=== PATIENT | female | born 1945 | race Caucasian/White ===

== ENCOUNTER → 2016-07-20 | Outpatient (CLI) | payer MEDICARE ==
[2015-05-04 11:15] VITALS: BP 168/93
[~2016-07-20] MED LIST: ACLI400A2 IH; ALBU8.5H6 IH; AMLO5TAB2 PO; ASPI-482 PO; CALC600T4 PO; CARV6.25 PO; DIAZ5TAB PO; ESCI10TA PO; FENO134C10 PO; FERR-26 PO; FURO-69 PO; HYDR-2762 PO; LOSA50TA2 PO; SIMV20TA PO; Vitamin D
[2016-07-20 13:57] LABS: BASO % 1 % (0-3); EOS % 6 % (0-3); HEMATOCRIT 31.4 % (36.0-47.0); HEMOGLOBIN 9.8 g/dL (12.0-15.5); LYMPH # 0.7 x10^3/uL (1.0-4.8); LYMPH % 17 % (24-48); MEAN CORPUSCULAR HEMOGLOBIN 33 pg (25-35); MEAN CORPUSCULAR HGB CONC 31 g/dL (31-37); MEAN CORPUSCULAR VOLUME 104 fL (79-100); MONO % 10 % (0-9); NEUT % 65 % (31-73); PLATELET COUNT 158 x10^3/uL (140-400); RED BLOOD COUNT 3.01 x10^6/uL (3.50-5.40); RED CELL DISTRIBUTION WIDTH 13.3 % (11.5-14.5); WHITE BLOOD COUNT 3.9 x10^3/uL (4.0-11.0)
[2016-07-20 14:14] LABS: ALBUMIN 1.9 g/dL (3.4-5.0); ALBUMIN/GLOBULIN RATIO 0.5 (1.0-1.7); CALCIUM 9.5 mg/dL (8.5-10.1); CREATININE 2.3 mg/dL (0.6-1.0); GFR 20.8; MAGNESIUM 1.6 mg/dL (1.8-2.4); PHOSPHORUS 3.5 mg/dL (2.6-4.7); POTASSIUM 4.8 mmol/L (3.5-5.1); TOTAL BILIRUBIN 0.4 mg/dL (0.2-1.0); TOTAL PROTEIN 5.7 g/dL (6.4-8.2); URIC ACID 8.8 mg/dL (2.6-6.0)
[2016-07-21 01:11] LABS: UR PROTEIN RD 179.2 mg/dL (Not Estab.)
[2016-07-21 02:15] LABS: VITAMIN D25(OH)TOTAL 36.9 ng/mL (30.0-100.0)
== END | disposition home or self-care (01) ==
LOC: LAB 13:32
PROVIDERS: ATTEND Internal Medicine Nephrology
DX: I12.9 Hypertensive chronic kidney disease with stage 1 through stage 4 chronic kidney disease, or unspecified chronic kidney disease (principal); N18.4 Chronic kidney disease, stage 4 (severe); N20.2 Calculus of kidney with calculus of ureter; R60.0 Localized edema; D63.1 Anemia in chronic kidney disease; Z68.25 Body mass index [BMI] 25.0-25.9, adult
CPT/HCPCS: 36415; 80053; 82306; 82570; 83735; 84100; 84156; 84443; 84550; 85027

== ENCOUNTER → 2016-08-10 | Outpatient (CLI) | payer MEDICARE ==
[2015-05-04 11:15] VITALS: BP 168/93
--- NOTE | 2016-08-10 11:27 | RAD ---
Indication:Anemia. Chronic renal disease. Grayscale images of the abdomen were obtained. Comparison none Liver:A focal mass lesion is not seen in the visualized liver Gallbladder:No definite gallbladder pathology seen. The common bile duct diameter of approximately 6 mm is normal. Spleen:No significant finding. Occasional calcifications noted associated with the spleen. There is a 1.5 cm nodule immediately adjacent to the spleen likely reflecting a splenule Pancreas:Poorly visualized and largely obscured. That portion of the head and proximal body of the pancreas which was seen appeared unremarkable Kidneys:Both kidneys are somewhat small. Cortical thinning is noted associated with both. There are cysts seen associated with both kidneys the largest on the right measuring almost 4 cm and the largest on the left approaching 3 cm Abdominal aorta and IVC:The abdominal aorta was not well visualized and partially obscured. That portion of the abdominal aorta which was seen appeared unremarkable. The inferior vena cava, similarly, was not well visualized. Ancillary findings:None Impression:No acute finding. Chronic renal disease with bilateral cysts. Midline structures partially obscured
== END | disposition home or self-care (01) ==
LOC: US 10:28
PROVIDERS: ATTEND Nurse Practitioner Adult Health
DX: N18.9 Chronic kidney disease, unspecified (principal); N28.1 Cyst of kidney, acquired; D73.89 Other diseases of spleen; Z86.2 Personal history of diseases of the blood and blood-forming organs and certain disorders involving the immune mechanism
CPT/HCPCS: 76700

== ENCOUNTER → 2016-08-11 | Outpatient (CLI) | payer MEDICARE ==
[2015-05-04 11:15] VITALS: BP 168/93
== END | disposition home or self-care (01) ==
LOC: PMGWOUND 14:18
PROVIDERS: ATTEND Emergency Medicine Undersea and Hyperbaric Medicine
DX: I87.312 Chronic venous hypertension (idiopathic) with ulcer of left lower extremity (principal); L97.221 Non-pressure chronic ulcer of left calf limited to breakdown of skin; J44.9 Chronic obstructive pulmonary disease, unspecified; I12.9 Hypertensive chronic kidney disease with stage 1 through stage 4 chronic kidney disease, or unspecified chronic kidney disease; N18.4 Chronic kidney disease, stage 4 (severe); Z68.25 Body mass index [BMI] 25.0-25.9, adult; R60.9 Edema, unspecified; Z87.891 Personal history of nicotine dependence
CPT/HCPCS: 29581

== ENCOUNTER → 2016-08-15 | Outpatient (CLI) | payer MEDICARE ==
[2015-05-04 11:15] VITALS: BP 168/93
== END | disposition home or self-care (01) ==
LOC: PMGWOUND 14:11
PROVIDERS: ATTEND Emergency Medicine Undersea and Hyperbaric Medicine
DX: I87.312 Chronic venous hypertension (idiopathic) with ulcer of left lower extremity (principal); L97.221 Non-pressure chronic ulcer of left calf limited to breakdown of skin; J44.9 Chronic obstructive pulmonary disease, unspecified; Z87.891 Personal history of nicotine dependence
CPT/HCPCS: 29581

== ENCOUNTER → 2016-08-19 | Outpatient (CLI) | payer MEDICARE ==
[2015-05-04 11:15] VITALS: BP 168/93
== END | disposition home or self-care (01) ==
LOC: PMGWOUND 11:16
PROVIDERS: ATTEND Preventive Medicine Undersea and Hyperbaric Medicine
DX: I87.312 Chronic venous hypertension (idiopathic) with ulcer of left lower extremity (principal); L97.221 Non-pressure chronic ulcer of left calf limited to breakdown of skin; J44.9 Chronic obstructive pulmonary disease, unspecified; R60.9 Edema, unspecified; I12.9 Hypertensive chronic kidney disease with stage 1 through stage 4 chronic kidney disease, or unspecified chronic kidney disease; N18.4 Chronic kidney disease, stage 4 (severe); Z68.25 Body mass index [BMI] 25.0-25.9, adult; Z87.891 Personal history of nicotine dependence
CPT/HCPCS: 29581

== ENCOUNTER → 2016-08-24 | Outpatient (CLI) | payer MEDICARE ==
[2015-05-04 11:15] VITALS: BP 168/93
== END | disposition home or self-care (01) ==
LOC: PMGWOUND 12:48
PROVIDERS: ATTEND Surgery
DX: I87.312 Chronic venous hypertension (idiopathic) with ulcer of left lower extremity (principal); L97.221 Non-pressure chronic ulcer of left calf limited to breakdown of skin; J44.9 Chronic obstructive pulmonary disease, unspecified; I12.9 Hypertensive chronic kidney disease with stage 1 through stage 4 chronic kidney disease, or unspecified chronic kidney disease; N18.4 Chronic kidney disease, stage 4 (severe); Z87.891 Personal history of nicotine dependence
CPT/HCPCS: 29581

== ENCOUNTER → 2016-08-24 | Outpatient (CLI) | payer MEDICARE ==
[2015-05-04 11:15] VITALS: BP 168/93
--- NOTE | 2016-08-25 01:17 | PAIN ---
DATE OF SERVICE: 08/24/2016 PROGRESS NOTE FOR PAIN CLINIC DIAGNOSES: 1. Low back pain with lumbar degenerative disk disease. 2. Thoracic degenerative disk disease. HISTORY OF PRESENT ILLNESS: The patient is a 71-year-old female who returns for followup status post medication management with hydrocodone. The patient has been on very stable regimen with this, reports she is doing fairly well, about a 75-80% improvement as per previous report. With the medications, the patient reports no significant side effects, occasionally has constipation, but she stated it is once in a "blue ochoa." The patient reports her pain ranging from 0-4 on a scale of 10 and is currently 0. She has had a slight sinus infection and cold and she is not feeling very well today, because of that has a slight cough and sneeze, but otherwise is doing very well. The patient has had appropriate K-TRACS reporting as well as appropriate urinalysis to date without aberrancies. The patient reports otherwise doing well, is very pleased with her progress, reports her pain is well controlled, sleeping well at night, sporadically awakens but not because of pain. PHYSICAL EXAMINATION: VITAL SIGNS: Today, the patient's blood pressure is 157/78, pulse 69, respirations are 20, temperature is 97.9 degrees Fahrenheit. Height is 4 feet 10 inches. GENERAL: The patient is awake, alert, oriented, appropriate, very pleasant demeanor. HEENT: Head shows normocephalic, atraumatic. Extraocular movements are intact and symmetrical. The patient is wearing a nasal cannula. NECK: Shows anterior throat supple without palpable lymphadenopathy noted. Swallow reflex is symmetrical. Neck shows full rotational motion including extension and flexion. CHEST: Shows breath sounds coarse, but clear to auscultation bilaterally, normal on inspection. HEART: Shows S1 and S2 clear. No murmurs auscultated. ABDOMEN: Soft, nontender, nondistended. No palpable organomegaly is noted. No rebound or guarding. BACK: The patient's back shows grossly midline spine with increased thoracic kyphosis and some flattening of lumbar lordotic curvature and some mild tenderness to palpation in the lower portion of the thoracic paraspinous muscles in the upper and middle distribution of the lumbar paraspinous muscles, but normal muscle girth without atrophy, hypertrophy or radiation of pain. EXTREMITIES: Lower extremities show tenderness over the lower legs on the anterior and posterior aspect, but only diffusely and is consistent with previous exam, has approximately 1-2+ edema in the bilateral ankles to approximately half the distance to the knees on the bilateral lower extremities. The patient shows good flexion and extension at approximately 4 on a scale of 5 with dorsiflexion and extension bilaterally. Options were discussed with the patient. The patient's old chart was reviewed as her current medication regimen updated. Current review of systems updated today as well. We will refill the patient's hydrocodone 7.5 mg a 2-month supply with instructions, side effects to be aware of were discussed. Again, the patient has had appropriate K-TRACS reporting to date, appropriate urinalysis to date without aberrancies. The patient will follow up in approximately 2 months or sooner if necessary. YENNY LANCASTER MD DR: ALEXANDER/kvng JOB#: [id number] / [id number]
== END | disposition home or self-care (01) ==
LOC: PNCL 14:25
PROVIDERS: ATTEND Anesthesiology
DX: M51.36 Other intervertebral disc degeneration, lumbar region (principal); M51.34 Other intervertebral disc degeneration, thoracic region
CPT/HCPCS: G0463

== ENCOUNTER → 2016-08-31 | Outpatient (CLI) | payer MEDICARE ==
[2015-05-04 11:15] VITALS: BP 168/93
== END | disposition home or self-care (01) ==
LOC: PMGWOUND 12:48
PROVIDERS: ATTEND Surgery
DX: I87.312 Chronic venous hypertension (idiopathic) with ulcer of left lower extremity (principal); L97.221 Non-pressure chronic ulcer of left calf limited to breakdown of skin; J44.9 Chronic obstructive pulmonary disease, unspecified; I12.9 Hypertensive chronic kidney disease with stage 1 through stage 4 chronic kidney disease, or unspecified chronic kidney disease; N18.4 Chronic kidney disease, stage 4 (severe); Z87.891 Personal history of nicotine dependence
CPT/HCPCS: 99213

== ENCOUNTER → 2016-09-06 | Outpatient (CLI) | payer MEDICARE ==
[2015-05-04 11:15] VITALS: BP 168/93
== END | disposition home or self-care (01) ==
LOC: PMGWOUND 10:03
PROVIDERS: ATTEND Emergency Medicine Undersea and Hyperbaric Medicine
DX: I87.312 Chronic venous hypertension (idiopathic) with ulcer of left lower extremity (principal); L97.221 Non-pressure chronic ulcer of left calf limited to breakdown of skin; J44.9 Chronic obstructive pulmonary disease, unspecified; Z87.891 Personal history of nicotine dependence; I12.9 Hypertensive chronic kidney disease with stage 1 through stage 4 chronic kidney disease, or unspecified chronic kidney disease; N18.4 Chronic kidney disease, stage 4 (severe); R60.9 Edema, unspecified; Z68.25 Body mass index [BMI] 25.0-25.9, adult
CPT/HCPCS: 29581

== ENCOUNTER → 2016-09-09 | Outpatient (CLI) | payer MEDICARE ==
[2015-05-04 11:15] VITALS: BP 168/93
== END | disposition home or self-care (01) ==
LOC: PMGWOUND 11:54
PROVIDERS: ATTEND Preventive Medicine Undersea and Hyperbaric Medicine
DX: I87.312 Chronic venous hypertension (idiopathic) with ulcer of left lower extremity (principal); L97.221 Non-pressure chronic ulcer of left calf limited to breakdown of skin; J44.9 Chronic obstructive pulmonary disease, unspecified; I12.9 Hypertensive chronic kidney disease with stage 1 through stage 4 chronic kidney disease, or unspecified chronic kidney disease; N18.4 Chronic kidney disease, stage 4 (severe); Z87.891 Personal history of nicotine dependence
CPT/HCPCS: 29581

== ENCOUNTER → 2016-09-15 | Outpatient (CLI) | payer MEDICARE ==
[2015-05-04 11:15] VITALS: BP 168/93
== END | disposition home or self-care (01) ==
LOC: PMGWOUND 10:42
PROVIDERS: ATTEND Emergency Medicine Undersea and Hyperbaric Medicine
DX: I87.312 Chronic venous hypertension (idiopathic) with ulcer of left lower extremity (principal); L97.221 Non-pressure chronic ulcer of left calf limited to breakdown of skin; J44.9 Chronic obstructive pulmonary disease, unspecified; Z87.891 Personal history of nicotine dependence
CPT/HCPCS: 29581

== ENCOUNTER → 2016-09-22 | Outpatient (CLI) | payer MEDICARE ==
[2015-05-04 11:15] VITALS: BP 168/93
== END | disposition home or self-care (01) ==
LOC: PMGWOUND 11:06
PROVIDERS: ATTEND Emergency Medicine Undersea and Hyperbaric Medicine
DX: I87.312 Chronic venous hypertension (idiopathic) with ulcer of left lower extremity (principal); L97.221 Non-pressure chronic ulcer of left calf limited to breakdown of skin; J44.9 Chronic obstructive pulmonary disease, unspecified; I12.9 Hypertensive chronic kidney disease with stage 1 through stage 4 chronic kidney disease, or unspecified chronic kidney disease; E11.22 Type 2 diabetes mellitus with diabetic chronic kidney disease; N18.4 Chronic kidney disease, stage 4 (severe); Z87.891 Personal history of nicotine dependence
CPT/HCPCS: 99213

== ENCOUNTER → 2016-10-19 | Outpatient (CLI) | payer MEDICARE ==
[2015-05-04 11:15] VITALS: BP 168/93
[~2016-10-19] MED LIST changes: -ESCI10TA PO; +ESCITALOPRAM OX10 MG PO
[2016-10-19 12:52] LABS: BASO % 0 % (0-3); EOS % 4 % (0-3); HEMATOCRIT 29.4 % (36.0-47.0); HEMOGLOBIN 9.2 g/dL (12.0-15.5); LYMPH # 0.6 x10^3/uL (1.0-4.8); LYMPH % 12 % (24-48); MEAN CORPUSCULAR HEMOGLOBIN 34 pg (25-35); MEAN CORPUSCULAR HGB CONC 31 g/dL (31-37); MEAN CORPUSCULAR VOLUME 108 fL (79-100); MONO % 9 % (0-9); NEUT % 75 % (31-73); PLATELET COUNT 145 x10^3/uL (140-400); RED BLOOD COUNT 2.72 x10^6/uL (3.50-5.40); RED CELL DISTRIBUTION WIDTH 16.2 % (11.5-14.5); WHITE BLOOD COUNT 5.6 x10^3/uL (4.0-11.0)
[2016-10-19 12:58] LABS: ALBUMIN 1.8 g/dL (3.4-5.0); ALBUMIN/GLOBULIN RATIO 0.5 (1.0-1.7); CALCIUM 8.7 mg/dL (8.5-10.1); CREATININE 2.6 mg/dL (0.6-1.0); GFR 18.1; MAGNESIUM 2.3 mg/dL (1.8-2.4); PHOSPHORUS 4.5 mg/dL (2.6-4.7); TOTAL BILIRUBIN 0.5 mg/dL (0.2-1.0); TOTAL PROTEIN 5.6 g/dL (6.4-8.2); URIC ACID 4.8 mg/dL (2.6-6.0)
[2016-10-19 13:03] LABS: POTASSIUM 5.2 mmol/L (3.5-5.1)
[2016-10-20 04:16] LABS: PTH INTACT 24 pg/mL (15-65)
[2016-10-20 06:17] LABS: UR PROTEIN RD 776.8 mg/dL (Not Estab.)
== END | disposition home or self-care (01) ==
LOC: LAB 12:11
PROVIDERS: ATTEND Internal Medicine Nephrology
DX: I12.9 Hypertensive chronic kidney disease with stage 1 through stage 4 chronic kidney disease, or unspecified chronic kidney disease (principal); N18.4 Chronic kidney disease, stage 4 (severe); E79.0 Hyperuricemia without signs of inflammatory arthritis and tophaceous disease; R60.9 Edema, unspecified
CPT/HCPCS: 36415; 80053; 82570; 83735; 83970; 84100; 84156; 84443; 84550; 85027

== ENCOUNTER → 2016-10-19 | Outpatient (CLI) | payer MEDICARE ==
[2015-05-04 11:15] VITALS: BP 168/93
== END | disposition home or self-care (01) ==
LOC: PNCL 11:14
PROVIDERS: ATTEND Anesthesiology
DX: M51.36 Other intervertebral disc degeneration, lumbar region (principal); G89.18 Other acute postprocedural pain
CPT/HCPCS: G0463

== ENCOUNTER → 2016-11-01 | Outpatient (CLI) | payer MEDICARE ==
[2015-05-04 11:15] VITALS: BP 168/93
== END | disposition home or self-care (01) ==
LOC: PMGWOUND 13:48
PROVIDERS: ATTEND Emergency Medicine Undersea and Hyperbaric Medicine
DX: I87.312 Chronic venous hypertension (idiopathic) with ulcer of left lower extremity (principal); E11.622 Type 2 diabetes mellitus with other skin ulcer; L97.221 Non-pressure chronic ulcer of left calf limited to breakdown of skin; J44.9 Chronic obstructive pulmonary disease, unspecified; E11.22 Type 2 diabetes mellitus with diabetic chronic kidney disease; I12.9 Hypertensive chronic kidney disease with stage 1 through stage 4 chronic kidney disease, or unspecified chronic kidney disease; N18.4 Chronic kidney disease, stage 4 (severe); Z68.25 Body mass index [BMI] 25.0-25.9, adult; Z87.891 Personal history of nicotine dependence
CPT/HCPCS: 29581

== ENCOUNTER → 2016-11-08 | Outpatient (CLI) | payer MEDICARE ==
[2015-05-04 11:15] VITALS: BP 168/93
== END | disposition home or self-care (01) ==
LOC: PMGWOUND 09:15
PROVIDERS: ATTEND Emergency Medicine Undersea and Hyperbaric Medicine
DX: I87.312 Chronic venous hypertension (idiopathic) with ulcer of left lower extremity (principal); L97.221 Non-pressure chronic ulcer of left calf limited to breakdown of skin; J44.9 Chronic obstructive pulmonary disease, unspecified; I12.9 Hypertensive chronic kidney disease with stage 1 through stage 4 chronic kidney disease, or unspecified chronic kidney disease; N18.4 Chronic kidney disease, stage 4 (severe); Z87.891 Personal history of nicotine dependence
CPT/HCPCS: 99214

== ENCOUNTER → 2016-11-15 | Outpatient (CLI) | payer MEDICARE ==
[2015-05-04 11:15] VITALS: BP 168/93
== END | disposition home or self-care (01) ==
LOC: PMGWOUND 13:20
PROVIDERS: ATTEND Emergency Medicine Undersea and Hyperbaric Medicine
DX: I87.312 Chronic venous hypertension (idiopathic) with ulcer of left lower extremity (principal); E11.622 Type 2 diabetes mellitus with other skin ulcer; L97.221 Non-pressure chronic ulcer of left calf limited to breakdown of skin; L03.115 Cellulitis of right lower limb; J44.9 Chronic obstructive pulmonary disease, unspecified; E11.22 Type 2 diabetes mellitus with diabetic chronic kidney disease; I12.9 Hypertensive chronic kidney disease with stage 1 through stage 4 chronic kidney disease, or unspecified chronic kidney disease; N18.4 Chronic kidney disease, stage 4 (severe); R60.9 Edema, unspecified; Z87.891 Personal history of nicotine dependence
CPT/HCPCS: 99214

== ENCOUNTER → 2016-11-22 | Outpatient (CLI) | payer MEDICARE ==
[2015-05-04 11:15] VITALS: BP 168/93
== END | disposition home or self-care (01) ==
LOC: PMGWOUND 13:41
PROVIDERS: ATTEND Emergency Medicine Undersea and Hyperbaric Medicine
DX: I87.312 Chronic venous hypertension (idiopathic) with ulcer of left lower extremity (principal); L97.221 Non-pressure chronic ulcer of left calf limited to breakdown of skin; J44.9 Chronic obstructive pulmonary disease, unspecified; E11.22 Type 2 diabetes mellitus with diabetic chronic kidney disease; N18.4 Chronic kidney disease, stage 4 (severe); Z87.891 Personal history of nicotine dependence
CPT/HCPCS: 99214

== ENCOUNTER → 2016-11-29 | Outpatient (CLI) | payer MEDICARE ==
[2015-05-04 11:15] VITALS: BP 168/93
== END | disposition home or self-care (01) ==
LOC: PMGWOUND 13:13
PROVIDERS: ATTEND Emergency Medicine Undersea and Hyperbaric Medicine
DX: I87.312 Chronic venous hypertension (idiopathic) with ulcer of left lower extremity (principal); E11.622 Type 2 diabetes mellitus with other skin ulcer; L97.221 Non-pressure chronic ulcer of left calf limited to breakdown of skin; J44.9 Chronic obstructive pulmonary disease, unspecified; E11.22 Type 2 diabetes mellitus with diabetic chronic kidney disease; I12.9 Hypertensive chronic kidney disease with stage 1 through stage 4 chronic kidney disease, or unspecified chronic kidney disease; N18.4 Chronic kidney disease, stage 4 (severe); Z99.2 Dependence on renal dialysis; Z87.891 Personal history of nicotine dependence; Z68.25 Body mass index [BMI] 25.0-25.9, adult
CPT/HCPCS: 99214

== ENCOUNTER → 2016-12-02 | Outpatient (CLI) | payer MEDICARE ==
[2015-05-04 11:15] VITALS: BP 168/93
[2016-12-02 13:47] LABS: BASO % 0 % (0-3); EOS % 3 % (0-3); HEMATOCRIT 27.7 % (36.0-47.0); HEMOGLOBIN 8.8 g/dL (12.0-15.5); LYMPH # 0.6 x10^3/uL (1.0-4.8); LYMPH % 8 % (24-48); MEAN CORPUSCULAR HEMOGLOBIN 35 pg (25-35); MEAN CORPUSCULAR HGB CONC 32 g/dL (31-37); MEAN CORPUSCULAR VOLUME 111 fL (79-100); MONO % 11 % (0-9); NEUT % 78 % (31-73); PLATELET COUNT 153 x10^3/uL (140-400); RED BLOOD COUNT 2.51 x10^6/uL (3.50-5.40); RED CELL DISTRIBUTION WIDTH 16.2 % (11.5-14.5); WHITE BLOOD COUNT 7.5 x10^3/uL (4.0-11.0)
[2016-12-02 14:02] LABS: ALBUMIN 1.6 g/dL (3.4-5.0); CALCIUM 8.5 mg/dL (8.5-10.1); CREATININE 2.5 mg/dL (0.6-1.0); GFR 18.9; PHOSPHORUS 3.9 mg/dL (2.6-4.7); POTASSIUM 5.2 mmol/L (3.5-5.1)
[2016-12-02 14:40] LABS: PLT ESTIMATE ADEQUATE (ADEQUATE)
== END | disposition home or self-care (01) ==
LOC: LAB 12:47
PROVIDERS: ATTEND Internal Medicine Nephrology
DX: I12.9 Hypertensive chronic kidney disease with stage 1 through stage 4 chronic kidney disease, or unspecified chronic kidney disease (principal); N18.5 Chronic kidney disease, stage 5; D63.1 Anemia in chronic kidney disease; R60.9 Edema, unspecified
CPT/HCPCS: 36415; 80069; 85025

== ENCOUNTER → 2016-12-06 | Outpatient (CLI) | payer MEDICARE ==
[2015-05-04 11:15] VITALS: BP 168/93
[~2016-12-06] MED LIST changes: +CHOL10003 PO
== END | disposition home or self-care (01) ==
LOC: PMGWOUND 13:23
PROVIDERS: ATTEND Emergency Medicine Undersea and Hyperbaric Medicine
DX: I87.312 Chronic venous hypertension (idiopathic) with ulcer of left lower extremity (principal); E11.622 Type 2 diabetes mellitus with other skin ulcer; L97.221 Non-pressure chronic ulcer of left calf limited to breakdown of skin; J44.9 Chronic obstructive pulmonary disease, unspecified; E11.22 Type 2 diabetes mellitus with diabetic chronic kidney disease; I12.0 Hypertensive chronic kidney disease with stage 5 chronic kidney disease or end stage renal disease; N18.5 Chronic kidney disease, stage 5; Z99.2 Dependence on renal dialysis; Z87.891 Personal history of nicotine dependence
CPT/HCPCS: 99214

== ENCOUNTER 2016-12-09 07:10 | Inpatient (IN) | payer MEDICARE ==
[~2016-12-09] VITALS: Ht 124.5 cm; Wt 47.7 kg
[~2016-12-09 07:10] MED LIST changes: -CHOL10003 PO
[2016-12-09] MEDS ORDERED: 0.9 % SODIUM CHLORIDE 10 ML DISP.SYRIN. IV PRN (07:30)
[2016-12-09] MEDS ORDERED: IPRATRPIUM/ALBUTEROL 0.5/2.5MG 3 ML NEBU. NEB ONE ×3 (07:45→08:15)
--- NOTE | 2016-12-09 07:45 | PHYS DOC ---
Past Medical History Past Medical History: Anemia, CAD, CHF, Depression, High Cholesterol, Heart Disease, Hypertension Past Surgical History: Coronary Bypass Surgery, Knee Replacement, Other Additional Past Surgical Histo: cagb, Alcohol Use: None Drug Use: None Adult General Chief Complaint Chief Complaint: SHORTNESS OF BREATH ANNA CASTILLO Is a pleasant 71 female with history of COPD, CAD, hypertension, hyperlipidemia , emphysema who presents with progressive shortness of breath and referral from her primary care doctor to the emergency department for fear of congestive heart failure. She has history of renal insufficiency and is presently being monitored for her kidney function for possible dialysis shunt placement. Over the last several days she has had increased shortness of breath with exertion. Although she is supposed be taking DuoNebs at home she has not used any treatments. Family has noticed an noted increased shortness of breath with exertion without chest pain, she's had a slight nonproductive cough without fevers chills or URI symptoms. Patient denies any change in medications or any food or salt indiscretion. Patient denies any weight gain or night sweats, fevers, chills or other symptoms. Patient is normally home with her been able to function at home but has noticed decreased exercise tolerance as well. She does see a fisheries officer, press department manager and wildlife refuge specialist here at [facility].. At this point in time she is only complaining of shortness of breath. She does have a history of lower extremity edema in secondary to vein retrieval for her bypass surgery. At bypass surgery was completed 7 years ago. Differential diagnosis: Acute myocardial ischemia, heart failure, cardiac tamponade, bronchospasm, pulmonary embolism, pneumothorax, pulmonary infection i.e. bronchitis or pneumonia, upper airway obstruction, anaphylaxis, aspiration , psychogenic, pulmonary contusion, toxidrome, pneumomediastinum, noncardiogenic pulmonary edema or ARDS, COPD, tuberculosis, cystic fibrosis, asthma, high altitude pulmonary edema, valvular dysfunction, cardiac dysrhythmia , stroke, neuromuscular diseases like myasthenia gravis gravis, ALS, Guillain- Hernandez syndrome, metabolic acidosis to include diabetic ketoacidosis, sepsis, and obstructive disorders like massive obesity was considered upon arrival. Review of Systems Review of Systems Constitutional: Denies fever or chills [] Eyes: Denies change in visual acuity, redness, or eye pain [] HENT: Denies nasal congestion or sore throat [] Respiratory: He does have a nonproductive cough and increasing shortness of breath. Cardiovascular: No additional information not addressed in HPI [] GI: Denies abdominal pain, nausea, vomiting, bloody stools or diarrhea [] : Denies dysuria or hematuria [] Musculoskeletal: Denies back pain or joint pain [] Integument: Denies rash or skin lesions [] Neurologic: She describes global weakness. She has had several falls over the last several weeks due to his generalized weakness. Endocrine: Denies polyuria or polydipsia [] Current Medications Current Medications Current Medications Medications (Trade) Dose Ordered Sig/Jacquie Start Time Stop Time Status Last Admin Dose Admin Acetaminophen (Tylenol) 650 mg PRN Q4HRS PRN 12/09/16 08:45 12/10/16 08:44 Albuterol/ Ipratropium (Duoneb) 3 ml RTQID 12/09/16 12:00 12/10/16 11:59 Aspirin (Children'S Aspirin) 324 mg 1X ONCE 12/09/16 08:00 12/09/16 08:01 DC 12/09/16 08:09 324 MG Ciprofloxacin Lactate 200 ml @ 200 mls/hr 1X ONCE 12/09/16 09:30 12/09/16 10:29 Furosemide (Lasix) 40 mg 1X ONCE 12/09/16 09:00 12/09/16 09:01 DC Methylprednisolone Sodium Succinate (SOLU-Medrol 125MG VIAL) 125 mg 1X ONCE 12/09/16 08:15 12/09/16 08:16 DC 12/09/16 08:08 125 MG Nitroglycerin (Nitrostat) 0.4 mg PRN Q5MIN PRN 12/09/16 08:45 12/10/16 08:44 Ondansetron HCl (Zofran) 4 mg PRN Q8HRS PRN 12/09/16 08:45 12/10/16 08:44 Sodium Chloride (Normal Saline Flush) 10 ml QSHIFT PRN 12/09/16 07:30 Allergies Allergies Allergies Coded Allergies Type Severity Reaction Last Updated Verified quinine Allergy Severe Anaphylaxis 04/26/13 Yes Physical Exam Physical Exam Vital signs recorded on the chart patient did be hypertensive otherwise normal looking vital signs. Constitutional: Impression is thin and cachectic with an increased respiratory rate although not using accessory muscles or retractions. Patient is pale looking very comfortable. She is nontoxic in appearance. HENT: Normocephalic, atraumatic, bilateral external ears normal, oropharynx moist, no oral exudates, nose normal. [] Eyes: PERRLA, EOMI, conjunctiva are very pale and injected. Neck: Normal range of motion, no tenderness, supple, no stridor. [] Cardiovascular:Heart rate regular rhythm, no murmur [] Lungs & Thorax: Decreased breath sounds bilaterally with wheezes throughout. She has no focal area of crackles or rales. Abdomen: Bowel sounds normal, soft, no tenderness, no masses, no pulsatile masses. [] Skin: It is warm and dry and there are multiple areas of ecchymoses secondary to falls revolving last several weeks. No focal bony tenderness to palpation the skin tears no rash. Patient does have some weeping of her lower legs bilaterally and that she shows +3 pitting edema up to the midthigh. Back: No tenderness, no CVA tenderness. [] Extremities: No tenderness, no cyanosis, no clubbing, ROM intact, significant edema of the lower extremities bilaterally. Neurologic: Alert and oriented X 3, normal motor function, normal sensory function, no focal deficits noted. [] Psychologic: Affect normal, judgement normal, mood normal. [] Current Patient Data Vital Signs Vital Signs Date Time Temp Pulse Resp B/P (MAP) Pulse Ox O2 Delivery O2 Flow Rate FiO2 12/09/16 07:55 97 Nasal Cannula 2.0 12/09/16 07:20 97.9 77 16 142/87 (105) 97.9 Lab Values Laboratory Tests Test 12/09/16 07:30 12/09/16 07:55 White Blood Count 7.0 x10^3/uL (4.0-11.0) Red Blood Count 2.95 x10^6/uL (3.50-5.40) L Hemoglobin 10.1 g/dL (12.0-15.5) L Hematocrit 32.4 % (36.0-47.0) L Mean Corpuscular Volume 110 fL (79-100) H Mean Corpuscular Hemoglobin 34 pg (25-35) Mean Corpuscular Hemoglobin Concent 31 g/dL (31-37) Red Cell Distribution Width 16.1 % (11.5-14.5) H Platelet Count 226 x10^3/uL (140-400) Neutrophils (%) (Auto) 78 % (31-73) H Lymphocytes (%) (Auto) 10 % (24-48) L Monocytes (%) (Auto) 10 % (0-9) H Eosinophils (%) (Auto) 3 % (0-3) Basophils (%) (Auto) 1 % (0-3) Neutrophils # (Auto) 5.4 x10^3uL (1.8-7.7) Lymphocytes # (Auto) 0.7 x10^3/uL (1.0-4.8) L Monocytes # (Auto) 0.7 x10^3/uL (0.0-1.1) Eosinophils # (Auto) 0.2 x10^3/uL (0.0-0.7) Basophils # (Auto) 0.0 x10^3/uL (0.0-0.2) Sodium Level 142 mmol/L (136-145) Potassium Level 5.2 mmol/L (3.5-5.1) H Chloride Level 105 mmol/L (98-107) Carbon Dioxide Level 33 mmol/L (21-32) H Anion Gap 4 (6-14) L Blood Urea Nitrogen 48 mg/dL (7-20) H Creatinine 2.2 mg/dL (0.6-1.0) H Estimated GFR (Cockcroft-Gault) 21.9 Glucose Level 116 mg/dL (70-99) H Calcium Level 8.8 mg/dL (8.5-10.1) Magnesium Level 2.2 mg/dL (1.8-2.4) Total Bilirubin 0.3 mg/dL (0.2-1.0) Direct Bilirubin 0.2 mg/dL (0.0-0.2) Aspartate Amino Transferase (AST) 38 U/L (15-37) H Alanine Aminotransferase (ALT) 21 U/L (14-59) Alkaline Phosphatase 84 U/L (46-116) Creatine Kinase 36 U/L (26-192) Creatine Kinase MB (Mass) 1.5 ng/mL (0.0-3.6) Creatine Kinase MB Relative Index % (0-4) Troponin I Quantitative 0.024 ng/mL (0.000-0.055) HO-Bmd-P-Type Natriuretic Peptide 38611 pg/mL (0-124) H Total Protein 5.4 g/dL (6.4-8.2) L Albumin 1.6 g/dL (3.4-5.0) L Lipase 129 U/L (73-393) Thyroid Stimulating Hormone (TSH) 1.524 uIU/mL (0.358-3.74) Urine Collection Type Unknown Urine Color Yellow Urine Clarity Cloudy Urine pH 7.0 Urine Specific [place] 1.010 Urine Protein >=300 mg/dL (NEG-TRACE) Urine Glucose (UA) Negative mg/dL (NEG) Urine Ketones (Stick) Negative mg/dL (NEG) Urine Blood Small (NEG) Urine Nitrite Negative (NEG) Urine Bilirubin Negative (NEG) Urine Urobilinogen Dipstick 0.2 mg/dL (0.2 mg/dL) Urine Leukocyte Esterase Moderate (NEG) Urine RBC 1-2 /HPF (0-2) Urine WBC >40 /HPF (0-4) Urine Squamous Epithelial Cells Few /LPF Urine Bacteria Many /HPF (0-FEW) Laboratory Tests 12/09/16 07:30 Laboratory Tests 12/09/16 07:30 EKG EKG EKG read by Dr. Solano timed 7:22 AM dosage heart rate is 77. Overall 152 QRS of 68 patient's QTc is 100 which is within normal limits. Patient's rhythm is regular is narrow demonstrating a few PVCs there is some T-wave flattening in the lateral leads which may represent ischemia. EKG read by Dr. Solano [] Radiology/Procedures Radiology/Procedures [] [address] [place] [address] IMAGING REPORT Signed PATIENT: SILVANA RASHEED ACCOUNT: [id number] : 1945 LOCATION: ER AGE: 71 SEX: F EXAM STATUS: REG ER ORD. PHYSICIAN: ANGELA SOLANO MD REASON: sob PROCEDURE: PORTABLE CHEST 1V Chest radiograph 12/09/2016 9:29 AM Indication: Shortness of breath and cough for 2 weeks Comparison: Chest radiograph 01/22/2013 Technique: Single portable upright frontal view of the chest is provided. Findings: Median sternotomy changes are present. Spinal augmentation changes are noted in the upper to mid thoracic spine. Cardiomediastinal silhouette is enlarged, stable. There is mild pulmonary vascular congestion. There is right basilar patchy airspace disease which may represent atelectasis and/or infiltrates in the appropriate clinical setting. Calcified granulomas identified in the right midlung, stable. No pleural effusions or pneumothorax. Impression: 1. Stable enlarged cardiomediastinal silhouette with increased mild pulmonary vascular congestion which may be seen in the setting of congestive heart failure. 2. Increased airspace disease at the right lung base may reflect atelectasis and/or infiltrates. Follow-up radiograph in 3-4 weeks is recommended to ensure resolution. DICTATED and SIGNED BY: CLEMENTINA SIERRA MD DATE: 12/09/16 1067 CC: ANGELA SOLANO MD; MINDI DURAN ~ Course & Med Decision Making Course & Med Decision Making Pertinent Labs and Imaging studies reviewed. (See chart for details) [Organ Assembler note: Dr. Arvizu Organ Assembler called at of the service IM Consult called back at 8:42 am Discussed the case I presented and they agreed with admission. Time of acceptance 8:45 Differential diagnosis: Acute myocardial ischemia, heart failure, cardiac tamponade, bronchospasm, pulmonary embolism, pneumothorax, pulmonary infection i.e. bronchitis or pneumonia, upper airway obstruction, anaphylaxis, aspiration , psychogenic, pulmonary contusion, toxidrome, pneumomediastinum, noncardiogenic pulmonary edema or ARDS, COPD, tuberculosis, cystic fibrosis, asthma, high altitude pulmonary edema, valvular dysfunction, cardiac dysrhythmia , stroke, neuromuscular diseases like myasthenia gravis gravis, ALS, Guillain- Hernandez syndrome, metabolic acidosis to include diabetic ketoacidosis, sepsis, and obstructive disorders like massive obesity considered upon arrival and given her history of COPD and high prior heart disease congestive heart failure and is very likely as well as pulmonary edema. Patient over the course of her exam was given neb treatments and she felt markedly better as well as Solu- Medrol. It was noted that her B when was greater than 20,000 as well as an elevated creatinine of 2.2. But based on her physical exam without crackles or rales at the bases do not think she is at fluid overload on initial evaluation. Her chest x-ray did demonstrate increased cardia megaly with cephalization consistent with congestive heart failure. Although her B UN is 48 and creatinine is 2.2 she probably could use the removal of extra fluids at this time. I foresee given her other chronic lung disease of emphysema and COPD with there is also the possibility of atelectasis versus lower lung scar she had no elevation of her white count and a left shift. She was chronically anemic which is not new for this patient. Patient also noted to have a possible urinary tract infection with white blood cells. And leuk esterase in her urine with only a few epithelial cells. Given her debility patient had blood cultures drawn as well as lactic acid level I do not believe she is septic. Evaluate her for signs of respiratory and circulatory insufficiency. Patient tells me that their symptoms given during CC are improved. We reviewed labs and radiology reports with patient and any family at bedside. Patient feels markedly better already time is now 8:30 AM. Given her comorbidities and multiple medical problems I will admit her to the hospital. Total medicine consultation above please Impression at this time is COPD, CHF, UTI, generalized weakness, chronic anemia , chronic renal insufficiency, I spent approximately 45-50 minutes working and engaged directly in the patient care providing critical care evaluation this includes but not limited to time spent engaged in work directly related to the individual patients care. I spent time at the bedside, reviewing test results, discussing the case with staff, documenting the medical record and time spent with EMS discussing specific treatment issues when the patient presented and during his evaluation. Primary press department manager consult as well Dragon Disclaimer Dragon Disclaimer This electronic medical record was generated, in whole or in part, using a voice recognition dictation system. Departure Departure Impression: Primary Impression: COPD (chronic obstructive pulmonary disease) Additional Impressions: CHF (congestive heart failure) UTI (urinary tract infection) Weakness Anemia Renal insufficiency Disposition: ADMITTED INPATIENT Admitting Physician: Other Condition: GUARDED Referrals: MINDI DURAN (PCP) Problem Qualifiers ANGELA SOLANO MD Dec 09, 2016 07:45
[2016-12-09 07:48] LABS: BASO % 1 % (0-3); EOS % 3 % (0-3); HEMATOCRIT 32.4 % (36.0-47.0); HEMOGLOBIN 10.1 g/dL (12.0-15.5); LYMPH # 0.7 x10^3/uL (1.0-4.8); LYMPH % 10 % (24-48); MEAN CORPUSCULAR HEMOGLOBIN 34 pg (25-35); MEAN CORPUSCULAR HGB CONC 31 g/dL (31-37); MEAN CORPUSCULAR VOLUME 110 fL (79-100); MONO % 10 % (0-9); NEUT % 78 % (31-73); PLATELET COUNT 226 x10^3/uL (140-400); RED BLOOD COUNT 2.95 x10^6/uL (3.50-5.40); RED CELL DISTRIBUTION WIDTH 16.1 % (11.5-14.5)
--- NOTE | 2016-12-09 07:50 | RAD ---
Chest radiograph 12/09/2016 9:29 AM Indication: Shortness of breath and cough for 2 weeks Comparison: Chest radiograph 01/22/2013 Technique: Single portable upright frontal view of the chest is provided. Findings: Median sternotomy changes are present. Spinal augmentation changes are noted in the upper to mid thoracic spine. Cardiomediastinal silhouette is enlarged, stable. There is mild pulmonary vascular congestion. There is right basilar patchy airspace disease which may represent atelectasis and/or infiltrates in the appropriate clinical setting. Calcified granulomas identified in the right midlung, stable. No pleural effusions or pneumothorax. Impression: 1. Stable enlarged cardiomediastinal silhouette with increased mild pulmonary vascular congestion which may be seen in the setting of congestive heart failure. 2. Increased airspace disease at the right lung base may reflect atelectasis and/or infiltrates. Follow-up radiograph in 3-4 weeks is recommended to ensure resolution.
[2016-12-09] MEDS ORDERED: ASPIRIN CHEWABLE 81 MG TABLET. PO ONE (08:00)
--- NOTE | 2016-12-09 08:00 | EKG ---
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
[2016-12-09 08:03] LABS: BILIRUBIN,URINE NEGATIVE (NEG); GLUCOSE,URINE NEGATIVE (NEG); NITRITE,URINE NEGATIVE (NEG); PROTEIN,URINE >=300 mg/dL (NEG-TRACE); UROBILINOGEN,URINE 0.2 mg/dL (0.2 mg/dL)
[2016-12-09 08:06] LABS: CALCIUM 8.8 mg/dL (8.5-10.1); CREATININE 2.2 mg/dL (0.6-1.0); GFR 21.9; POTASSIUM 5.2 mmol/L (3.5-5.1)
[2016-12-09 08:14] LABS: ALBUMIN 1.6 g/dL (3.4-5.0); DIRECT BILIRUBIN 0.2 mg/dL (0.0-0.2); MAGNESIUM 2.2 mg/dL (1.8-2.4); TOTAL BILIRUBIN 0.3 mg/dL (0.2-1.0); TOTAL PROTEIN 5.4 g/dL (6.4-8.2)
[2016-12-09] MEDS ORDERED: methylPREDNISolone SOD SUCC PF 125 MG/2 ML VIAL. IV ONE (08:15)
[2016-12-09 08:20] LABS: CKMB MASS 1.5 ng/mL (0.0-3.6); CREATINE KINASE 36 U/L (26-192)
[2016-12-09 08:23] LABS: BACTERIA,URINE MANY /HPF (0-FEW); SQUAMOUS EPITHELIAL CELL,UR FEW /LPF; WBC,URINE >40 /HPF (0-4)
[2016-12-09] MEDS ORDERED: ACETAMINOPHEN 325 MG TABLET. PO PRN (08:45)
[2016-12-09] MEDS ORDERED: NITROGLYCERIN SUBLINGUAL 0.4 MG BOTTLE OF 25. SL PRN (08:45)
[2016-12-09] MEDS ORDERED: ONDANSETRON PF 4 MG/2 ML VIAL. IV PRN (08:45)
[2016-12-09] MEDS ORDERED: FUROSEMIDE 40 MG/4 ML VIAL. IVP ONE (09:00)
[2016-12-09] MEDS: CIPROFLOXACIN 400MG PREMIX 200 ML IV SCH ×2 (09:12→20:56)
[2016-12-09] MEDS ORDERED: CIPROFLOXACIN 400MG PREMIX 200 ML IV ONE (09:30)
--- NOTE | 2016-12-09 09:36 | ACF ---
Admit Criteria Forms Admit Criteria Forms Admit Criteria Forms COPD Clinical Indications for Admission to Inpatient Care (Cutler/check or initial the applicable condition/criteria) Admission is indicated for ANY ONE of the following (1)(2)(3): [ ]I. Acute exacerbation by high-risk comorbidity(e.g., pneumonia, dysrhythmia, heart failure, pleural effusion, pneumothorax) or severe underlying COPD (eg, baseline FEV1 less than 50% predicted) [ X]II. Inpatient admission required[A] rather than observation care (see Chronic Obstructive Pulmonary Disease: Observation Care) because of ANY ONE of the following: [X ]a) New or pre-existing signs or symptoms of COPD (eg, dyspnea or Tachypnea at rest or with minimal activity) that persist despite outpatient and observation care treatment [ ]b) New-onset hypoxemia (room air SaO2 less than 90%, PO2 less than 60 mm Hg (8.0 kPa)) that persists despite outpatient and observation care treatment [ ]c) Worsening of pre-existing hypoxemia (eg, new or increased requirement for supplemental oxygen to maintain oxygenation at baseline level) that persists despite outpatient and observation care treatment, with oxygen treatment needs performable only in acute inpatient setting [ ]d) Hypercarbia (PCO2 greater than 40 mm Hg (5.3 kPa))-induced respiratory acidosis (pH less than 7.35) that persists despite outpatient and observation care treatment [ ]e) Supplemental oxygen or respiratory treatments for over 24 hours that are performable only in acute inpatient setting [ ]f) Chest tube placement with active evacuation (e.g., suction, drainage) (6) [ ]g) Other condition, treatment or monitoring requiring inpatient admission [ ]III. Planned invasive surgical or diagnostic procedures requiring acute- care hospitalization [ ]IV. Acute respiratory failure (e.g., uncompensated hypercarbia, severe hypoxemia) [ ]V. Severe comorbid condition (e.g., severe steroid myopathy, acute vertebral fracture) that has acutely worsened pulmonary function [ ]. Altered mental status that is severe or persistent Extended stay beyond goal length of stay may be needed for (29)(30)(31)(32)(33) : [ ]a ) Respiratory Failure. [ ]b) Severe or persisting hypoxemia or hypercarbia [ ]c) Severe or persistent dyspnea [ ]d) Clinically significant Comorbidities (e.g. chronic heart failure, atrial fibrillation with rapid response, pneumonia)(36) [ ]e) Malnutrition (33) The original [facility] [employer] content created by [facility] has been revised. The portions of the content which have been revised are identified through the use of italic text, and [facility] has neither reviewed nor approved the modified material. All other unmodified content is copyright [facility] [employer]. Please see references footnoted in the original [facility] [employer] edition 2014 SHERIDAN ANTONIO Dec 09, 2016 09:36
[2016-12-09 10:53] VITALS: BP 205/81
[2016-12-09] MEDS: IPRATRPIUM/ALBUTEROL 0.5/2.5MG 3 ML NEBU. NEB SCH ×3 (10:59→19:26)
--- NOTE | 2016-12-09 11:59 | CONS ---
DATE OF CONSULTATION: PULMONARY CONSULTATION ATTENDING PHYSICIAN: Louise Arvizu M.D. REASON FOR CONSULTATION: Dyspnea, hypoxia, abnormal chest x-ray. HISTORY OF PRESENT ILLNESS: The patient is a 71-year-old pleasant female with history of diastolic congestive heart failure, history of chronic obstructive airway disease and on home oxygen. She presented to the hospital with increasing shortness of breath for the past one week. She also had a cough with some alicia sputum. No fever, no chills. She has chronic lower extremity edema and remains on home oxygen at 2 liters. There was no weight gain or weight loss. No nausea, vomiting or diarrhea. The patient's chest x-ray in the ER was consistent with bilateral interstitial infiltrates. I also have reviewed her CT films from 2016 and she had evidence of some parenchymal scarring, emphysema and fibrosis. PAST MEDICAL HISTORY: Significant for anemia, diastolic CHF, history of CAD, depression, dyslipidemia, heart disease, hypertension and COPD. PAST SURGICAL HISTORY: Coronary artery bypass surgery, knee replacement and CABG. ALLERGIES: QUININE. MEDICATIONS: Reviewed as listed in the MRAD including DuoNeb and Cipro. REVIEW OF SYSTEMS: Twelve-point system was obtained. Pertinent positives discussed in history of present illness, otherwise noncontributory. All systems that were negative were reviewed as well. SOCIAL HISTORY: Smoked for 35-40 years before, quitting 10 years ago. FAMILY HISTORY: Noncontributory to lungs. PHYSICAL EXAMINATION: VITAL SIGNS: Blood pressure was 182/77, pulse ox 99% on 2 liters, afebrile. HEENT: Sclerae nonicteric. NECK: Supple. LUNGS: Crackles at the bases and few rhonchi anteriorly. CARDIOVASCULAR: Regular rate and rhythm. ABDOMEN: Soft, nontender. EXTREMITIES: Bilateral 2+ pitting edema. LABORATORY DATA: Reviewed. White cell count 7.0, hemoglobin 10.1, platelets are 226. BUN is 48, creatinine of 2.2. ProBNP is 24,000. IMPRESSION: 1. Dyspnea secondary to suspected acute on chronic diastolic heart failure in the patient who probably has underlying parenchymal scarring/fibrosis and cannot exclude the progression of fibrosis. 2. Underlying chronic obstructive pulmonary disease. 3. Chronic respiratory failure, on home oxygen at 2 liters. 4. Chronic lower extremity edema. 5. History of diastolic dysfunction based on prior echo. 6. Renal insufficiency. RECOMMENDATIONS: 1. Continue with present oxygen. 2. Cautious diuresis. 3. Continue empiric antibiotic as she does have symptoms suggestive of acute bronchitis. 4. DuoNeb. 5. Obtain another echocardiogram. 6. If chest x-rays do not improve, then consider doing noncontrast CT chest to assess for fibrosis versus residual congestive heart failure. 7. DVT prophylaxis. 8. Discussed with the patient's and we will follow along with you. BEVERLY KNIGHT MD DR: ESPERANZA/kvng JOB#: [id number] / [id number]
[2016-12-09] MEDS ORDERED: CHOL10003 PO (13:00)
[2016-12-09 15:00] VITALS: BP 169/62
[2016-12-09 16:14] VITALS: BP 169/62
--- NOTE | 2016-12-09 19:17 | HP ---
ADMIT DATE: 12/09/2016 CHIEF COMPLAINT: Shortness of breath. HISTORY OF PRESENT ILLNESS: The patient is a 71-year-old woman with past medical history of COPD, CHF, who went to her primary care physician today for routine followup and was found with severe shortness of breath and therefore referred to the ER. She relates that herself she did not perceive any significant worsening in her respiratory symptoms, but had been coughing a little bit more. Family, however, had noticed shortness of breath. The patient denies any sputum production, any fevers, chills, any recent weight gain, night sweats or other symptoms. In Emergency Room, she was found hypoxic. Chest x-ray showed stably enlarged cardiomegaly as well as mild pulmonary vascular congestion and right basilar patchy airspace disease, which may represent atelectasis and/or infiltrates. PAST MEDICAL HISTORY: COPD, O2 dependent, CHF, CAD, hypertension, hypercholesterolemia. She is status post coronary bypass surgery, knee replacement, has mild renal insufficiency and anemia. FAMILY HISTORY: Positive for CAD in parents. SOCIAL HISTORY: Lives with her , children close by. She is able to ambulate short distances with walker in home, has a wheelchair for outside. Denies any ongoing toxic habits. ALLERGIES: QUININE. MEDICATIONS: Home medications reconciled with MAR. REVIEW OF SYSTEMS: Shortness of breath for her is improved. Denies any new symptoms in rest of organ system review. She does have chronic lower extremity pain and actually had been seen in [facility] with leg wrapping on her left lower extremity. PHYSICAL EXAMINATION: VITAL SIGNS: From today show a blood pressure of 169/62, heart rate of 86, respiratory rate at 18. She is afebrile, pulse ox 95 at 2 liters. GENERAL: This is an overweight, but frail appearing 71-year-old woman, alert and oriented, in no acute distress. HEENT: Shows no scleral icterus. Oral mucosa is pink and moist. NECK: Supple. Nasal cannula O2 in place. LUNGS: Fairly clear bilaterally anteriorly. HEART: Has regular rate and rhythm. ABDOMEN: Has positive bowel sounds, soft, nontender. EXTREMITIES: Show 2+ woody edema. There are small places with open resolving blisters on her left lower extremity as well. LABORATORY DATA: CBC with a WBC of 7.0, hemoglobin 10.1, MCV at 110, platelets at 226. Chemistries with a BUN and creatinine of 48 and 2.2, potassium at 5.2, mag at 2.2. LFTs with mildly elevated AST at 38, albumin at 1.6. UA positive for greater than 40 WBC and many bacteria. IMAGING STUDIES: Chest x-ray with cardiomegaly and increased airspace disease in the right lung base and the vascular congestion. ASSESSMENT AND PLAN: The patient is a 71-year-old woman with history of congestive heart failure as well as chronic obstructive pulmonary disease. By symptoms as well as a chest x-ray, suspicion is for acute congestive heart failure exacerbation. The infiltrate in her lungs actually had been noted before. We will obtain a pulmonary consult to help elucidate. Cover with antibiotics for now. Continue with her home O2 and nebulizers as well. Cardiology will be consulted as well to help manage her fluid status. She does have significant renal failure as well, which is mostly chronic. Have to monitor her closely with IV Lasix administration. The patient also has a current urinary tract infection. Empiric antibiotics will be started as well. Lastly, the patient has [id number] anemia, which is markedly macrocytic. We will obtain B12 and folate to rule out vitamin deficiency. This may be early form of MDS should vitamin B within normal limits. CARLITO CANNON MD DR: SUZY/nts JOB#: [id number] / [id number] [facility] SEAN PERKINS MD MTDD
[2016-12-09 19:59] VITALS: BP 171/67
[2016-12-09 23:59] VITALS: BP 165/77
[2016-12-10] MEDS ORDERED: ALBUTEROL SULFATE 8GM INHALER. IH SCH (01:00)
[2016-12-10] MEDS ORDERED: ALBUTEROL SULFATE 2.5 MG/3 ML NEBU. NEB PRN (01:15)
[2016-12-10 03:59] VITALS: BP 182/71
[2016-12-10 07:00] VITALS: BP 175/69
[2016-12-10] MEDS: IPRATRPIUM/ALBUTEROL 0.5/2.5MG 3 ML NEBU. NEB SCH ×3 (07:26→19:40)
[2016-12-10] MEDS: FUROSEMIDE 20 MG TABLET PO SCH (09:33)
[2016-12-10] MEDS: FENOFIBRATE,MICRONIZED 134 MG CAPSULE PO SCH (09:33)
[2016-12-10] MEDS: CHOLECALCIFEROL (VITAMIN D3) 1,000 UNIT TABLET PO SCH (09:33)
[2016-12-10] MEDS: CALCIUM CARBONATE 500 MG TABLET PO SCH ×2 (09:33→17:40)
[2016-12-10] MEDS: FERROUS SULFATE 325 MG TABLET. PO SCH ×2 (09:33→20:34)
[2016-12-10] MEDS: CARVEDILOL 6.25 MG TABLET. PO SCH ×2 (09:33→17:40)
[2016-12-10] MEDS: LOSARTAN POTASSIUM 50 MG TABLET. PO SCH (09:34)
[2016-12-10] MEDS: CIPROFLOXACIN 400MG PREMIX 200 ML IV SCH ×2 (09:34→20:35)
[2016-12-10] MEDS: ASPIRIN ENTERIC COATED 81 MG TABLET.DR. PO SCH (09:34)
[2016-12-10] MEDS: ESCITALOPRAM 5 MG TABLET. PO SCH (09:45)
--- NOTE | 2016-12-10 10:17 | PDOC ---
PULMONARY PROGRESS NOTES Subjective sob improved, has occ cough, leg pain, no runny nose. Vitals Vital Signs Date Time Temp Pulse Resp B/P (MAP) Pulse Ox O2 Delivery O2 Flow Rate FiO2 12/10/16 09:34 87 182/71 12/10/16 07:28 98 Nasal Cannula 2.0 12/10/16 03:59 98.3 18 98.3 ROS: No Nausea, No Chest Pain General: Alert, Oriented X4 Lungs: Crackles Cardiovascular: S1, S2 Abdomen: Soft, Non-tender Neuro Exam: Alert, Oriented Extremities: Other (edema) Skin: Warm Labs Laboratory Tests Test 12/09/16 07:30 12/09/16 07:55 12/09/16 13:45 12/09/16 21:10 White Blood Count 7.0 x10^3/uL (4.0-11.0) Red Blood Count 2.95 x10^6/uL (3.50-5.40) Hemoglobin 10.1 g/dL (12.0-15.5) Hematocrit 32.4 % (36.0-47.0) Mean Corpuscular Volume 110 fL (79-100) Mean Corpuscular Hemoglobin 34 pg (25-35) Mean Corpuscular Hemoglobin Concent 31 g/dL (31-37) Red Cell Distribution Width 16.1 % (11.5-14.5) Platelet Count 226 x10^3/uL (140-400) Neutrophils (%) (Auto) 78 % (31-73) Lymphocytes (%) (Auto) 10 % (24-48) Monocytes (%) (Auto) 10 % (0-9) Eosinophils (%) (Auto) 3 % (0-3) Basophils (%) (Auto) 1 % (0-3) Neutrophils # (Auto) 5.4 x10^3uL (1.8-7.7) Lymphocytes # (Auto) 0.7 x10^3/uL (1.0-4.8) Monocytes # (Auto) 0.7 x10^3/uL (0.0-1.1) Eosinophils # (Auto) 0.2 x10^3/uL (0.0-0.7) Basophils # (Auto) 0.0 x10^3/uL (0.0-0.2) Sodium Level 142 mmol/L (136-145) Potassium Level 5.2 mmol/L (3.5-5.1) Chloride Level 105 mmol/L (98-107) Carbon Dioxide Level 33 mmol/L (21-32) Anion Gap 4 (6-14) Blood Urea Nitrogen 48 mg/dL (7-20) Creatinine 2.2 mg/dL (0.6-1.0) Estimated GFR (Cockcroft-Gault) 21.9 Glucose Level 116 mg/dL (70-99) Lactic Acid Level 0.7 mmol/L (0.4-2.0) Calcium Level 8.8 mg/dL (8.5-10.1) Magnesium Level 2.2 mg/dL (1.8-2.4) Total Bilirubin 0.3 mg/dL (0.2-1.0) Direct Bilirubin 0.2 mg/dL (0.0-0.2) Aspartate Amino Transf (AST/SGOT) 38 U/L (15-37) Alanine Aminotransferase (ALT/SGPT) 21 U/L (14-59) Alkaline Phosphatase 84 U/L (46-116) Creatine Kinase 36 U/L (26-192) Creatine Kinase MB (Mass) 1.5 ng/mL (0.0-3.6) Creatine Kinase MB Relative Index % (0-4) Troponin I Quantitative 0.024 ng/mL (0.000-0.055) 0.027 ng/mL (0.000-0.055) 0.033 ng/mL (0.000-0.055) NA-Hbx-L-Type Natriuretic Peptide 84920 pg/mL (0-124) Total Protein 5.4 g/dL (6.4-8.2) Albumin 1.6 g/dL (3.4-5.0) Lipase 129 U/L (73-393) Thyroid Stimulating Hormone (TSH) 1.524 uIU/mL (0.358-3.74) Urine Collection Type Unknown Urine Color Yellow Urine Clarity Cloudy Urine pH 7.0 Urine Specific [place] 1.010 Urine Protein >=300 mg/dL (NEG-TRACE) Urine Glucose (UA) Negative mg/dL (NEG) Urine Ketones (Stick) Negative mg/dL (NEG) Urine Blood Small (NEG) Urine Nitrite Negative (NEG) Urine Bilirubin Negative (NEG) Urine Urobilinogen Dipstick 0.2 mg/dL (0.2 mg/dL) Urine Leukocyte Esterase Moderate (NEG) Urine RBC 1-2 /HPF (0-2) Urine WBC >40 /HPF (0-4) Urine Squamous Epithelial Cells Few /LPF Urine Bacteria Many /HPF (0-FEW) Laboratory Tests Test 12/09/16 13:45 12/09/16 21:10 Troponin I Quantitative 0.027 ng/mL (0.000-0.055) 0.033 ng/mL (0.000-0.055) Medications Active Scripts Medications Dose Route/Sig Max Daily Dose Days Date Category Vitamin D3 (Cholecalciferol (Vitamin D3)) 1,000 Unit Tablet 2 Tab PO DAILY 12/09/16 Reported Escitalopram Oxalate 10 Mg Tablet 10 Mg PO DAILY 07/03/13 Reported Zocor (Simvastatin) 20 Mg Tablet 20 Mg PO HS 04/26/13 Reported Cozaar (Losartan Potassium) 50 Mg Tablet 50 Mg PO DAILY 04/26/13 Reported Lasix (Furosemide) 20 Mg Tablet 20 Mg PO DAILY 04/26/13 Reported Hydrocodone-Apap 7.5-325 (Hydrocodone Bit/Acetaminophen) 1 Each Tablet 1 Each PO PRN Q8HRS 04/26/13 Reported Ferrous Sulfate 325 Mg Tablet 325 Mg PO BID 04/26/13 Reported Lofibra (Fenofibrate,Micronized) 134 Mg Capsule 134 Mg PO DAILY 04/26/13 Reported [Vitamin D ] 04/26/13 Reported Coreg (Carvedilol) 6.25 Mg Tablet 6.25 Mg PO BID 04/26/13 Reported Calcium (Calcium Carbonate) 600 Mg Tablet 600 Mg PO BID 04/26/13 Reported Aspir 81 (Aspirin) 81 Mg Tablet.dr 81 Mg PO DAILY 04/26/13 Reported Albuterol Sulfate Hfa Inhaler (Albuterol Sulfate) 8.5 Gm Hfa.aer.ad 8.5 Gm IH PRN Q4HRS 04/26/13 Reported Impression . IMPRESSION: 1. Dyspnea secondary to suspected acute on chronic diastolic heart failure in the patient who probably has underlying parenchymal scarring/fibrosis and cannot exclude the progression of fibrosis. 2. Underlying chronic obstructive pulmonary disease. 3. Chronic respiratory failure, on home oxygen at 2 liters. 4. Chronic lower extremity edema. 5. History of diastolic dysfunction based on prior echo. 6. Renal insufficiency. 7. debility Plan . RECOMMENDATIONS: 1. 02 titration 2. keep I<O, lasix, monitor k, cr 3. Continue empiric antibiotic 4. DuoNeb. 5. ? repeat echocardiogram. 6. cxr in am, If chest x-rays do not improve, then consider doing noncontrast CT chest to assess for fibrosis versus residual congestive heart failure. 7. DVT prophylaxis. 8. Discussed with the patient's and we will follow along with you. DMITRY FREEDMAN MD Dec 10, 2016 10:17
--- NOTE | 2016-12-10 10:27 | PDOC ---
PROGRESS NOTES Chief Complaint Chief Complaint Acute hypoxic respir failure ASSESSMENT AND PLAN: 1. CHF exacerbation: s/p IV lasix with improved respir status. cont home PO dose 2. COPD: O2 dependent. no acute issues. cont nebs, O2 3. CKD4: creat essentially at baseline. monitor with lasix IV 4. UTI: prelim with GNR >100K CFU. cont empiric cipro 5. Anemia: macrocytic, stable. awaiting B12/folate levels. did have BM bx in 05/10 with mild dyspoiesis, not meeting criteria for MDS 6. HTN/HLD: no acute issues. cont home meds History of Present Illness History of Present Illness feels much better, wants to go home Vitals Vitals Vital Signs Date Time Temp Pulse Resp B/P (MAP) Pulse Ox O2 Delivery O2 Flow Rate FiO2 12/10/16 09:34 87 182/71 12/10/16 07:28 98 Nasal Cannula 2.0 12/10/16 03:59 98.3 18 98.3 Physical Exam General: Alert, Oriented X3, Cooperative, No acute distress Heart: Regular rate Lungs: Clear Abdomen: Normal bowel sounds, No tenderness Extremities: No clubbing, No edema Skin: No rashes Labs LABS Laboratory Tests Test 12/09/16 13:45 12/09/16 21:10 Troponin I Quantitative 0.027 ng/mL (0.000-0.055) 0.033 ng/mL (0.000-0.055) CARLITO CANNON MD Dec 10, 2016 10:27
[2016-12-10 11:00] VITALS: BP 165/72
[2016-12-10 12:34] LABS: BASO % 0 % (0-3); EOS % 0 % (0-3); HEMATOCRIT 27.3 % (36.0-47.0); HEMOGLOBIN 8.7 g/dL (12.0-15.5); LYMPH # 0.5 x10^3/uL (1.0-4.8); LYMPH % 6 % (24-48); MEAN CORPUSCULAR HEMOGLOBIN 34 pg (25-35); MEAN CORPUSCULAR HGB CONC 32 g/dL (31-37); MEAN CORPUSCULAR VOLUME 107 fL (79-100); MONO % 10 % (0-9); NEUT % 84 % (31-73); PLATELET COUNT 209 x10^3/uL (140-400); RED BLOOD COUNT 2.54 x10^6/uL (3.50-5.40); RED CELL DISTRIBUTION WIDTH 15.9 % (11.5-14.5); WHITE BLOOD COUNT 8.6 x10^3/uL (4.0-11.0)
[2016-12-10 12:43] LABS: CALCIUM 8.1 mg/dL (8.5-10.1); CREATININE 2.6 mg/dL (0.6-1.0); GFR 18.1; POTASSIUM 4.5 mmol/L (3.5-5.1)
[2016-12-10 12:50] LABS: ALBUMIN 1.3 g/dL (3.4-5.0); ALBUMIN/GLOBULIN RATIO 0.4 (1.0-1.7); MAGNESIUM 2.1 mg/dL (1.8-2.4); TOTAL BILIRUBIN 0.2 mg/dL (0.2-1.0)
[2016-12-10 14:50] VITALS: BP 160/65
--- NOTE | 2016-12-10 17:04 | RAD ---
Indication: Follow-up infiltrate. Technique: Two-view chest radiograph was obtained. Comparison is from one day earlier. Findings: Vascular congestion and interstitial prominence persist but are improved from prior study. Heart is again upper limits of normal in size. There is atheromatous disease in the thoracic aorta. There is a calcified granuloma on the right. Evidence of vertebroplasties are noted. Median sternotomy wires are present. Leads overlie the patient. Impression: Slight improvement in vascular congestion and interstitial edema.
[2016-12-10 19:59] VITALS: BP 172/69
[2016-12-10] MEDS: SIMVASTATIN 20 MG TABLET PO SCH (20:34)
[2016-12-10 23:29] VITALS: BP 175/62
[2016-12-11 03:56] VITALS: BP 185/73
[2016-12-11 07:00] VITALS: BP 158/62
[2016-12-11] MEDS: IPRATRPIUM/ALBUTEROL 0.5/2.5MG 3 ML NEBU. NEB SCH ×4 (07:22→18:31)
[2016-12-11] MEDS: LOSARTAN POTASSIUM 50 MG TABLET. PO SCH (08:18)
[2016-12-11] MEDS: ESCITALOPRAM 5 MG TABLET. PO SCH (08:18)
[2016-12-11] MEDS: ASPIRIN ENTERIC COATED 81 MG TABLET.DR. PO SCH (08:18)
[2016-12-11] MEDS: CHOLECALCIFEROL (VITAMIN D3) 1,000 UNIT TABLET PO SCH (08:19)
[2016-12-11] MEDS: FENOFIBRATE,MICRONIZED 134 MG CAPSULE PO SCH (08:19)
[2016-12-11] MEDS: CARVEDILOL 6.25 MG TABLET. PO SCH ×2 (08:19→17:14)
[2016-12-11] MEDS: FUROSEMIDE 20 MG TABLET PO SCH (08:19)
[2016-12-11] MEDS: FERROUS SULFATE 325 MG TABLET. PO SCH ×2 (08:19→20:58)
[2016-12-11] MEDS: CALCIUM CARBONATE 500 MG TABLET PO SCH ×2 (08:19→17:13)
[2016-12-11] MEDS: CIPROFLOXACIN 400MG PREMIX 200 ML IV SCH ×2 (08:30→20:58)
--- NOTE | 2016-12-11 09:19 | PDOC2 ---
CONSULT Date of Consult Date of Consult DATE: 12/11/16 TIME: 09:18 Reason for Consult Reason for Consult: CKD III/ IV Referring Physician Referring Physician: Dr Arvizu Identification/Chief Complaint Chief Complaint SOB/ hypoximia Problems: Source Source: Chart review, Patient History of Present Illness Reason for Visit: as dictated Social History Quit ALCOHOL: none Drugs: None Lives: with Family Domestic Violence: Neg Current Problem List Problem List Problems Medical Problems: (1) Anemia Status: Acute (2) CHF (congestive heart failure) Status: Acute (3) COPD (chronic obstructive pulmonary disease) Status: Acute (4) Renal insufficiency Status: Acute (5) UTI (urinary tract infection) Status: Acute (6) Weakness Status: Acute Current Medications Current Medications Current Medications Aspirin (Children'S Aspirin) 324 mg 1X ONCE PO Last administered on 12/09/16 08:09; Start 12/09/16 at 08:00; Stop 12/09/16 at 08:01; Status DC Sodium Chloride (Normal Saline Flush) 10 ml QSHIFT PRN IV AFTER MEDS AND BLOOD DRAWS; Start 12/09/16 at 07:30 Methylprednisolone Sodium Succinate (SOLU-Medrol 125MG VIAL) 125 mg 1X ONCE IV Last administered on 12/09/16 08:08; Start 12/09/16 at 08:15; Stop 12/09/16 at 08:16; Status DC Albuterol/ Ipratropium (Duoneb) 3 ml 1X ONCE NEB Last administered on 08:19; Start 12/09/16 at 08:15; Stop 12/09/16 at 08:16; Status DC Albuterol/ Ipratropium (Duoneb) 3 ml 1X ONCE NEB Last administered on 08:19; Start 12/09/16 at 08:15; Stop 12/09/16 at 08:16; Status DC Albuterol/ Ipratropium (Duoneb) 3 ml 1X ONCE NEB Last administered on 08:01; Start 12/09/16 at 07:45; Stop 12/09/16 at 07:46; Status DC Ciprofloxacin Lactate 200 ml @ 200 mls/hr Q12HR IV Last administered on 08:30; Start 12/09/16 at 09:15 Furosemide (Lasix) 40 mg 1X ONCE IVP Last administered on 12/09/16 09:06; Start 12/09/16 at 09:00; Stop 12/09/16 at 09:01; Status DC Ciprofloxacin Lactate 200 ml @ 200 mls/hr 1X ONCE IV Last administered on 09:30; Start 12/09/16 at 09:30; Stop 12/09/16 at 10:29; Status DC Ondansetron HCl (Zofran) 4 mg PRN Q8HRS PRN IV NAUSEA/VOMITING; Start 12/09/16 at 08:45; Stop 12/10/16 at 08:44; Status DC Acetaminophen (Tylenol) 650 mg PRN Q4HRS PRN PO FEVER; Start 12/09/16 at 08:45 ; Stop 12/10/16 at 08:44; Status DC Nitroglycerin (Nitrostat) 0.4 mg PRN Q5MIN PRN SL CHEST PAIN; Start 12/09/16 at 08:45; Stop 12/10/16 at 08:44; Status DC Albuterol/ Ipratropium (Duoneb) 3 ml RTQID NEB Last administered on 12/10/16 11:31; Start 12/09/16 at 12:00; Stop 12/10/16 at 11:59; Status DC Albuterol Sulfate (Ventolin Hfa) 2 puff PRN Q4HRS IH ; Start 12/10/16 at 01:00 ; Status UNV Aspirin (Ecotrin) 81 mg DAILY PO Last administered on 12/11/16 08:18; Start at 09:00 Carvedilol (Coreg) 6.25 mg BIDWMEALS PO Last administered on 12/11/16 08:19; Start 12/10/16 at 08:00 Vitamin D (Vitamin D3) 2,000 unit DAILY PO Last administered on 12/11/16 08:19 ; Start 12/10/16 at 09:00 Fenofibrate (Lofibra) 134 mg DAILY PO Last administered on 12/11/16 08:19; Start 12/10/16 at 09:00 Ferrous Sulfate (Feosol) 325 mg BID PO Last administered on 12/11/16 08:19; Start 12/10/16 at 09:00 Furosemide (Lasix) 20 mg DAILY PO Last administered on 12/11/16 08:19; Start 12/10/16 at 09:00 Acetaminophen/ Hydrocodone Bitart (Lortab 7.5/325) 1 tab PRN Q8HRS PRN PO SEVERE PAIN; Start 12/10/16 at 01:00 Losartan Potassium (Cozaar) 50 mg DAILY PO Last administered on 12/11/16 08:18 ; Start 12/10/16 at 09:00 Simvastatin (Zocor) 20 mg HS PO Last administered on 12/10/16 20:34; Start at 21:00 Calcium Carbonate/ Glycine (Oscal) 500 mg BIDWMEALS PO Last administered on 08:19; Start 12/10/16 at 08:00 Escitalopram Oxalate (Lexapro) 10 mg DAILY PO Last administered on 12/11/16 08 :18; Start 12/10/16 at 09:00 Albuterol Sulfate (Ventolin Neb Soln) 2.5 mg PRN Q4HRS PRN NEB SHORTNESS OF BREATH; Start 12/10/16 at 01:15 Albuterol/ Ipratropium (Duoneb) 3 ml RTQID NEB Last administered on 12/11/16 07:22; Start 12/10/16 at 16:30 Active Scripts Active Reported Vitamin D3 (Cholecalciferol (Vitamin D3)) 1,000 Unit Tablet 2 Tab PO DAILY Escitalopram Oxalate 10 Mg Tablet 10 Mg PO DAILY Zocor (Simvastatin) 20 Mg Tablet 20 Mg PO HS Cozaar (Losartan Potassium) 50 Mg Tablet 50 Mg PO DAILY Lasix (Furosemide) 20 Mg Tablet 20 Mg PO DAILY Hydrocodone-Apap 7.5-325 (Hydrocodone Bit/Acetaminophen) 1 Each Tablet 1 Each PO PRN Q8HRS Ferrous Sulfate 325 Mg Tablet 325 Mg PO BID Lofibra (Fenofibrate,Micronized) 134 Mg Capsule 134 Mg PO DAILY [Vitamin D ] Coreg (Carvedilol) 6.25 Mg Tablet 6.25 Mg PO BID Calcium (Calcium Carbonate) 600 Mg Tablet 600 Mg PO BID Aspir 81 (Aspirin) 81 Mg Tablet.dr 81 Mg PO DAILY Albuterol Sulfate Hfa Inhaler (Albuterol Sulfate) 8.5 Gm Hfa.aer.ad 8.5 Gm IH PRN Q4HRS Allergies Allergies: Coded Allergies: quinine (Verified Allergy, Severe, Anaphylaxis, 04/26/13) ROS Review of System GEN: no Fevers no Chills EYES: no new Visual Complaints ENT: no EN Drainage no Hearing deficiets CVS: no Orthopnea no CP RESP: + SOB occ CARRERA GI: no Nausea no Vomiting : no Dysuria no Urgency HEME: no easy bruising n Palp Ly Nodes NEURO on Focal Weakness on Sz PSYCH: on Suicidal Ideation on Depression SKIN: no Rashes ENDO: no Polyuria or Polydipsia no Hot/Cold Intolerance MU SK: no Arthraigia no Myalgia Physical Exam Physical Exam General Appearance: Awake Alert Oriented x 3 In no Distress Eyes: VIsion Unchanged Conjunctiva Normal EN: No EN Drainage Mucous Memb. moist - poor dentition Neck: no JVD min JVP Supple no Thyromegaly CVS: S1 S2 + Murmur No Gallop No Rub tr Edema Resp: rare Rales no Rhonchi no Acc. Muscle use GI: BAS +ve NO Bruit Non Tender Non Distended : no CVA tenderness; no Suprapubic Tenderness SKIN: no Rashes Breast Exam deferred Mu.Sk: Adequate ROM no Muscle Atrophy Heme: Unable to palpate Obvious LAD no Splenomegaly NEURO: Good Strength and Tone Cranial Nerves II - XII grossly intact Psych: no Depressed no Active hallucination Vital Signs Vital Signs Date Time Temp Pulse Resp B/P (MAP) Pulse Ox O2 Delivery O2 Flow Rate FiO2 12/11/16 08:19 78 185/73 12/11/16 07:27 100 Nasal Cannula 2.0 12/11/16 07:00 97.4 22 97.4 Assessment & Plan CKD IV: ? ready to start HD. check 24-hr Urine. She has anorexia for quite a while. Current FLuid and E-lyte status does not necessitate emergent need for Dialysis. Will re-evaluate for Dialysis in am Sev Hypo Alb - check 24-hr Urine for TP - suspect nephrotic fl overload - lasix gtt Anemia: Epogen as needed. check Iron. Transfuse with next HD as needed. HTN: (cannot r/o Renovascular etio) Current BP meds reviewed. See orders for changes. Bone & Mineral: follow phos (although she is not eating much) - add binders if needed Discussed Plan of Care and prognosis etc. at length with family () Labs Labs Laboratory Tests Test 12/09/16 13:45 12/09/16 21:10 12/10/16 12:25 Troponin I Quantitative 0.027 ng/mL (0.000-0.055) 0.033 ng/mL (0.000-0.055) White Blood Count 8.6 x10^3/uL (4.0-11.0) Red Blood Count 2.54 x10^6/uL (3.50-5.40) Hemoglobin 8.7 g/dL (12.0-15.5) Hematocrit 27.3 % (36.0-47.0) Mean Corpuscular Volume 107 fL (79-100) Mean Corpuscular Hemoglobin 34 pg (25-35) Mean Corpuscular Hemoglobin Concent 32 g/dL (31-37) Red Cell Distribution Width 15.9 % (11.5-14.5) Platelet Count 209 x10^3/uL (140-400) Neutrophils (%) (Auto) 84 % (31-73) Lymphocytes (%) (Auto) 6 % (24-48) Monocytes (%) (Auto) 10 % (0-9) Eosinophils (%) (Auto) 0 % (0-3) Basophils (%) (Auto) 0 % (0-3) Neutrophils # (Auto) 7.2 x10^3uL (1.8-7.7) Lymphocytes # (Auto) 0.5 x10^3/uL (1.0-4.8) Monocytes # (Auto) 0.8 x10^3/uL (0.0-1.1) Eosinophils # (Auto) 0.0 x10^3/uL (0.0-0.7) Basophils # (Auto) 0.0 x10^3/uL (0.0-0.2) Sodium Level 136 mmol/L (136-145) Potassium Level 4.5 mmol/L (3.5-5.1) Chloride Level 99 mmol/L (98-107) Carbon Dioxide Level 32 mmol/L (21-32) Anion Gap 5 (6-14) Blood Urea Nitrogen 57 mg/dL (7-20) Creatinine 2.6 mg/dL (0.6-1.0) Estimated GFR (Cockcroft-Gault) 18.1 BUN/Creatinine Ratio 22 (6-20) Glucose Level 114 mg/dL (70-99) Calcium Level 8.1 mg/dL (8.5-10.1) Magnesium Level 2.1 mg/dL (1.8-2.4) Total Bilirubin 0.2 mg/dL (0.2-1.0) Aspartate Amino Transf (AST/SGOT) 36 U/L (15-37) Alanine Aminotransferase (ALT/SGPT) 17 U/L (14-59) Alkaline Phosphatase 68 U/L (46-116) Total Protein 5.0 g/dL (6.4-8.2) Albumin 1.3 g/dL (3.4-5.0) Albumin/Globulin Ratio 0.4 (1.0-1.7) Laboratory Tests Test 12/10/16 12:25 White Blood Count 8.6 x10^3/uL (4.0-11.0) Red Blood Count 2.54 x10^6/uL (3.50-5.40) Hemoglobin 8.7 g/dL (12.0-15.5) Hematocrit 27.3 % (36.0-47.0) Mean Corpuscular Volume 107 fL (79-100) Mean Corpuscular Hemoglobin 34 pg (25-35) Mean Corpuscular Hemoglobin Concent 32 g/dL (31-37) Red Cell Distribution Width 15.9 % (11.5-14.5) Platelet Count 209 x10^3/uL (140-400) Neutrophils (%) (Auto) 84 % (31-73) Lymphocytes (%) (Auto) 6 % (24-48) Monocytes (%) (Auto) 10 % (0-9) Eosinophils (%) (Auto) 0 % (0-3) Basophils (%) (Auto) 0 % (0-3) Neutrophils # (Auto) 7.2 x10^3uL (1.8-7.7) Lymphocytes # (Auto) 0.5 x10^3/uL (1.0-4.8) Monocytes # (Auto) 0.8 x10^3/uL (0.0-1.1) Eosinophils # (Auto) 0.0 x10^3/uL (0.0-0.7) Basophils # (Auto) 0.0 x10^3/uL (0.0-0.2) Sodium Level 136 mmol/L (136-145) Potassium Level 4.5 mmol/L (3.5-5.1) Chloride Level 99 mmol/L (98-107) Carbon Dioxide Level 32 mmol/L (21-32) Anion Gap 5 (6-14) Blood Urea Nitrogen 57 mg/dL (7-20) Creatinine 2.6 mg/dL (0.6-1.0) Estimated GFR (Cockcroft-Gault) 18.1 BUN/Creatinine Ratio 22 (6-20) Glucose Level 114 mg/dL (70-99) Calcium Level 8.1 mg/dL (8.5-10.1) Magnesium Level 2.1 mg/dL (1.8-2.4) Total Bilirubin 0.2 mg/dL (0.2-1.0) Aspartate Amino Transf (AST/SGOT) 36 U/L (15-37) Alanine Aminotransferase (ALT/SGPT) 17 U/L (14-59) Alkaline Phosphatase 68 U/L (46-116) Total Protein 5.0 g/dL (6.4-8.2) Albumin 1.3 g/dL (3.4-5.0) Albumin/Globulin Ratio 0.4 (1.0-1.7) Images Images US from 07/2016: Kidneys:Both kidneys are somewhat small. Cortical thinning is noted associated with both. There are cysts seen associated with both kidneys the largest on the right measuring almost 4 cm and the largest on the left approaching 3 cm CXR from 12/10/2016: Findings: Vascular congestion and interstitial prominence persist but are improved from prior study. Heart is again upper limits of normal in size. There is atheromatous disease in the thoracic aorta. There is a calcified granuloma on the right. Evidence of vertebroplasties are noted. Median sternotomy wires are present. Leads overlie the patient. Impression: Slight improvement in vascular congestion and interstitial edema. BASILIA HAMEED MD Dec 11, 2016 09:19
[2016-12-11] MEDS ORDERED: MAGNESIUM SULFATE 2GM 50 ML IV PRN (09:30)
--- NOTE | 2016-12-11 09:45 | PDOC ---
PULMONARY PROGRESS NOTES Subjective sob improved, has cough. leg pain is better, no runny nose. Vitals Vital Signs Date Time Temp Pulse Resp B/P (MAP) Pulse Ox O2 Delivery O2 Flow Rate FiO2 12/11/16 08:19 78 185/73 12/11/16 07:27 100 Nasal Cannula 2.0 12/11/16 07:00 97.4 22 97.4 ROS: No Nausea, No Chest Pain General: Alert, Oriented X4 Lungs: Crackles Cardiovascular: S1, S2 Abdomen: Soft, Non-tender Neuro Exam: Alert, Oriented Extremities: Other (edema) Skin: Warm Labs Laboratory Tests Test 12/09/16 13:45 12/09/16 21:10 12/10/16 12:25 Troponin I Quantitative 0.027 ng/mL (0.000-0.055) 0.033 ng/mL (0.000-0.055) White Blood Count 8.6 x10^3/uL (4.0-11.0) Red Blood Count 2.54 x10^6/uL (3.50-5.40) Hemoglobin 8.7 g/dL (12.0-15.5) Hematocrit 27.3 % (36.0-47.0) Mean Corpuscular Volume 107 fL (79-100) Mean Corpuscular Hemoglobin 34 pg (25-35) Mean Corpuscular Hemoglobin Concent 32 g/dL (31-37) Red Cell Distribution Width 15.9 % (11.5-14.5) Platelet Count 209 x10^3/uL (140-400) Neutrophils (%) (Auto) 84 % (31-73) Lymphocytes (%) (Auto) 6 % (24-48) Monocytes (%) (Auto) 10 % (0-9) Eosinophils (%) (Auto) 0 % (0-3) Basophils (%) (Auto) 0 % (0-3) Neutrophils # (Auto) 7.2 x10^3uL (1.8-7.7) Lymphocytes # (Auto) 0.5 x10^3/uL (1.0-4.8) Monocytes # (Auto) 0.8 x10^3/uL (0.0-1.1) Eosinophils # (Auto) 0.0 x10^3/uL (0.0-0.7) Basophils # (Auto) 0.0 x10^3/uL (0.0-0.2) Sodium Level 136 mmol/L (136-145) Potassium Level 4.5 mmol/L (3.5-5.1) Chloride Level 99 mmol/L (98-107) Carbon Dioxide Level 32 mmol/L (21-32) Anion Gap 5 (6-14) Blood Urea Nitrogen 57 mg/dL (7-20) Creatinine 2.6 mg/dL (0.6-1.0) Estimated GFR (Cockcroft-Gault) 18.1 BUN/Creatinine Ratio 22 (6-20) Glucose Level 114 mg/dL (70-99) Calcium Level 8.1 mg/dL (8.5-10.1) Magnesium Level 2.1 mg/dL (1.8-2.4) Total Bilirubin 0.2 mg/dL (0.2-1.0) Aspartate Amino Transf (AST/SGOT) 36 U/L (15-37) Alanine Aminotransferase (ALT/SGPT) 17 U/L (14-59) Alkaline Phosphatase 68 U/L (46-116) Total Protein 5.0 g/dL (6.4-8.2) Albumin 1.3 g/dL (3.4-5.0) Albumin/Globulin Ratio 0.4 (1.0-1.7) Laboratory Tests Test 12/10/16 12:25 White Blood Count 8.6 x10^3/uL (4.0-11.0) Red Blood Count 2.54 x10^6/uL (3.50-5.40) Hemoglobin 8.7 g/dL (12.0-15.5) Hematocrit 27.3 % (36.0-47.0) Mean Corpuscular Volume 107 fL (79-100) Mean Corpuscular Hemoglobin 34 pg (25-35) Mean Corpuscular Hemoglobin Concent 32 g/dL (31-37) Red Cell Distribution Width 15.9 % (11.5-14.5) Platelet Count 209 x10^3/uL (140-400) Neutrophils (%) (Auto) 84 % (31-73) Lymphocytes (%) (Auto) 6 % (24-48) Monocytes (%) (Auto) 10 % (0-9) Eosinophils (%) (Auto) 0 % (0-3) Basophils (%) (Auto) 0 % (0-3) Neutrophils # (Auto) 7.2 x10^3uL (1.8-7.7) Lymphocytes # (Auto) 0.5 x10^3/uL (1.0-4.8) Monocytes # (Auto) 0.8 x10^3/uL (0.0-1.1) Eosinophils # (Auto) 0.0 x10^3/uL (0.0-0.7) Basophils # (Auto) 0.0 x10^3/uL (0.0-0.2) Sodium Level 136 mmol/L (136-145) Potassium Level 4.5 mmol/L (3.5-5.1) Chloride Level 99 mmol/L (98-107) Carbon Dioxide Level 32 mmol/L (21-32) Anion Gap 5 (6-14) Blood Urea Nitrogen 57 mg/dL (7-20) Creatinine 2.6 mg/dL (0.6-1.0) Estimated GFR (Cockcroft-Gault) 18.1 BUN/Creatinine Ratio 22 (6-20) Glucose Level 114 mg/dL (70-99) Calcium Level 8.1 mg/dL (8.5-10.1) Magnesium Level 2.1 mg/dL (1.8-2.4) Total Bilirubin 0.2 mg/dL (0.2-1.0) Aspartate Amino Transf (AST/SGOT) 36 U/L (15-37) Alanine Aminotransferase (ALT/SGPT) 17 U/L (14-59) Alkaline Phosphatase 68 U/L (46-116) Total Protein 5.0 g/dL (6.4-8.2) Albumin 1.3 g/dL (3.4-5.0) Albumin/Globulin Ratio 0.4 (1.0-1.7) Medications Active Scripts Medications Dose Route/Sig Max Daily Dose Days Date Category Vitamin D3 (Cholecalciferol (Vitamin D3)) 1,000 Unit Tablet 2 Tab PO DAILY 12/09/16 Reported Escitalopram Oxalate 10 Mg Tablet 10 Mg PO DAILY 07/03/13 Reported Zocor (Simvastatin) 20 Mg Tablet 20 Mg PO HS 04/26/13 Reported Cozaar (Losartan Potassium) 50 Mg Tablet 50 Mg PO DAILY 04/26/13 Reported Lasix (Furosemide) 20 Mg Tablet 20 Mg PO DAILY 04/26/13 Reported Hydrocodone-Apap 7.5-325 (Hydrocodone Bit/Acetaminophen) 1 Each Tablet 1 Each PO PRN Q8HRS 04/26/13 Reported Ferrous Sulfate 325 Mg Tablet 325 Mg PO BID 04/26/13 Reported Lofibra (Fenofibrate,Micronized) 134 Mg Capsule 134 Mg PO DAILY 04/26/13 Reported [Vitamin D ] 04/26/13 Reported Coreg (Carvedilol) 6.25 Mg Tablet 6.25 Mg PO BID 04/26/13 Reported Calcium (Calcium Carbonate) 600 Mg Tablet 600 Mg PO BID 04/26/13 Reported Aspir 81 (Aspirin) 81 Mg Tablet.dr 81 Mg PO DAILY 04/26/13 Reported Albuterol Sulfate Hfa Inhaler (Albuterol Sulfate) 8.5 Gm Hfa.aer.ad 8.5 Gm IH PRN Q4HRS 04/26/13 Reported Comments cxr reviewed, Slight improvement in vascular congestion and interstitial edema. Impression . IMPRESSION: 1. Dyspnea secondary to suspected acute on chronic diastolic heart failure in the patient who probably has underlying parenchymal scarring/fibrosis and cannot exclude the progression of fibrosis. 2. Underlying chronic obstructive pulmonary disease. 3. Chronic respiratory failure, on home oxygen at 2 liters. 4. Chronic lower extremity edema. 5. History of diastolic dysfunction based on prior echo. 6. Renal insufficiency. 7. debility Plan . RECOMMENDATIONS: 1. 02 titration 2. keep I<O, lasix, monitor k, cr 3. Continue empiric antibiotic 4. DuoNeb. 5. ? repeat echocardiogram. 6. cxr reviewed, showed, Slight improvement in vascular congestion and interstitial edema. 7. DVT prophylaxis. 8. Discussed with the patient's and we will follow along with you. DMITRY FREEDMAN MD Dec 11, 2016 09:45
[2016-12-11 11:00] VITALS: BP 144/60
[2016-12-11 11:48] LABS: % SAT IRON 35 % (15-34); IRON,SERUM 55 ug/dL (50-170)
--- NOTE | 2016-12-11 13:28 | PDOC ---
PROGRESS NOTES Chief Complaint Chief Complaint Acute hypoxic respir failure ASSESSMENT AND PLAN: 1. CHF exacerbation: s/p IV lasix with improved respir status. cont home PO dose 2. COPD: O2 dependent. no acute issues. cont nebs, O2 3. CKD4: creat essentially at baseline, with min increase with lasix IV. Dr Ackerman following; appreciate input 4. UTI: prelim with GNR >100K CFU. cont empiric cipro 5. Anemia: macrocytic, stable. awaiting B12/folate levels. did have BM bx in 05/10 with mild dyspoiesis, not meeting criteria for MDS. EPO and iron supplements as per nephro 6. HTN/HLD: no acute issues. cont home meds 7. Hypoalbuminemia: prob multifactorial, mainly ?nephrotic syndrome, inflammation, malnutrition. 8. Prophylaxis: heparin SQ Vitals Vitals Vital Signs Date Time Temp Pulse Resp B/P (MAP) Pulse Ox O2 Delivery O2 Flow Rate FiO2 12/11/16 11:26 Nasal Cannula 2.0 12/11/16 11:00 97.0 60 20 144/60 (88) 98 97.0 Physical Exam General: Alert, Oriented X3, Cooperative, No acute distress Heart: Regular rate Lungs: Crackles Abdomen: Normal bowel sounds, No tenderness Extremities: No clubbing, No edema Skin: No rashes Labs LABS Laboratory Tests Test 12/11/16 10:30 12/11/16 11:18 Reticulocyte Count (auto) 3.3 % (0.5-2.5) Ferritin 902 ng/mL (8-252) Iron Level 55 ug/dL (50-170) Total Iron Binding Capacity 157 ug/dL (250-450) Iron Saturation 35 % (15-34) CARLITO CANNON MD Dec 11, 2016 13:28
[2016-12-11 14:06] LABS: CALCIUM 8.4 mg/dL (8.5-10.1); CREATININE 2.5 mg/dL (0.6-1.0); GFR 18.9; POTASSIUM 4.7 mmol/L (3.5-5.1)
[2016-12-11 15:00] VITALS: BP 136/64
--- NOTE | 2016-12-11 16:36 | CONS ---
DATE OF CONSULTATION: 12/11/2016 PRIMARY PHYSICIAN: Dr. Arvizu. REASON FOR CONSULTATION: Chronic renal insufficiency. HISTORY OF PRESENT ILLNESS: The patient is a 71-year-old female followed by Dr. Retana. She was in Dr. Retana's office and was noted to be increasingly short of breath with ____ crackles. She was sent to the ER for evaluation. In the ER, she underwent a chest x-ray, which showed significant fluid overload. She was also evaluated by Pulmonary. A repeat chest x-ray continues to show pulmonary vascular congestion. The patient is known to have CKD stage 4 for quite a while. She was in Dr. Retana's office to discuss initiation of dialysis. Office records are not available to me. She is noted to have currently a GFR of 18 mL per minute. PAST MEDICAL HISTORY: Significant for longstanding hypertension, COPD, emphysema, hearing issues, coronary artery disease status post CABG with sternal infection, dyslipidemia, emphysema, CKD stage 4, urinary incontinence, osteoarthritis, right knee replacement surgery, previous history of smoking, history of bone marrow biopsy without known diagnosis of cancer, per se. SOCIAL HISTORY: , lives with family. FAMILY HISTORY: Negative for known kidney problems. For rest of the details, see electronic record. BASILIA HAMEED MD DR: KINJAL/kvng JOB#: [id number] / [id number]
[2016-12-11 19:00] VITALS: BP 172/55
[2016-12-11] MEDS: SIMVASTATIN 20 MG TABLET PO SCH (20:58)
[2016-12-11] MEDS ORDERED: DARBEPOETIN ALFA 60 MCG/0.3 ML DISP.SYRIN. SQ SCH (21:00)
[2016-12-11] MEDS: HEPARIN PF for SUB-Q USE 5,000 UNIT/0.5 ML VIAL. SQ SCH (21:08)
[2016-12-11] MEDS: FUROSEMIDE INJ 100 MG in IV NORMAL SALINE 100ML 100 ML IV PRN (22:39)
[2016-12-11 22:58] VITALS: BP 147/46
[2016-12-12] MEDS: HYDROcodone/APAP 7.5/325MG 1 TAB TABLET PO PRN ×2 (02:55→15:11)
[2016-12-12 03:00] VITALS: BP 178/46
[2016-12-12 06:55] LABS: ALBUMIN 1.2 g/dL (3.4-5.0); CALCIUM 8.3 mg/dL (8.5-10.1); CREATININE 2.5 mg/dL (0.6-1.0); GFR 18.9; PHOSPHORUS 4.5 mg/dL (2.6-4.7); POTASSIUM 4.3 mmol/L (3.5-5.1)
[2016-12-12 07:00] VITALS: BP 159/42
[2016-12-12] MEDS: IPRATRPIUM/ALBUTEROL 0.5/2.5MG 3 ML NEBU. NEB SCH ×4 (07:30→19:29)
[2016-12-12] MEDS: FENOFIBRATE,MICRONIZED 134 MG CAPSULE PO SCH (08:53)
[2016-12-12] MEDS: CHOLECALCIFEROL (VITAMIN D3) 1,000 UNIT TABLET PO SCH (08:53)
[2016-12-12] MEDS: CALCIUM CARBONATE 500 MG TABLET PO SCH ×2 (08:53→17:22)
[2016-12-12] MEDS: ESCITALOPRAM 5 MG TABLET. PO SCH (08:53)
[2016-12-12] MEDS: LOSARTAN POTASSIUM 50 MG TABLET. PO SCH (08:53)
[2016-12-12] MEDS: FUROSEMIDE 20 MG TABLET PO SCH (08:54)
[2016-12-12] MEDS: ASPIRIN ENTERIC COATED 81 MG TABLET.DR. PO SCH (08:54)
[2016-12-12] MEDS: CARVEDILOL 6.25 MG TABLET. PO SCH ×2 (08:54→17:22)
[2016-12-12] MEDS: FERROUS SULFATE 325 MG TABLET. PO SCH ×2 (08:54→21:18)
[2016-12-12] MEDS: CIPROFLOXACIN 400MG PREMIX 200 ML IV SCH (08:55)
[2016-12-12] MEDS: HEPARIN PF for SUB-Q USE 5,000 UNIT/0.5 ML VIAL. SQ SCH ×2 (09:15→21:24)
[2016-12-12 10:00] VITALS: BP 158/36
--- NOTE | 2016-12-12 10:29 | PDOC ---
PULMONARY PROGRESS NOTES Subjective sob improved, has cough. leg pain is better, Vitals Vital Signs Date Time Temp Pulse Resp B/P (MAP) Pulse Ox O2 Delivery O2 Flow Rate FiO2 12/12/16 08:54 70 159/42 12/12/16 07:30 99 Nasal Cannula 2.0 12/12/16 07:00 97.7 18 97.7 ROS: No Nausea, No Chest Pain General: Alert Lungs: Crackles (post ) Cardiovascular: S1, S2 Abdomen: Soft, Non-tender Neuro Exam: Alert, Oriented Extremities: Other (edema) Skin: Warm Labs Laboratory Tests Test 12/10/16 12:25 12/11/16 10:30 12/11/16 11:18 12/12/16 05:45 White Blood Count 8.6 x10^3/uL (4.0-11.0) Red Blood Count 2.54 x10^6/uL (3.50-5.40) Hemoglobin 8.7 g/dL (12.0-15.5) 8.6 g/dL (12.0-15.5) Hematocrit 27.3 % (36.0-47.0) Mean Corpuscular Volume 107 fL (79-100) Mean Corpuscular Hemoglobin 34 pg (25-35) Mean Corpuscular Hemoglobin Concent 32 g/dL (31-37) Red Cell Distribution Width 15.9 % (11.5-14.5) Platelet Count 209 x10^3/uL (140-400) Neutrophils (%) (Auto) 84 % (31-73) Lymphocytes (%) (Auto) 6 % (24-48) Monocytes (%) (Auto) 10 % (0-9) Eosinophils (%) (Auto) 0 % (0-3) Basophils (%) (Auto) 0 % (0-3) Neutrophils # (Auto) 7.2 x10^3uL (1.8-7.7) Lymphocytes # (Auto) 0.5 x10^3/uL (1.0-4.8) Monocytes # (Auto) 0.8 x10^3/uL (0.0-1.1) Eosinophils # (Auto) 0.0 x10^3/uL (0.0-0.7) Basophils # (Auto) 0.0 x10^3/uL (0.0-0.2) Sodium Level 136 mmol/L (136-145) 134 mmol/L (136-145) 133 mmol/L (136-145) Potassium Level 4.5 mmol/L (3.5-5.1) 4.7 mmol/L (3.5-5.1) 4.3 mmol/L (3.5-5.1) Chloride Level 99 mmol/L (98-107) 98 mmol/L (98-107) 97 mmol/L (98-107) Carbon Dioxide Level 32 mmol/L (21-32) 32 mmol/L (21-32) 34 mmol/L (21-32) Anion Gap 5 (6-14) 4 (6-14) 2 (6-14) Blood Urea Nitrogen 57 mg/dL (7-20) 58 mg/dL (7-20) 56 mg/dL (7-20) Creatinine 2.6 mg/dL (0.6-1.0) 2.5 mg/dL (0.6-1.0) 2.5 mg/dL (0.6-1.0) Estimated GFR (Cockcroft-Gault) 18.1 18.9 18.9 BUN/Creatinine Ratio 22 (6-20) Glucose Level 114 mg/dL (70-99) 108 mg/dL (70-99) 95 mg/dL (70-99) Calcium Level 8.1 mg/dL (8.5-10.1) 8.4 mg/dL (8.5-10.1) 8.3 mg/dL (8.5-10.1) Magnesium Level 2.1 mg/dL (1.8-2.4) 1.8 mg/dL (1.8-2.4) Total Bilirubin 0.2 mg/dL (0.2-1.0) Aspartate Amino Transf (AST/SGOT) 36 U/L (15-37) Alanine Aminotransferase (ALT/SGPT) 17 U/L (14-59) Alkaline Phosphatase 68 U/L (46-116) Total Protein 5.0 g/dL (6.4-8.2) Albumin 1.3 g/dL (3.4-5.0) 1.2 g/dL (3.4-5.0) Albumin/Globulin Ratio 0.4 (1.0-1.7) Reticulocyte Count (auto) 3.3 % (0.5-2.5) Ferritin 902 ng/mL (8-252) Iron Level 55 ug/dL (50-170) Total Iron Binding Capacity 157 ug/dL (250-450) Iron Saturation 35 % (15-34) Phosphorus Level 4.5 mg/dL (2.6-4.7) Laboratory Tests Test 12/11/16 10:30 12/11/16 11:18 12/12/16 05:45 Reticulocyte Count (auto) 3.3 % (0.5-2.5) Ferritin 902 ng/mL (8-252) Sodium Level 134 mmol/L (136-145) 133 mmol/L (136-145) Potassium Level 4.7 mmol/L (3.5-5.1) 4.3 mmol/L (3.5-5.1) Chloride Level 98 mmol/L (98-107) 97 mmol/L (98-107) Carbon Dioxide Level 32 mmol/L (21-32) 34 mmol/L (21-32) Anion Gap 4 (6-14) 2 (6-14) Blood Urea Nitrogen 58 mg/dL (7-20) 56 mg/dL (7-20) Creatinine 2.5 mg/dL (0.6-1.0) 2.5 mg/dL (0.6-1.0) Estimated GFR (Cockcroft-Gault) 18.9 18.9 Glucose Level 108 mg/dL (70-99) 95 mg/dL (70-99) Calcium Level 8.4 mg/dL (8.5-10.1) 8.3 mg/dL (8.5-10.1) Iron Level 55 ug/dL (50-170) Total Iron Binding Capacity 157 ug/dL (250-450) Iron Saturation 35 % (15-34) Hemoglobin 8.6 g/dL (12.0-15.5) Phosphorus Level 4.5 mg/dL (2.6-4.7) Magnesium Level 1.8 mg/dL (1.8-2.4) Albumin 1.2 g/dL (3.4-5.0) Medications Active Scripts Medications Dose Route/Sig Max Daily Dose Days Date Category Vitamin D3 (Cholecalciferol (Vitamin D3)) 1,000 Unit Tablet 2 Tab PO DAILY 12/09/16 Reported Escitalopram Oxalate 10 Mg Tablet 10 Mg PO DAILY 07/03/13 Reported Zocor (Simvastatin) 20 Mg Tablet 20 Mg PO HS 04/26/13 Reported Cozaar (Losartan Potassium) 50 Mg Tablet 50 Mg PO DAILY 04/26/13 Reported Lasix (Furosemide) 20 Mg Tablet 20 Mg PO DAILY 04/26/13 Reported Hydrocodone-Apap 7.5-325 (Hydrocodone Bit/Acetaminophen) 1 Each Tablet 1 Each PO PRN Q8HRS 04/26/13 Reported Ferrous Sulfate 325 Mg Tablet 325 Mg PO BID 04/26/13 Reported Lofibra (Fenofibrate,Micronized) 134 Mg Capsule 134 Mg PO DAILY 04/26/13 Reported [Vitamin D ] 04/26/13 Reported Coreg (Carvedilol) 6.25 Mg Tablet 6.25 Mg PO BID 04/26/13 Reported Calcium (Calcium Carbonate) 600 Mg Tablet 600 Mg PO BID 04/26/13 Reported Aspir 81 (Aspirin) 81 Mg Tablet.dr 81 Mg PO DAILY 04/26/13 Reported Albuterol Sulfate Hfa Inhaler (Albuterol Sulfate) 8.5 Gm Hfa.aer.ad 8.5 Gm IH PRN Q4HRS 04/26/13 Reported Comments cxr reviewed, Slight improvement in vascular congestion and interstitial edema. Impression . 1. Dyspnea secondary to suspected acute on chronic diastolic heart failure in the patient who probably has underlying parenchymal scarring/fibrosis and cannot exclude the progression of fibrosis. 2. Underlying chronic obstructive pulmonary disease. 3. Chronic respiratory failure, on home oxygen at 2 liters. 4. Chronic lower extremity edema. 5. History of diastolic dysfunction based on prior echo. 6. Renal insufficiency. 7. debility Plan . 1. 02 titration 2. keep I<O, lasix, monitor k, cr 3. Continue empiric antibiotic 4. DuoNeb. 5. repeat echocardiogram. 6. cxr reviewed, showed, Slight improvement in vascular congestion and interstitial edema. will get ct chest to better assess fibrosis progression 7. DVT prophylaxis. 8. Discussed with the patient's and we will follow along with you. BEVERLY KNIGHT MD Dec 12, 2016 10:29
[2016-12-12 10:36] LABS: FOLATE 9.4 ng/ml (3.2-20.0)
--- NOTE | 2016-12-12 11:40 | PDOC ---
Renal-Progress Notes Subjective Notes Notes LESS SOB History of Present Illness Hx of present illness IMPROVED Vitals Vitals Vital Signs Date Time Temp Pulse Resp B/P (MAP) Pulse Ox O2 Delivery O2 Flow Rate FiO2 12/12/16 10:00 97.7 69 18 158/36 (76) 99 Room Air 97.7 12/12/16 07:30 2.0 Weight Weight [ ] I.O. Intake and Output Intake and Output 12/12/16 07:00 Intake Total 1200 ml Output Total 1100 ml Balance 100 ml Intake Oral 1200 ml Output Urine Total 1100 ml Labs Labs Laboratory Tests Test 12/12/16 05:45 Hemoglobin 8.6 g/dL (12.0-15.5) Sodium Level 133 mmol/L (136-145) Potassium Level 4.3 mmol/L (3.5-5.1) Chloride Level 97 mmol/L (98-107) Carbon Dioxide Level 34 mmol/L (21-32) Anion Gap 2 (6-14) Blood Urea Nitrogen 56 mg/dL (7-20) Creatinine 2.5 mg/dL (0.6-1.0) Estimated GFR (Cockcroft-Gault) 18.9 Glucose Level 95 mg/dL (70-99) Calcium Level 8.3 mg/dL (8.5-10.1) Phosphorus Level 4.5 mg/dL (2.6-4.7) Magnesium Level 1.8 mg/dL (1.8-2.4) Albumin 1.2 g/dL (3.4-5.0) Micro Micro Microbiology 12/09/16 Blood Culture - Preliminary, Resulted NO GROWTH AFTER 3 DAYS 12/09/16 Urine Culture - Final, Complete 12/09/16 Urine Culture Result 1 (WIN) - Final, Complete 12/09/16 Antimicrobic Susceptibility - Final, Complete Review of Systems Constitutional: yes: weakness, alert, oriented Ears/Nose/Throat: Yes: no symptom reported Eyes: Yes: no symptom reported Pulmonary: Yes dyspnea Cardiovascular: Yes no symptom reported, Yes edema Genitourinary: Yes: no symptom reported Musculoskeletal: Yes: muscle stiffness, muscle atrophy Skin: Yes color change Psychiatric/Neurological: Yes: no symptom reported Endocrine: Yes: no symptom reported Physical Exam General Appearance: no apparent distress Skin: warm Respiratory: decreased breath sounds Heart: S1S2 Extremities: pulses present, edema Neurology: alert Assessment Assessment IMP CKD STAGE 4 - POSSIBLE NEW ESRD-CR STABLE AT 2.5 CHF VOLUME OVERLOAD HYPERVOLEMIA COPD-O2 DEPENDENT ANEMIA PLAN CONT WITH LASIX GTT 24 HR URINE COLLECTION PENDING CONT ARB LABS IN AM UPDATED FAMILY CONCETTA MARTIN MD Dec 12, 2016 11:40
[2016-12-12 13:16] LABS: HEP A IGM ABDY Negative (Negative); HEP B SURFACE ABDY Non Reactive (.)
--- NOTE | 2016-12-12 13:32 | RAD ---
CT of the chest without contrast, 12/12/2016: History: Congestive heart failure/fibrosis Noncontrast scans were obtained and compared to a study from 08/26/2015. Small bilateral pleural effusions have developed, right greater than left. There is mild underlying atelectasis posteriorly in the right lower and middle lobes. Emphysematous changes are present, particularly in the upper lobes. There are scattered interstitial and groundglass opacities as well as thicker linear parenchymal opacities in both lungs compatible with scarring. There is mild bronchiectasis in both upper lobes. Some of the upper lobe lucencies demonstrate discrete beckett compatible with areas of honeycombing. Similar chronic-appearing parenchymal opacities were present on the previous study. There is a coarse calcification in the right upper lobe. There is extensive calcific plaquing of the thoracic aorta and its branches without evidence of aneurysm. Coronary artery calcifications are present. The heart is generally enlarged. There has been a previous median sternotomy. Small mediastinal lymph nodes are seen without evidence of pathologic enlargement. A small volume of ascites is now evident in the upper abdomen. Bilateral renal cysts are again noted. There are multiple thoracic vertebral compression formation with vertebroplasty changes at 3 levels. The findings appear unchanged since 08/26/2015. IMPRESSION: 1. Emphysema with pulmonary fibrosis, bronchiectasis and honeycombing, similar to that seen on 08/26/2015. 2. Small bilateral pleural effusions have developed, right greater than left, with mild associated atelectasis in the right lower and middle lobes. 3. A small volume of ascites has developed. 4. Extensive calcific plaquing of the aorta and coronary arteries. PQRS Compliance Statement: One or more of the following individualized dose reduction techniques were utilized for this examination: 1. Automated exposure control 2. Adjustment of the mA and/or kV according to patient size 3. Use of iterative reconstruction technique
--- NOTE | 2016-12-12 13:35 | PDOC ---
PROGRESS NOTES Chief Complaint Chief Complaint Acute hypoxic respir failure 1. CHF exacerbation: 2. COPD: 3. CKD4: 4. UTI: 5. Anemia: 6. HTN/HLD: 7. Hypoalbuminemia: 8. Prophylaxis: History of Present Illness History of Present Illness Pt resting comfortably in bed. Previous SOB & cough not noted Vitals Vitals Vital Signs Date Time Temp Pulse Resp B/P (MAP) Pulse Ox O2 Delivery O2 Flow Rate FiO2 12/12/16 11:38 99 Nasal Cannula 2.0 12/12/16 10:00 97.7 69 18 158/36 (76) 97.7 Physical Exam General: Alert, Oriented X3, No acute distress Heart: Regular rate, No murmurs Lungs: Clear, Crackles (post ), Other (No respiratory distress) Abdomen: Normal bowel sounds, No tenderness Extremities: No clubbing, No edema Skin: No rashes, No significant lesion Labs LABS Laboratory Tests Test 12/12/16 05:45 Hemoglobin 8.6 g/dL (12.0-15.5) Sodium Level 133 mmol/L (136-145) Potassium Level 4.3 mmol/L (3.5-5.1) Chloride Level 97 mmol/L (98-107) Carbon Dioxide Level 34 mmol/L (21-32) Anion Gap 2 (6-14) Blood Urea Nitrogen 56 mg/dL (7-20) Creatinine 2.5 mg/dL (0.6-1.0) Estimated GFR (Cockcroft-Gault) 18.9 Glucose Level 95 mg/dL (70-99) Calcium Level 8.3 mg/dL (8.5-10.1) Phosphorus Level 4.5 mg/dL (2.6-4.7) Magnesium Level 1.8 mg/dL (1.8-2.4) Albumin 1.2 g/dL (3.4-5.0) Review of Systems Review of Systems Complains of weakness Resolution of dyspnea Assessment and Plan Assessmemt and Plan Problems Medical Problems: (1) Anemia: Awaiting B12/folate levels. Continue to monitor. EPO and iron supplements as per nephro Status: Acute (2) CHF (congestive heart failure) s/p IV lasix with improved respiratory status. Cont home PO dose Status: Acute (3) COPD (chronic obstructive pulmonary disease) Cont nebs, O2 Status: Acute (4) Renal insufficiency Dr Ackerman following. Continue w/ lasix IV Status: Acute (5) UTI (urinary tract infection): Cont empiric cipro Status: Acute 6. HTN: continue home meds 7. Hypoalbuminemia: prob multifactorial Continue Lasix, Abx & PTOT Possible discharge if ok w/ subspecialist Problems: Comment Review of Relevant I have reviewed the following items scott (where applicable) has been applied. Labs Laboratory Tests Test 12/11/16 10:30 12/11/16 11:18 12/12/16 05:45 Reticulocyte Count (auto) 3.3 % (0.5-2.5) Ferritin 902 ng/mL (8-252) Sodium Level 134 mmol/L (136-145) 133 mmol/L (136-145) Potassium Level 4.7 mmol/L (3.5-5.1) 4.3 mmol/L (3.5-5.1) Chloride Level 98 mmol/L (98-107) 97 mmol/L (98-107) Carbon Dioxide Level 32 mmol/L (21-32) 34 mmol/L (21-32) Anion Gap 4 (6-14) 2 (6-14) Blood Urea Nitrogen 58 mg/dL (7-20) 56 mg/dL (7-20) Creatinine 2.5 mg/dL (0.6-1.0) 2.5 mg/dL (0.6-1.0) Estimated GFR (Cockcroft-Gault) 18.9 18.9 Glucose Level 108 mg/dL (70-99) 95 mg/dL (70-99) Calcium Level 8.4 mg/dL (8.5-10.1) 8.3 mg/dL (8.5-10.1) Iron Level 55 ug/dL (50-170) Total Iron Binding Capacity 157 ug/dL (250-450) Iron Saturation 35 % (15-34) Hepatitis A IgM Antibody Negative (Negative) Hepatitis B Surface Antigen Negative (Negative) Hepatitis B Surface Antibody Non reactive (.) Hepatitis B Core Total Antibody Negative (Negative) Hepatitis B Core IgM Antibody Negative (Negative) Hepatitis C Antibody <0.1 s/co ratio Hemoglobin 8.6 g/dL (12.0-15.5) Phosphorus Level 4.5 mg/dL (2.6-4.7) Magnesium Level 1.8 mg/dL (1.8-2.4) Albumin 1.2 g/dL (3.4-5.0) Laboratory Tests Test 12/12/16 05:45 Hemoglobin 8.6 g/dL (12.0-15.5) Sodium Level 133 mmol/L (136-145) Potassium Level 4.3 mmol/L (3.5-5.1) Chloride Level 97 mmol/L (98-107) Carbon Dioxide Level 34 mmol/L (21-32) Anion Gap 2 (6-14) Blood Urea Nitrogen 56 mg/dL (7-20) Creatinine 2.5 mg/dL (0.6-1.0) Estimated GFR (Cockcroft-Gault) 18.9 Glucose Level 95 mg/dL (70-99) Calcium Level 8.3 mg/dL (8.5-10.1) Phosphorus Level 4.5 mg/dL (2.6-4.7) Magnesium Level 1.8 mg/dL (1.8-2.4) Albumin 1.2 g/dL (3.4-5.0) Microbiology 12/09/16 Blood Culture - Preliminary, Resulted NO GROWTH AFTER 3 DAYS 12/09/16 Urine Culture - Final, Complete 12/09/16 Urine Culture Result 1 (WIN) - Final, Complete 12/09/16 Antimicrobic Susceptibility - Final, Complete Medications Current Medications Aspirin (Children'S Aspirin) 324 mg 1X ONCE PO Last administered on 12/09/16 08:09; Start 12/09/16 at 08:00; Stop 12/09/16 at 08:01; Status DC Sodium Chloride (Normal Saline Flush) 10 ml QSHIFT PRN IV AFTER MEDS AND BLOOD DRAWS; Start 12/09/16 at 07:30 Methylprednisolone Sodium Succinate (SOLU-Medrol 125MG VIAL) 125 mg 1X ONCE IV Last administered on 12/09/16 08:08; Start 12/09/16 at 08:15; Stop 12/09/16 at 08:16; Status DC Albuterol/ Ipratropium (Duoneb) 3 ml 1X ONCE NEB Last administered on 08:19; Start 12/09/16 at 08:15; Stop 12/09/16 at 08:16; Status DC Albuterol/ Ipratropium (Duoneb) 3 ml 1X ONCE NEB Last administered on 08:19; Start 12/09/16 at 08:15; Stop 12/09/16 at 08:16; Status DC Albuterol/ Ipratropium (Duoneb) 3 ml 1X ONCE NEB Last administered on 08:01; Start 12/09/16 at 07:45; Stop 12/09/16 at 07:46; Status DC Ciprofloxacin Lactate 200 ml @ 200 mls/hr Q12HR IV Last administered on 08:55; Start 12/09/16 at 09:15 Furosemide (Lasix) 40 mg 1X ONCE IVP Last administered on 12/09/16 09:06; Start 12/09/16 at 09:00; Stop 12/09/16 at 09:01; Status DC Ciprofloxacin Lactate 200 ml @ 200 mls/hr 1X ONCE IV Last administered on 09:30; Start 12/09/16 at 09:30; Stop 12/09/16 at 10:29; Status DC Ondansetron HCl (Zofran) 4 mg PRN Q8HRS PRN IV NAUSEA/VOMITING; Start 12/09/16 at 08:45; Stop 12/10/16 at 08:44; Status DC Acetaminophen (Tylenol) 650 mg PRN Q4HRS PRN PO FEVER; Start 12/09/16 at 08:45 ; Stop 12/10/16 at 08:44; Status DC Nitroglycerin (Nitrostat) 0.4 mg PRN Q5MIN PRN SL CHEST PAIN; Start 12/09/16 at 08:45; Stop 12/10/16 at 08:44; Status DC Albuterol/ Ipratropium (Duoneb) 3 ml RTQID NEB Last administered on 12/10/16 11:31; Start 12/09/16 at 12:00; Stop 12/10/16 at 11:59; Status DC Albuterol Sulfate (Ventolin Hfa) 2 puff PRN Q4HRS IH ; Start 12/10/16 at 01:00 ; Status UNV Aspirin (Ecotrin) 81 mg DAILY PO Last administered on 12/12/16 08:54; Start at 09:00 Carvedilol (Coreg) 6.25 mg BIDWMEALS PO Last administered on 12/12/16 08:54; Start 12/10/16 at 08:00 Vitamin D (Vitamin D3) 2,000 unit DAILY PO Last administered on 12/12/16 08:53 ; Start 12/10/16 at 09:00 Fenofibrate (Lofibra) 134 mg DAILY PO Last administered on 12/12/16 08:53; Start 12/10/16 at 09:00 Ferrous Sulfate (Feosol) 325 mg BID PO Last administered on 12/12/16 08:54; Start 12/10/16 at 09:00 Furosemide (Lasix) 20 mg DAILY PO Last administered on 12/11/16 08:19; Start 12/10/16 at 09:00 Acetaminophen/ Hydrocodone Bitart (Lortab 7.5/325) 1 tab PRN Q8HRS PRN PO SEVERE PAIN Last administered on 12/12/16 02:55; Start 12/10/16 at 01:00 Losartan Potassium (Cozaar) 50 mg DAILY PO Last administered on 12/12/16 08:53 ; Start 12/10/16 at 09:00 Simvastatin (Zocor) 20 mg HS PO Last administered on 12/11/16 20:58; Start at 21:00 Calcium Carbonate/ Glycine (Oscal) 500 mg BIDWMEALS PO Last administered on 08:53; Start 12/10/16 at 08:00 Escitalopram Oxalate (Lexapro) 10 mg DAILY PO Last administered on 12/12/16 08 :53; Start 12/10/16 at 09:00 Albuterol Sulfate (Ventolin Neb Soln) 2.5 mg PRN Q4HRS PRN NEB SHORTNESS OF BREATH; Start 12/10/16 at 01:15 Albuterol/ Ipratropium (Duoneb) 3 ml RTQID NEB Last administered on 12/12/16 11:38; Start 12/10/16 at 16:30 Magnesium Sulfate/ Dextrose 50 ml @ 25 mls/hr PRN DAILY PRN IV for Mag < 1.7 on am labs; Start 12/11/16 at 09:30 Furosemide 100 mg/ Sodium Chloride 100 ml @ 0 mls/hr CONT PRN IV SEE I/O RECORD Last administered on 12/11/16 22:39; Start 12/11/16 at 10:00 Darbepoetin Rm (Aranesp) 60 mcg WEEKLYHS SQ Last administered on 12/11/16 20 :58; Start 12/11/16 at 21:00 Heparin Sodium (Porcine) (Heparin Sq) 5,000 unit BID SQ Last administered on 09:15; Start 12/11/16 at 21:00 Active Scripts Active Reported Vitamin D3 (Cholecalciferol (Vitamin D3)) 1,000 Unit Tablet 2 Tab PO DAILY Escitalopram Oxalate 10 Mg Tablet 10 Mg PO DAILY Zocor (Simvastatin) 20 Mg Tablet 20 Mg PO HS Cozaar (Losartan Potassium) 50 Mg Tablet 50 Mg PO DAILY Lasix (Furosemide) 20 Mg Tablet 20 Mg PO DAILY Hydrocodone-Apap 7.5-325 (Hydrocodone Bit/Acetaminophen) 1 Each Tablet 1 Each PO PRN Q8HRS Ferrous Sulfate 325 Mg Tablet 325 Mg PO BID Lofibra (Fenofibrate,Micronized) 134 Mg Capsule 134 Mg PO DAILY [Vitamin D ] Coreg (Carvedilol) 6.25 Mg Tablet 6.25 Mg PO BID Calcium (Calcium Carbonate) 600 Mg Tablet 600 Mg PO BID Aspir 81 (Aspirin) 81 Mg Tablet.dr 81 Mg PO DAILY Albuterol Sulfate Hfa Inhaler (Albuterol Sulfate) 8.5 Gm Hfa.aer.ad 8.5 Gm IH PRN Q4HRS Vitals/I & O Vital Sign - Last 24 Hours 12/11/16 12/11/16 12/11/16 12/11/16 15:00 15:02 17:14 18:32 Temp 97.4 97.4 Pulse 66 66 Resp 18 B/P (MAP) 136/64 (88) 136/64 Pulse Ox 96 O2 Delivery Nasal Cannula Nasal Cannula O2 Flow Rate 2.0 2.0 12/11/16 12/11/16 12/11/16 12/12/16 19:00 20:00 22:58 02:55 Temp 98.0 97.5 98.0 97.5 Pulse 72 67 Resp 18 18 17 B/P (MAP) 172/55 (94) 147/46 (79) Pulse Ox 100 99 99 O2 Delivery Room Air Nasal Cannula Room Air Nasal Cannula O2 Flow Rate 2.0 2.0 12/12/16 12/12/16 12/12/16 12/12/16 03:00 04:03 07:00 07:30 Temp 97.7 97.7 97.7 97.7 Pulse 70 70 Resp 18 16 18 B/P (MAP) 178/46 (90) 159/42 (81) Pulse Ox 98 98 99 99 O2 Delivery Room Air Nasal Cannula Room Air Nasal Cannula O2 Flow Rate 2.0 2.0 12/12/16 12/12/16 12/12/16 12/12/16 08:00 08:53 08:54 10:00 Temp 97.7 97.7 Pulse 70 70 69 Resp 18 B/P (MAP) 159/42 159/42 158/36 (76) Pulse Ox 99 O2 Delivery Nasal Cannula Room Air O2 Flow Rate 2.0 12/12/16 11:38 Pulse Ox 99 O2 Delivery Nasal Cannula O2 Flow Rate 2.0 Intake and Output 12/11/16 12/11/16 12/12/16 15:00 23:00 07:00 Intake Total 480 ml 720 ml Output Total 400 ml 700 ml Balance 480 ml 320 ml -700 ml EDEL EMEK III DO Dec 12, 2016 13:35
[2016-12-12 15:04] VITALS: BP 130/41
[2016-12-12 17:13] LABS: PTH INTACT 18 pg/mL (15-65)
--- NOTE | 2016-12-12 17:47 | CARD ---
APPROVED REPORT EXAM: Two-dimensional and M-mode echocardiogram with Doppler and color Doppler. Other Information Quality : GoodHR: 75bpm Rhythm : NSR INDICATION Congestive Heart Failure 2D DIMENSIONS RVDd2.5 (2.9-3.5cm)Left Atrium(2D)4.4 (1.6-4.0cm) IVSd1.4 (0.7-1.1cm)Aortic Root(2D)3.4 (2.0-3.7cm) LVDd3.8 (3.9-5.9cm)LVOT Diameter2.0 (1.8-2.4cm) PWd1.3 (0.7-1.1cm)LVDs2.3 (2.5-4.0cm) FS (%) 38.5 %SV42.6 ml LVEF(%)69.5 (>50%) Aortic Valve AoV Peak Everett.151.7cm/sAoV VTI34.3cm AO Peak GR.9.2mmHgLVOT Peak [place]rett.99.1cm/s AO Mean GR.4mmHgAVA (VMAX)2.06cm2 Mitral Valve MV E Yxkqgkzv27.8cm/sMV E Peak Gr.7mmHg MV DECEL [id number] A Lgtkpxyd433.2cm/s MV E Mean Gr.2mmHgE/A Ratio0.6 MV A [id number] Pulmonary Vein S1 Nuezbvyi01.9cm/sD2 Gyvcxiar40.7cm/s PVa [id number] LEFT VENTRICLE The left ventricle is normal size. There is moderate concentric left ventricular hypertrophy. The lef t ventricular systolic function is normal. The Ejection Fraction is 65-70%. There is normal LV segmen patricia wall motion. Transmitral Doppler flow pattern is Grade I-abnormal relaxation pattern. RIGHT VENTRICLE The right ventricle is normal size. There is normal right ventricular wall thickness. The right ventr icular systolic function is normal. ATRIA The left atrium is moderately dilated. The right atrium size is normal. The interatrial septum is int act with no evidence for an atrial septal defect or patent foramen ovale as noted on 2-D or Doppler i maging. AORTIC VALVE The aortic valve is not well visualized but appears mildly calcified and opens adequately. Doppler an d Color Flow revealed no significant aortic regurgitation. There is no significant aortic valvular st enosis. MITRAL VALVE Mitral annular calcification is moderate. The mitral valve leaflets are thickened. There is no eviden ce of mitral valve prolapse. There is no mitral valve stenosis. Doppler and Color Flow revealed no mi tral valve regurgitation noted. TRICUSPID VALVE Doppler and Color Flow revealed no tricuspid valve regurgitation noted. Unable to determine pulmonary artery pressure at exam time. PULMONIC VALVE The pulmonic valve is not visualized, unable to assess. GREAT VESSELS The aortic root is normal in size. The ascending aorta is normal in size. The pulmonary artery is not visualized, unable to assess. The IVC is normal in size and collapses >50% with inspiration. PERICARDIAL EFFUSION There is no evidence of significant pericardial effusion. Critical Notification Critical Value: No <Conclusion> The left ventricular systolic function is normal. The Ejection Fraction is 65-70%. There is normal LV segmental wall motion. Transmitral Doppler flow pattern is Grade I-abnormal relaxation pattern. The left atrium is moderately dilated. There is no evidence of significant pericardial effusion.
[2016-12-12 19:00] VITALS: BP 148/56
[2016-12-12] MEDS: SIMVASTATIN 20 MG TABLET PO SCH (21:20)
[2016-12-12] MEDS: FUROSEMIDE INJ 100 MG in IV NORMAL SALINE 100ML 100 ML IV PRN (22:07)
[2016-12-12 22:09] LABS: TOTAL SERUM CREATININE 2.47 mg/dL (0.57-1.00); TOTAL URINE CREATININE 22.2 mg/dL (Not Estab.)
[2016-12-12 22:50] VITALS: BP 170/68
[2016-12-13] MEDS: HYDROcodone/APAP 7.5/325MG 1 TAB TABLET PO PRN ×3 (00:42→21:30)
[2016-12-13 02:43] VITALS: BP 150/62
[2016-12-13 06:49] LABS: BASO % 0 % (0-3); EOS % 7 % (0-3); HEMATOCRIT 30.5 % (36.0-47.0); HEMOGLOBIN 9.7 g/dL (12.0-15.5); LYMPH # 0.9 x10^3/uL (1.0-4.8); LYMPH % 14 % (24-48); MEAN CORPUSCULAR HEMOGLOBIN 34 pg (25-35); MEAN CORPUSCULAR HGB CONC 32 g/dL (31-37); MEAN CORPUSCULAR VOLUME 107 fL (79-100); MONO % 12 % (0-9); NEUT % 66 % (31-73); PLATELET COUNT 165 x10^3/uL (140-400); RED BLOOD COUNT 2.84 x10^6/uL (3.50-5.40); RED CELL DISTRIBUTION WIDTH 15.7 % (11.5-14.5)
[2016-12-13 07:00] VITALS: BP 189/61
[2016-12-13 07:08] LABS: ALBUMIN 1.4 g/dL (3.4-5.0); CALCIUM 9.7 mg/dL (8.5-10.1); CREATININE 2.4 mg/dL (0.6-1.0); GFR 19.8; PHOSPHORUS 4.6 mg/dL (2.6-4.7)
[2016-12-13] MEDS: IPRATRPIUM/ALBUTEROL 0.5/2.5MG 3 ML NEBU. NEB SCH ×4 (07:26→20:03)
[2016-12-13] MEDS: CALCIUM CARBONATE 500 MG TABLET PO SCH ×2 (08:42→16:44)
[2016-12-13] MEDS: ESCITALOPRAM 5 MG TABLET. PO SCH (08:42)
[2016-12-13] MEDS: FENOFIBRATE,MICRONIZED 134 MG CAPSULE PO SCH (08:42)
[2016-12-13] MEDS: CHOLECALCIFEROL (VITAMIN D3) 1,000 UNIT TABLET PO SCH (08:42)
[2016-12-13] MEDS: LOSARTAN POTASSIUM 50 MG TABLET. PO SCH (08:42)
[2016-12-13] MEDS: FERROUS SULFATE 325 MG TABLET. PO SCH ×2 (08:43→21:22)
[2016-12-13] MEDS: FUROSEMIDE 20 MG TABLET PO SCH ×2 (08:43→13:05)
[2016-12-13] MEDS: ASPIRIN ENTERIC COATED 81 MG TABLET.DR. PO SCH (08:43)
[2016-12-13] MEDS: CARVEDILOL 6.25 MG TABLET. PO SCH ×2 (08:43→16:45)
[2016-12-13] MEDS: CIPROFLOXACIN 400MG PREMIX 200 ML IV SCH (08:44)
[2016-12-13] MEDS: HEPARIN PF for SUB-Q USE 5,000 UNIT/0.5 ML VIAL. SQ SCH ×2 (09:00→21:22)
--- NOTE | 2016-12-13 09:43 | PDOC ---
PULMONARY PROGRESS NOTES Subjective sob improved, has cough. leg pain is better, Vitals Vital Signs Date Time Temp Pulse Resp B/P (MAP) Pulse Ox O2 Delivery O2 Flow Rate FiO2 12/13/16 08:43 78 189/61 12/13/16 08:00 Nasal Cannula 2.0 12/13/16 07:29 99 12/13/16 07:00 97.5 16 97.5 ROS: No Nausea, No Chest Pain General: Alert, No acute distress Lungs: Other (decrease bs) Cardiovascular: S1, S2 Abdomen: Soft, Non-tender Neuro Exam: Alert, Oriented Extremities: Other (edema) Skin: Warm Labs Laboratory Tests Test 12/11/16 10:30 12/11/16 11:18 12/11/16 11:50 12/12/16 05:45 Reticulocyte Count (auto) 3.3 % (0.5-2.5) Ferritin 902 ng/mL (8-252) Sodium Level 134 mmol/L (136-145) 133 mmol/L (136-145) Potassium Level 4.7 mmol/L (3.5-5.1) 4.3 mmol/L (3.5-5.1) Chloride Level 98 mmol/L (98-107) 97 mmol/L (98-107) Carbon Dioxide Level 32 mmol/L (21-32) 34 mmol/L (21-32) Anion Gap 4 (6-14) 2 (6-14) Blood Urea Nitrogen 58 mg/dL (7-20) 56 mg/dL (7-20) Creatinine 2.5 mg/dL (0.6-1.0) 2.47 mg/dL (0.57-1.00) 2.5 mg/dL (0.6-1.0) Estimated GFR (Non- 20 (>59) 19 (>59) Estimated GFR (Cockcroft-Gault) 18.9 18.9 Glucose Level 108 mg/dL (70-99) 95 mg/dL (70-99) Calcium Level 8.4 mg/dL (8.5-10.1) 8.3 mg/dL (8.5-10.1) Iron Level 55 ug/dL (50-170) Total Iron Binding Capacity 157 ug/dL (250-450) Iron Saturation 35 % (15-34) EGFR 23 (>59) 22 (>59) PTH (Intact) Specimen Description Comment (.) Parathyroid Hormone (Intact) 18 pg/mL (15-65) Calcium (PTH Intact) 8.0 mg/dL (8.7-10.3) Creatinine (PTH Intact) 2.33 mg/dL (0.57-1.00) Phosphorus (PTH Intact) 4.5 mg/dL (2.5-4.5) Hepatitis A IgM Antibody Negative (Negative) Hepatitis B Surface Antigen Negative (Negative) Hepatitis B Surface Antibody Non reactive (.) Hepatitis B Core Total Antibody Negative (Negative) Hepatitis B Core IgM Antibody Negative (Negative) Hepatitis C Antibody <0.1 s/co ratio Urine Creatinine 24 Hour 400 mg/24 hr (800-1800) Creatinine Clearance 24 Hour 11 mL/min (88-128) Hemoglobin 8.6 g/dL (12.0-15.5) Phosphorus Level 4.5 mg/dL (2.6-4.7) Magnesium Level 1.8 mg/dL (1.8-2.4) Albumin 1.2 g/dL (3.4-5.0) Test 12/12/16 11:50 12/13/16 06:05 Urine Protein 179.3 mg/dL (Not Estab.) Urine Protein 24 Hr Calculated 3227 mg/24 hr (30-150) White Blood Count 6.0 x10^3/uL (4.0-11.0) Red Blood Count 2.84 x10^6/uL (3.50-5.40) Hemoglobin 9.7 g/dL (12.0-15.5) Hematocrit 30.5 % (36.0-47.0) Mean Corpuscular Volume 107 fL (79-100) Mean Corpuscular Hemoglobin 34 pg (25-35) Mean Corpuscular Hemoglobin Concent 32 g/dL (31-37) Red Cell Distribution Width 15.7 % (11.5-14.5) Platelet Count 165 x10^3/uL (140-400) Neutrophils (%) (Auto) 66 % (31-73) Lymphocytes (%) (Auto) 14 % (24-48) Monocytes (%) (Auto) 12 % (0-9) Eosinophils (%) (Auto) 7 % (0-3) Basophils (%) (Auto) 0 % (0-3) Neutrophils # (Auto) 3.9 x10^3uL (1.8-7.7) Lymphocytes # (Auto) 0.9 x10^3/uL (1.0-4.8) Monocytes # (Auto) 0.7 x10^3/uL (0.0-1.1) Eosinophils # (Auto) 0.4 x10^3/uL (0.0-0.7) Basophils # (Auto) 0.0 x10^3/uL (0.0-0.2) Sodium Level 132 mmol/L (136-145) Potassium Level 4.0 mmol/L (3.5-5.1) Chloride Level 96 mmol/L (98-107) Carbon Dioxide Level 32 mmol/L (21-32) Anion Gap 4 (6-14) Blood Urea Nitrogen 56 mg/dL (7-20) Creatinine 2.4 mg/dL (0.6-1.0) Estimated GFR (Cockcroft-Gault) 19.8 Glucose Level 94 mg/dL (70-99) Calcium Level 9.7 mg/dL (8.5-10.1) Phosphorus Level 4.6 mg/dL (2.6-4.7) Magnesium Level 1.9 mg/dL (1.8-2.4) Albumin 1.4 g/dL (3.4-5.0) Laboratory Tests Test 12/12/16 11:50 12/13/16 06:05 Urine Protein 179.3 mg/dL (Not Estab.) Urine Protein 24 Hr Calculated 3227 mg/24 hr (30-150) White Blood Count 6.0 x10^3/uL (4.0-11.0) Red Blood Count 2.84 x10^6/uL (3.50-5.40) Hemoglobin 9.7 g/dL (12.0-15.5) Hematocrit 30.5 % (36.0-47.0) Mean Corpuscular Volume 107 fL (79-100) Mean Corpuscular Hemoglobin 34 pg (25-35) Mean Corpuscular Hemoglobin Concent 32 g/dL (31-37) Red Cell Distribution Width 15.7 % (11.5-14.5) Platelet Count 165 x10^3/uL (140-400) Neutrophils (%) (Auto) 66 % (31-73) Lymphocytes (%) (Auto) 14 % (24-48) Monocytes (%) (Auto) 12 % (0-9) Eosinophils (%) (Auto) 7 % (0-3) Basophils (%) (Auto) 0 % (0-3) Neutrophils # (Auto) 3.9 x10^3uL (1.8-7.7) Lymphocytes # (Auto) 0.9 x10^3/uL (1.0-4.8) Monocytes # (Auto) 0.7 x10^3/uL (0.0-1.1) Eosinophils # (Auto) 0.4 x10^3/uL (0.0-0.7) Basophils # (Auto) 0.0 x10^3/uL (0.0-0.2) Sodium Level 132 mmol/L (136-145) Potassium Level 4.0 mmol/L (3.5-5.1) Chloride Level 96 mmol/L (98-107) Carbon Dioxide Level 32 mmol/L (21-32) Anion Gap 4 (6-14) Blood Urea Nitrogen 56 mg/dL (7-20) Creatinine 2.4 mg/dL (0.6-1.0) Estimated GFR (Cockcroft-Gault) 19.8 Glucose Level 94 mg/dL (70-99) Calcium Level 9.7 mg/dL (8.5-10.1) Phosphorus Level 4.6 mg/dL (2.6-4.7) Magnesium Level 1.9 mg/dL (1.8-2.4) Albumin 1.4 g/dL (3.4-5.0) Medications Active Scripts Medications Dose Route/Sig Max Daily Dose Days Date Category Vitamin D3 (Cholecalciferol (Vitamin D3)) 1,000 Unit Tablet 2 Tab PO DAILY 12/09/16 Reported Escitalopram Oxalate 10 Mg Tablet 10 Mg PO DAILY 07/03/13 Reported Zocor (Simvastatin) 20 Mg Tablet 20 Mg PO HS 04/26/13 Reported Cozaar (Losartan Potassium) 50 Mg Tablet 50 Mg PO DAILY 04/26/13 Reported Lasix (Furosemide) 20 Mg Tablet 20 Mg PO DAILY 04/26/13 Reported Hydrocodone-Apap 7.5-325 (Hydrocodone Bit/Acetaminophen) 1 Each Tablet 1 Each PO PRN Q8HRS 04/26/13 Reported Ferrous Sulfate 325 Mg Tablet 325 Mg PO BID 04/26/13 Reported Lofibra (Fenofibrate,Micronized) 134 Mg Capsule 134 Mg PO DAILY 04/26/13 Reported [Vitamin D ] 04/26/13 Reported Coreg (Carvedilol) 6.25 Mg Tablet 6.25 Mg PO BID 04/26/13 Reported Calcium (Calcium Carbonate) 600 Mg Tablet 600 Mg PO BID 04/26/13 Reported Aspir 81 (Aspirin) 81 Mg Tablet.dr 81 Mg PO DAILY 04/26/13 Reported Albuterol Sulfate Hfa Inhaler (Albuterol Sulfate) 8.5 Gm Hfa.aer.ad 8.5 Gm IH PRN Q4HRS 04/26/13 Reported Comments cxr reviewed, Slight improvement in vascular congestion and interstitial edema. Impression . 1. Dyspnea secondary to suspected acute on chronic diastolic heart failure in the patient who probably has underlying parenchymal scarring/fibrosis . ct chest 12/12 with no progression of fibrosis. 2. Underlying chronic obstructive pulmonary disease. 3. Chronic respiratory failure, on home oxygen at 2 liters. 4. Chronic lower extremity edema. 5. History of diastolic dysfunction based on echo. 6. Renal insufficiency. 7. debility Plan . 1. 02 titration 2. keep I<O, lasix, monitor k, cr 3. Continue empiric antibiotic 4. DuoNeb. 5. echocardiogram with grade I diastolic dysfunction, normal EF 6. cxr reviewed, showed, Slight improvement in vascular congestion and interstitial edema. ct chest reviewed 12/12 . no fibrosis progression, mild bronchiectasis, basal effusions/atelectasis 7. DVT prophylaxis. 8. Discussed with the patient's / clinically improving BEVERLY KNIGHT MD Dec 13, 2016 09:43
[2016-12-13 11:00] VITALS: BP 154/62
--- NOTE | 2016-12-13 11:13 | PDOC ---
Renal-Progress Notes Subjective Notes Notes FEELS WELL History of Present Illness Hx of present illness STABLE Vitals Vitals Vital Signs Date Time Temp Pulse Resp B/P (MAP) Pulse Ox O2 Delivery O2 Flow Rate FiO2 12/13/16 08:43 78 189/61 12/13/16 08:00 Nasal Cannula 2.0 12/13/16 07:29 99 12/13/16 07:00 97.5 16 97.5 Weight Weight [ ] I.O. Intake and Output Intake and Output 12/13/16 07:00 Intake Total 1550 ml Output Total 1700 ml Balance -150 ml Intake Oral 1550 ml Output Urine Total 1700 ml Labs Labs Laboratory Tests Test 12/12/16 11:50 12/13/16 06:05 Urine Protein 179.3 mg/dL (Not Estab.) Urine Protein 24 Hr Calculated 3227 mg/24 hr (30-150) White Blood Count 6.0 x10^3/uL (4.0-11.0) Red Blood Count 2.84 x10^6/uL (3.50-5.40) Hemoglobin 9.7 g/dL (12.0-15.5) Hematocrit 30.5 % (36.0-47.0) Mean Corpuscular Volume 107 fL (79-100) Mean Corpuscular Hemoglobin 34 pg (25-35) Mean Corpuscular Hemoglobin Concent 32 g/dL (31-37) Red Cell Distribution Width 15.7 % (11.5-14.5) Platelet Count 165 x10^3/uL (140-400) Neutrophils (%) (Auto) 66 % (31-73) Lymphocytes (%) (Auto) 14 % (24-48) Monocytes (%) (Auto) 12 % (0-9) Eosinophils (%) (Auto) 7 % (0-3) Basophils (%) (Auto) 0 % (0-3) Neutrophils # (Auto) 3.9 x10^3uL (1.8-7.7) Lymphocytes # (Auto) 0.9 x10^3/uL (1.0-4.8) Monocytes # (Auto) 0.7 x10^3/uL (0.0-1.1) Eosinophils # (Auto) 0.4 x10^3/uL (0.0-0.7) Basophils # (Auto) 0.0 x10^3/uL (0.0-0.2) Sodium Level 132 mmol/L (136-145) Potassium Level 4.0 mmol/L (3.5-5.1) Chloride Level 96 mmol/L (98-107) Carbon Dioxide Level 32 mmol/L (21-32) Anion Gap 4 (6-14) Blood Urea Nitrogen 56 mg/dL (7-20) Creatinine 2.4 mg/dL (0.6-1.0) Estimated GFR (Cockcroft-Gault) 19.8 Glucose Level 94 mg/dL (70-99) Calcium Level 9.7 mg/dL (8.5-10.1) Phosphorus Level 4.6 mg/dL (2.6-4.7) Magnesium Level 1.9 mg/dL (1.8-2.4) Albumin 1.4 g/dL (3.4-5.0) Micro Micro Microbiology 12/09/16 Blood Culture - Preliminary, Resulted NO GROWTH AFTER 4 DAYS 12/09/16 Urine Culture - Final, Complete 12/09/16 Urine Culture Result 1 (WIN) - Final, Complete 12/09/16 Antimicrobic Susceptibility - Final, Complete Review of Systems Constitutional: yes: weakness, alert, oriented Ears/Nose/Throat: Yes: no symptom reported Eyes: Yes: no symptom reported Pulmonary: Yes dyspnea Cardiovascular: Yes no symptom reported, Yes edema Genitourinary: Yes: no symptom reported Musculoskeletal: Yes: muscle stiffness, muscle atrophy Skin: Yes color change Psychiatric/Neurological: Yes: no symptom reported Endocrine: Yes: no symptom reported Physical Exam General Appearance: no apparent distress Skin: warm Respiratory: decreased breath sounds Heart: S1S2 Extremities: pulses present, edema Neurology: alert Assessment Assessment IMP CKD STAGE 4 - CR STABLE AT 2.4 CHF VOLUME OVERLOAD-RESOLVED HYPERVOLEMIA COPD-O2 DEPENDENT ANEMIA PLAN STOP LASIX GTT 24 HR URINE COLLECTION PENDING 24 HR RESULTS CAN BE FOLLOWED UP OP CONT ARB START PO LASIX OK TO D/C WITH OP RENAL FOLLOW UP ALREADY SET UP CONCETTA MARTIN MD Dec 13, 2016 11:13
--- NOTE | 2016-12-13 11:48 | PDOC ---
PROGRESS NOTES Chief Complaint Chief Complaint Acute hypoxic respiratory failure 1. CHF exacerbation 2. Anemia 3. UTI 4. CKD4 5. COPD 6. HTN/HLD 7. Hypoalbuminemia 8. Prophylaxis History of Present Illness History of Present Illness Anxious to go home. Pt resting comfortably while watching tv in bed. Vitals Vitals Vital Signs Date Time Temp Pulse Resp B/P (MAP) Pulse Ox O2 Delivery O2 Flow Rate FiO2 12/13/16 11:11 Nasal Cannula 2.0 12/13/16 11:00 97.6 75 16 154/62 (92) 99 97.6 Physical Exam General: Alert, Oriented X3, No acute distress Heart: Regular rate, No murmurs Lungs: Clear, Other (decrease bs) Abdomen: Normal bowel sounds, No tenderness Extremities: No clubbing, No edema Skin: No rashes, No significant lesion Labs LABS Laboratory Tests Test 12/12/16 11:50 12/13/16 06:05 Urine Protein 179.3 mg/dL (Not Estab.) Urine Protein 24 Hr Calculated 3227 mg/24 hr (30-150) White Blood Count 6.0 x10^3/uL (4.0-11.0) Red Blood Count 2.84 x10^6/uL (3.50-5.40) Hemoglobin 9.7 g/dL (12.0-15.5) Hematocrit 30.5 % (36.0-47.0) Mean Corpuscular Volume 107 fL (79-100) Mean Corpuscular Hemoglobin 34 pg (25-35) Mean Corpuscular Hemoglobin Concent 32 g/dL (31-37) Red Cell Distribution Width 15.7 % (11.5-14.5) Platelet Count 165 x10^3/uL (140-400) Neutrophils (%) (Auto) 66 % (31-73) Lymphocytes (%) (Auto) 14 % (24-48) Monocytes (%) (Auto) 12 % (0-9) Eosinophils (%) (Auto) 7 % (0-3) Basophils (%) (Auto) 0 % (0-3) Neutrophils # (Auto) 3.9 x10^3uL (1.8-7.7) Lymphocytes # (Auto) 0.9 x10^3/uL (1.0-4.8) Monocytes # (Auto) 0.7 x10^3/uL (0.0-1.1) Eosinophils # (Auto) 0.4 x10^3/uL (0.0-0.7) Basophils # (Auto) 0.0 x10^3/uL (0.0-0.2) Sodium Level 132 mmol/L (136-145) Potassium Level 4.0 mmol/L (3.5-5.1) Chloride Level 96 mmol/L (98-107) Carbon Dioxide Level 32 mmol/L (21-32) Anion Gap 4 (6-14) Blood Urea Nitrogen 56 mg/dL (7-20) Creatinine 2.4 mg/dL (0.6-1.0) Estimated GFR (Cockcroft-Gault) 19.8 Glucose Level 94 mg/dL (70-99) Calcium Level 9.7 mg/dL (8.5-10.1) Phosphorus Level 4.6 mg/dL (2.6-4.7) Magnesium Level 1.9 mg/dL (1.8-2.4) Albumin 1.4 g/dL (3.4-5.0) Review of Systems Review of Systems C/O hunger Anxious Assessment and Plan Assessmemt and Plan (1) Anemia: EPO and iron supplements as per nephro (2) CHF (congestive heart failure) s/p IV lasix with improved respiratory status. Cont home PO dose (3) COPD (chronic obstructive pulmonary disease) Cont nebs, O2 (4) Renal insufficiency Dr Ackerman following. Continue w/ lasix IV (5) UTI (urinary tract infection): Cont empiric cipro 6. HTN: continue home meds 7. Hypoalbuminemia: probably multifactorial Await echo. Possible discharge if ok w/ subspecialists Problems: Comment Review of Relevant I have reviewed the following items scott (where applicable) has been applied. Labs Laboratory Tests Test 12/11/16 11:50 12/12/16 05:45 12/12/16 11:50 12/13/16 06:05 Urine Creatinine 24 Hour 400 mg/24 hr (800-1800) Creatinine Clearance 24 Hour 11 mL/min (88-128) Creatinine 2.47 mg/dL (0.57-1.00) 2.5 mg/dL (0.6-1.0) 2.4 mg/dL (0.6-1.0) Estimated GFR (Non- 19 (>59) EGFR 22 (>59) Hemoglobin 8.6 g/dL (12.0-15.5) 9.7 g/dL (12.0-15.5) Sodium Level 133 mmol/L (136-145) 132 mmol/L (136-145) Potassium Level 4.3 mmol/L (3.5-5.1) 4.0 mmol/L (3.5-5.1) Chloride Level 97 mmol/L (98-107) 96 mmol/L (98-107) Carbon Dioxide Level 34 mmol/L (21-32) 32 mmol/L (21-32) Anion Gap 2 (6-14) 4 (6-14) Blood Urea Nitrogen 56 mg/dL (7-20) 56 mg/dL (7-20) Estimated GFR (Cockcroft-Gault) 18.9 19.8 Glucose Level 95 mg/dL (70-99) 94 mg/dL (70-99) Calcium Level 8.3 mg/dL (8.5-10.1) 9.7 mg/dL (8.5-10.1) Phosphorus Level 4.5 mg/dL (2.6-4.7) 4.6 mg/dL (2.6-4.7) Magnesium Level 1.8 mg/dL (1.8-2.4) 1.9 mg/dL (1.8-2.4) Albumin 1.2 g/dL (3.4-5.0) 1.4 g/dL (3.4-5.0) Urine Protein 179.3 mg/dL (Not Estab.) Urine Protein 24 Hr Calculated 3227 mg/24 hr (30-150) White Blood Count 6.0 x10^3/uL (4.0-11.0) Red Blood Count 2.84 x10^6/uL (3.50-5.40) Hematocrit 30.5 % (36.0-47.0) Mean Corpuscular Volume 107 fL (79-100) Mean Corpuscular Hemoglobin 34 pg (25-35) Mean Corpuscular Hemoglobin Concent 32 g/dL (31-37) Red Cell Distribution Width 15.7 % (11.5-14.5) Platelet Count 165 x10^3/uL (140-400) Neutrophils (%) (Auto) 66 % (31-73) Lymphocytes (%) (Auto) 14 % (24-48) Monocytes (%) (Auto) 12 % (0-9) Eosinophils (%) (Auto) 7 % (0-3) Basophils (%) (Auto) 0 % (0-3) Neutrophils # (Auto) 3.9 x10^3uL (1.8-7.7) Lymphocytes # (Auto) 0.9 x10^3/uL (1.0-4.8) Monocytes # (Auto) 0.7 x10^3/uL (0.0-1.1) Eosinophils # (Auto) 0.4 x10^3/uL (0.0-0.7) Basophils # (Auto) 0.0 x10^3/uL (0.0-0.2) Laboratory Tests Test 12/12/16 11:50 12/13/16 06:05 Urine Protein 179.3 mg/dL (Not Estab.) Urine Protein 24 Hr Calculated 3227 mg/24 hr (30-150) White Blood Count 6.0 x10^3/uL (4.0-11.0) Red Blood Count 2.84 x10^6/uL (3.50-5.40) Hemoglobin 9.7 g/dL (12.0-15.5) Hematocrit 30.5 % (36.0-47.0) Mean Corpuscular Volume 107 fL (79-100) Mean Corpuscular Hemoglobin 34 pg (25-35) Mean Corpuscular Hemoglobin Concent 32 g/dL (31-37) Red Cell Distribution Width 15.7 % (11.5-14.5) Platelet Count 165 x10^3/uL (140-400) Neutrophils (%) (Auto) 66 % (31-73) Lymphocytes (%) (Auto) 14 % (24-48) Monocytes (%) (Auto) 12 % (0-9) Eosinophils (%) (Auto) 7 % (0-3) Basophils (%) (Auto) 0 % (0-3) Neutrophils # (Auto) 3.9 x10^3uL (1.8-7.7) Lymphocytes # (Auto) 0.9 x10^3/uL (1.0-4.8) Monocytes # (Auto) 0.7 x10^3/uL (0.0-1.1) Eosinophils # (Auto) 0.4 x10^3/uL (0.0-0.7) Basophils # (Auto) 0.0 x10^3/uL (0.0-0.2) Sodium Level 132 mmol/L (136-145) Potassium Level 4.0 mmol/L (3.5-5.1) Chloride Level 96 mmol/L (98-107) Carbon Dioxide Level 32 mmol/L (21-32) Anion Gap 4 (6-14) Blood Urea Nitrogen 56 mg/dL (7-20) Creatinine 2.4 mg/dL (0.6-1.0) Estimated GFR (Cockcroft-Gault) 19.8 Glucose Level 94 mg/dL (70-99) Calcium Level 9.7 mg/dL (8.5-10.1) Phosphorus Level 4.6 mg/dL (2.6-4.7) Magnesium Level 1.9 mg/dL (1.8-2.4) Albumin 1.4 g/dL (3.4-5.0) Microbiology 12/09/16 Blood Culture - Preliminary, Resulted NO GROWTH AFTER 4 DAYS 12/09/16 Urine Culture - Final, Complete 12/09/16 Urine Culture Result 1 (WIN) - Final, Complete 12/09/16 Antimicrobic Susceptibility - Final, Complete Medications Current Medications Aspirin (Children'S Aspirin) 324 mg 1X ONCE PO Last administered on 12/09/16 08:09; Start 12/09/16 at 08:00; Stop 12/09/16 at 08:01; Status DC Sodium Chloride (Normal Saline Flush) 10 ml QSHIFT PRN IV AFTER MEDS AND BLOOD DRAWS; Start 12/09/16 at 07:30 Methylprednisolone Sodium Succinate (SOLU-Medrol 125MG VIAL) 125 mg 1X ONCE IV Last administered on 12/09/16 08:08; Start 12/09/16 at 08:15; Stop 12/09/16 at 08:16; Status DC Albuterol/ Ipratropium (Duoneb) 3 ml 1X ONCE NEB Last administered on 08:19; Start 12/09/16 at 08:15; Stop 12/09/16 at 08:16; Status DC Albuterol/ Ipratropium (Duoneb) 3 ml 1X ONCE NEB Last administered on 08:19; Start 12/09/16 at 08:15; Stop 12/09/16 at 08:16; Status DC Albuterol/ Ipratropium (Duoneb) 3 ml 1X ONCE NEB Last administered on 08:01; Start 12/09/16 at 07:45; Stop 12/09/16 at 07:46; Status DC Ciprofloxacin Lactate 200 ml @ 200 mls/hr Q12HR IV Last administered on 08:55; Start 12/09/16 at 09:15; Stop 12/12/16 at 14:25; Status DC Furosemide (Lasix) 40 mg 1X ONCE IVP Last administered on 12/09/16 09:06; Start 12/09/16 at 09:00; Stop 12/09/16 at 09:01; Status DC Ciprofloxacin Lactate 200 ml @ 200 mls/hr 1X ONCE IV Last administered on 09:30; Start 12/09/16 at 09:30; Stop 12/09/16 at 10:29; Status DC Ondansetron HCl (Zofran) 4 mg PRN Q8HRS PRN IV NAUSEA/VOMITING; Start 12/09/16 at 08:45; Stop 12/10/16 at 08:44; Status DC Acetaminophen (Tylenol) 650 mg PRN Q4HRS PRN PO FEVER; Start 12/09/16 at 08:45 ; Stop 12/10/16 at 08:44; Status DC Nitroglycerin (Nitrostat) 0.4 mg PRN Q5MIN PRN SL CHEST PAIN; Start 12/09/16 at 08:45; Stop 12/10/16 at 08:44; Status DC Albuterol/ Ipratropium (Duoneb) 3 ml RTQID NEB Last administered on 12/10/16 11:31; Start 12/09/16 at 12:00; Stop 12/10/16 at 11:59; Status DC Albuterol Sulfate (Ventolin Hfa) 2 puff PRN Q4HRS IH ; Start 12/10/16 at 01:00 ; Status UNV Aspirin (Ecotrin) 81 mg DAILY PO Last administered on 12/13/16 08:43; Start at 09:00 Carvedilol (Coreg) 6.25 mg BIDWMEALS PO Last administered on 12/13/16 08:43; Start 12/10/16 at 08:00 Vitamin D (Vitamin D3) 2,000 unit DAILY PO Last administered on 12/13/16 08:42 ; Start 12/10/16 at 09:00 Fenofibrate (Lofibra) 134 mg DAILY PO Last administered on 12/13/16 08:42; Start 12/10/16 at 09:00 Ferrous Sulfate (Feosol) 325 mg BID PO Last administered on 12/13/16 08:43; Start 12/10/16 at 09:00 Furosemide (Lasix) 20 mg DAILY PO Last administered on 12/11/16 08:19; Start 12/10/16 at 09:00; Stop 12/13/16 at 11:14; Status DC Acetaminophen/ Hydrocodone Bitart (Lortab 7.5/325) 1 tab PRN Q8HRS PRN PO SEVERE PAIN Last administered on 12/13/16 00:42; Start 12/10/16 at 01:00 Losartan Potassium (Cozaar) 50 mg DAILY PO Last administered on 12/13/16 08:42 ; Start 12/10/16 at 09:00 Simvastatin (Zocor) 20 mg HS PO Last administered on 12/12/16 21:20; Start at 21:00 Calcium Carbonate/ Glycine (Oscal) 500 mg BIDWMEALS PO Last administered on 08:42; Start 12/10/16 at 08:00 Escitalopram Oxalate (Lexapro) 10 mg DAILY PO Last administered on 12/13/16 08 :42; Start 12/10/16 at 09:00 Albuterol Sulfate (Ventolin Neb Soln) 2.5 mg PRN Q4HRS PRN NEB SHORTNESS OF BREATH; Start 12/10/16 at 01:15 Albuterol/ Ipratropium (Duoneb) 3 ml RTQID NEB Last administered on 12/13/16 11:10; Start 12/10/16 at 16:30 Magnesium Sulfate/ Dextrose 50 ml @ 25 mls/hr PRN DAILY PRN IV for Mag < 1.7 on am labs; Start 12/11/16 at 09:30 Furosemide 100 mg/ Sodium Chloride 100 ml @ 0 mls/hr CONT PRN IV SEE I/O RECORD Last administered on 12/12/16 22:07; Start 12/11/16 at 10:00; Stop 12/13 at 10:44; Status DC Darbepoetin Rm (Aranesp) 60 mcg WEEKLYHS SQ Last administered on 12/11/16 20 :58; Start 12/11/16 at 21:00 Heparin Sodium (Porcine) (Heparin Sq) 5,000 unit BID SQ Last administered on 09:00; Start 12/11/16 at 21:00 Furosemide (Lasix) 40 mg BID92 PO ; Start 12/13/16 at 14:00 Active Scripts Active Reported Vitamin D3 (Cholecalciferol (Vitamin D3)) 1,000 Unit Tablet 2 Tab PO DAILY Escitalopram Oxalate 10 Mg Tablet 10 Mg PO DAILY Zocor (Simvastatin) 20 Mg Tablet 20 Mg PO HS Cozaar (Losartan Potassium) 50 Mg Tablet 50 Mg PO DAILY Lasix (Furosemide) 20 Mg Tablet 20 Mg PO DAILY Hydrocodone-Apap 7.5-325 (Hydrocodone Bit/Acetaminophen) 1 Each Tablet 1 Each PO PRN Q8HRS Ferrous Sulfate 325 Mg Tablet 325 Mg PO BID Lofibra (Fenofibrate,Micronized) 134 Mg Capsule 134 Mg PO DAILY [Vitamin D ] Coreg (Carvedilol) 6.25 Mg Tablet 6.25 Mg PO BID Calcium (Calcium Carbonate) 600 Mg Tablet 600 Mg PO BID Aspir 81 (Aspirin) 81 Mg Tablet.dr 81 Mg PO DAILY Albuterol Sulfate Hfa Inhaler (Albuterol Sulfate) 8.5 Gm Hfa.aer.ad 8.5 Gm IH PRN Q4HRS Vitals/I & O Vital Sign - Last 24 Hours 12/12/16 12/12/16 12/12/16 12/12/16 15:04 15:11 16:08 16:13 Temp 97.7 97.7 Pulse 75 Resp 18 B/P (MAP) 130/41 (70) Pulse Ox 97 97 99 99 O2 Delivery Room Air Nasal Cannula Nasal Cannula Nasal Cannula O2 Flow Rate 2.0 2.0 2.0 12/12/16 12/12/16 12/12/16 12/12/16 17:22 19:00 19:29 20:00 Temp 98.1 98.1 Pulse 75 72 Resp 16 B/P (MAP) 130/41 148/56 (86) Pulse Ox 99 O2 Delivery Nasal Cannula Nasal Cannula Nasal Cannula O2 Flow Rate 2.0 2.0 12/12/16 12/13/16 12/13/16 12/13/16 22:50 00:42 02:43 07:00 Temp 98.2 97.9 97.5 98.2 97.9 97.5 Pulse 73 74 78 Resp 16 20 18 16 B/P (MAP) 170/68 (102) 150/62 (91) 189/61 (103) Pulse Ox 96 93 96 O2 Delivery Nasal Cannula Nasal Cannula Nasal Cannula Nasal Cannula O2 Flow Rate 2.0 2.0 2.0 2.0 12/13/16 12/13/16 12/13/16 12/13/16 07:29 08:00 08:42 08:43 Pulse 78 78 B/P (MAP) 189/61 189/61 Pulse Ox 99 O2 Delivery Nasal Cannula Nasal Cannula O2 Flow Rate 2.0 2.0 12/13/16 12/13/16 11:00 11:11 Temp 97.6 97.6 Pulse 75 Resp 16 B/P (MAP) 154/62 (92) Pulse Ox 99 O2 Delivery Nasal Cannula Nasal Cannula O2 Flow Rate 2.0 2.0 Intake and Output 12/12/16 12/12/16 12/13/16 15:00 23:00 07:00 Intake Total 600 ml 650 ml 300 ml Output Total 700 ml 1000 ml Balance 600 ml -50 ml -700 ml EDEL MEEK III DO Dec 13, 2016 11:48
[2016-12-13 15:00] VITALS: BP 158/54
[2016-12-13 19:00] VITALS: BP 121/79
[2016-12-13] MEDS: SIMVASTATIN 20 MG TABLET PO SCH (21:22)
[2016-12-13 22:33] VITALS: BP 134/76
[2016-12-14 07:00] VITALS: BP 175/67
[2016-12-14 07:22] LABS: BASO % 1 % (0-3); EOS % 5 % (0-3); HEMATOCRIT 28.9 % (36.0-47.0); HEMOGLOBIN 9.2 g/dL (12.0-15.5); LYMPH # 0.7 x10^3/uL (1.0-4.8); LYMPH % 15 % (24-48); MEAN CORPUSCULAR HEMOGLOBIN 34 pg (25-35); MEAN CORPUSCULAR HGB CONC 32 g/dL (31-37); MEAN CORPUSCULAR VOLUME 107 fL (79-100); MONO % 13 % (0-9); NEUT % 67 % (31-73); PLATELET COUNT 136 x10^3/uL (140-400); RED CELL DISTRIBUTION WIDTH 15.8 % (11.5-14.5); WHITE BLOOD COUNT 4.7 x10^3/uL (4.0-11.0)
[2016-12-14] MEDS: IPRATRPIUM/ALBUTEROL 0.5/2.5MG 3 ML NEBU. NEB SCH ×2 (07:25→11:08)
[2016-12-14 07:57] LABS: ALBUMIN 1.3 g/dL (3.4-5.0); CALCIUM 9.4 mg/dL (8.5-10.1); CREATININE 2.5 mg/dL (0.6-1.0); GFR 18.9; PHOSPHORUS 4.3 mg/dL (2.6-4.7); POTASSIUM 3.8 mmol/L (3.5-5.1)
[2016-12-14] MEDS: CALCIUM CARBONATE 500 MG TABLET PO SCH (08:31)
[2016-12-14] MEDS: FUROSEMIDE 20 MG TABLET PO SCH (08:31)
[2016-12-14] MEDS: FENOFIBRATE,MICRONIZED 134 MG CAPSULE PO SCH (08:31)
[2016-12-14] MEDS: CHOLECALCIFEROL (VITAMIN D3) 1,000 UNIT TABLET PO SCH (08:32)
[2016-12-14] MEDS: ASPIRIN ENTERIC COATED 81 MG TABLET.DR. PO SCH (08:32)
[2016-12-14] MEDS: FERROUS SULFATE 325 MG TABLET. PO SCH (08:32)
[2016-12-14] MEDS: CARVEDILOL 6.25 MG TABLET. PO SCH (08:33)
[2016-12-14] MEDS: LOSARTAN POTASSIUM 50 MG TABLET. PO SCH (08:33)
[2016-12-14] MEDS: ESCITALOPRAM 5 MG TABLET. PO SCH (08:34)
[2016-12-14] MEDS: CIPROFLOXACIN 400MG PREMIX 200 ML IV SCH (08:37)
[2016-12-14] MEDS: HEPARIN PF for SUB-Q USE 5,000 UNIT/0.5 ML VIAL. SQ SCH (08:49)
--- NOTE | 2016-12-14 10:33 | PDOC ---
PULMONARY PROGRESS NOTES Subjective sob improved, has occ cough. leg pain is better, Vitals Vital Signs Date Time Temp Pulse Resp B/P (MAP) Pulse Ox O2 Delivery O2 Flow Rate FiO2 12/14/16 08:33 80 134/76 12/14/16 08:22 Nasal Cannula 2.0 12/14/16 07:27 100 12/14/16 07:00 97.6 20 97.6 ROS: No Nausea, No Chest Pain General: Alert, No acute distress Lungs: Other (decrease bs) Cardiovascular: S1, S2 Abdomen: Soft, Non-tender Neuro Exam: Alert, Oriented Extremities: Other (edema) Skin: Warm Labs Laboratory Tests Test 12/12/16 11:50 12/13/16 06:05 12/14/16 03:55 Urine Protein 179.3 mg/dL (Not Estab.) Urine Protein 24 Hr Calculated 3227 mg/24 hr (30-150) White Blood Count 6.0 x10^3/uL (4.0-11.0) 4.7 x10^3/uL (4.0-11.0) Red Blood Count 2.84 x10^6/uL (3.50-5.40) 2.70 x10^6/uL (3.50-5.40) Hemoglobin 9.7 g/dL (12.0-15.5) 9.2 g/dL (12.0-15.5) Hematocrit 30.5 % (36.0-47.0) 28.9 % (36.0-47.0) Mean Corpuscular Volume 107 fL (79-100) 107 fL (79-100) Mean Corpuscular Hemoglobin 34 pg (25-35) 34 pg (25-35) Mean Corpuscular Hemoglobin Concent 32 g/dL (31-37) 32 g/dL (31-37) Red Cell Distribution Width 15.7 % (11.5-14.5) 15.8 % (11.5-14.5) Platelet Count 165 x10^3/uL (140-400) 136 x10^3/uL (140-400) Neutrophils (%) (Auto) 66 % (31-73) 67 % (31-73) Lymphocytes (%) (Auto) 14 % (24-48) 15 % (24-48) Monocytes (%) (Auto) 12 % (0-9) 13 % (0-9) Eosinophils (%) (Auto) 7 % (0-3) 5 % (0-3) Basophils (%) (Auto) 0 % (0-3) 1 % (0-3) Neutrophils # (Auto) 3.9 x10^3uL (1.8-7.7) 3.1 x10^3uL (1.8-7.7) Lymphocytes # (Auto) 0.9 x10^3/uL (1.0-4.8) 0.7 x10^3/uL (1.0-4.8) Monocytes # (Auto) 0.7 x10^3/uL (0.0-1.1) 0.6 x10^3/uL (0.0-1.1) Eosinophils # (Auto) 0.4 x10^3/uL (0.0-0.7) 0.3 x10^3/uL (0.0-0.7) Basophils # (Auto) 0.0 x10^3/uL (0.0-0.2) 0.0 x10^3/uL (0.0-0.2) Sodium Level 132 mmol/L (136-145) 132 mmol/L (136-145) Potassium Level 4.0 mmol/L (3.5-5.1) 3.8 mmol/L (3.5-5.1) Chloride Level 96 mmol/L (98-107) 94 mmol/L (98-107) Carbon Dioxide Level 32 mmol/L (21-32) 35 mmol/L (21-32) Anion Gap 4 (6-14) 3 (6-14) Blood Urea Nitrogen 56 mg/dL (7-20) 56 mg/dL (7-20) Creatinine 2.4 mg/dL (0.6-1.0) 2.5 mg/dL (0.6-1.0) Estimated GFR (Cockcroft-Gault) 19.8 18.9 Glucose Level 94 mg/dL (70-99) 108 mg/dL (70-99) Calcium Level 9.7 mg/dL (8.5-10.1) 9.4 mg/dL (8.5-10.1) Phosphorus Level 4.6 mg/dL (2.6-4.7) 4.3 mg/dL (2.6-4.7) Magnesium Level 1.9 mg/dL (1.8-2.4) 1.9 mg/dL (1.8-2.4) Albumin 1.4 g/dL (3.4-5.0) 1.3 g/dL (3.4-5.0) Laboratory Tests Test 12/14/16 03:55 White Blood Count 4.7 x10^3/uL (4.0-11.0) Red Blood Count 2.70 x10^6/uL (3.50-5.40) Hemoglobin 9.2 g/dL (12.0-15.5) Hematocrit 28.9 % (36.0-47.0) Mean Corpuscular Volume 107 fL (79-100) Mean Corpuscular Hemoglobin 34 pg (25-35) Mean Corpuscular Hemoglobin Concent 32 g/dL (31-37) Red Cell Distribution Width 15.8 % (11.5-14.5) Platelet Count 136 x10^3/uL (140-400) Neutrophils (%) (Auto) 67 % (31-73) Lymphocytes (%) (Auto) 15 % (24-48) Monocytes (%) (Auto) 13 % (0-9) Eosinophils (%) (Auto) 5 % (0-3) Basophils (%) (Auto) 1 % (0-3) Neutrophils # (Auto) 3.1 x10^3uL (1.8-7.7) Lymphocytes # (Auto) 0.7 x10^3/uL (1.0-4.8) Monocytes # (Auto) 0.6 x10^3/uL (0.0-1.1) Eosinophils # (Auto) 0.3 x10^3/uL (0.0-0.7) Basophils # (Auto) 0.0 x10^3/uL (0.0-0.2) Sodium Level 132 mmol/L (136-145) Potassium Level 3.8 mmol/L (3.5-5.1) Chloride Level 94 mmol/L (98-107) Carbon Dioxide Level 35 mmol/L (21-32) Anion Gap 3 (6-14) Blood Urea Nitrogen 56 mg/dL (7-20) Creatinine 2.5 mg/dL (0.6-1.0) Estimated GFR (Cockcroft-Gault) 18.9 Glucose Level 108 mg/dL (70-99) Calcium Level 9.4 mg/dL (8.5-10.1) Phosphorus Level 4.3 mg/dL (2.6-4.7) Magnesium Level 1.9 mg/dL (1.8-2.4) Albumin 1.3 g/dL (3.4-5.0) Medications Active Scripts Medications Dose Route/Sig Max Daily Dose Days Date Category Vitamin D3 (Cholecalciferol (Vitamin D3)) 1,000 Unit Tablet 2 Tab PO DAILY 12/09/16 Reported Escitalopram Oxalate 10 Mg Tablet 10 Mg PO DAILY 07/03/13 Reported Zocor (Simvastatin) 20 Mg Tablet 20 Mg PO HS 04/26/13 Reported Cozaar (Losartan Potassium) 50 Mg Tablet 50 Mg PO DAILY 04/26/13 Reported Lasix (Furosemide) 20 Mg Tablet 20 Mg PO DAILY 04/26/13 Reported Hydrocodone-Apap 7.5-325 (Hydrocodone Bit/Acetaminophen) 1 Each Tablet 1 Each PO PRN Q8HRS 04/26/13 Reported Ferrous Sulfate 325 Mg Tablet 325 Mg PO BID 04/26/13 Reported Lofibra (Fenofibrate,Micronized) 134 Mg Capsule 134 Mg PO DAILY 04/26/13 Reported [Vitamin D ] 04/26/13 Reported Coreg (Carvedilol) 6.25 Mg Tablet 6.25 Mg PO BID 04/26/13 Reported Calcium (Calcium Carbonate) 600 Mg Tablet 600 Mg PO BID 04/26/13 Reported Aspir 81 (Aspirin) 81 Mg Tablet.dr 81 Mg PO DAILY 04/26/13 Reported Albuterol Sulfate Hfa Inhaler (Albuterol Sulfate) 8.5 Gm Hfa.aer.ad 8.5 Gm IH PRN Q4HRS 04/26/13 Reported Comments cxr reviewed, Slight improvement in vascular congestion and interstitial edema. Impression . 1. Dyspnea secondary to suspected acute on chronic diastolic heart failure in the patient who probably has underlying parenchymal scarring/fibrosis . ct chest 12/12 with no progression of fibrosis. 2. Underlying chronic obstructive pulmonary disease. 3. Chronic respiratory failure, on home oxygen at 2 liters. 4. Chronic lower extremity edema. 5. History of diastolic dysfunction based on echo. 6. Renal insufficiency. 7. debility Plan . 1. 02 2. keep I<O, lasix, monitor k, cr 3. Continue empiric antibiotic, may change to po 4. DuoNeb. 5. echocardiogram with grade I diastolic dysfunction, normal EF 6. cxr reviewed, showed, Slight improvement in vascular congestion and interstitial edema. ct chest reviewed 12/12 . no fibrosis progression, mild bronchiectasis, basal effusions/atelectasis 7. DVT prophylaxis. 8. Discussed with the patient's / rn, pt ok to dc DMITRY FREEDMAN MD Dec 14, 2016 10:33
[2016-12-14 11:00] VITALS: BP 123/60
--- NOTE | 2016-12-14 11:43 | PDOC ---
Renal-Progress Notes Subjective Notes Notes FEELS WELL, EATING WELL History of Present Illness Hx of present illness STABLE Vitals Vitals Vital Signs Date Time Temp Pulse Resp B/P (MAP) Pulse Ox O2 Delivery O2 Flow Rate FiO2 12/14/16 11:09 Nasal Cannula 2.0 12/14/16 11:00 98.5 68 20 123/60 (81) 95 98.5 Weight Weight [ ] I.O. Intake and Output Intake and Output 12/14/16 07:00 Intake Total 1510 ml Output Total 950 ml Balance 560 ml Intake Oral 1280 ml IV Total 230 ml Output Urine Total 950 ml # Voids 5 Labs Labs Laboratory Tests Test 12/14/16 03:55 White Blood Count 4.7 x10^3/uL (4.0-11.0) Red Blood Count 2.70 x10^6/uL (3.50-5.40) Hemoglobin 9.2 g/dL (12.0-15.5) Hematocrit 28.9 % (36.0-47.0) Mean Corpuscular Volume 107 fL (79-100) Mean Corpuscular Hemoglobin 34 pg (25-35) Mean Corpuscular Hemoglobin Concent 32 g/dL (31-37) Red Cell Distribution Width 15.8 % (11.5-14.5) Platelet Count 136 x10^3/uL (140-400) Neutrophils (%) (Auto) 67 % (31-73) Lymphocytes (%) (Auto) 15 % (24-48) Monocytes (%) (Auto) 13 % (0-9) Eosinophils (%) (Auto) 5 % (0-3) Basophils (%) (Auto) 1 % (0-3) Neutrophils # (Auto) 3.1 x10^3uL (1.8-7.7) Lymphocytes # (Auto) 0.7 x10^3/uL (1.0-4.8) Monocytes # (Auto) 0.6 x10^3/uL (0.0-1.1) Eosinophils # (Auto) 0.3 x10^3/uL (0.0-0.7) Basophils # (Auto) 0.0 x10^3/uL (0.0-0.2) Sodium Level 132 mmol/L (136-145) Potassium Level 3.8 mmol/L (3.5-5.1) Chloride Level 94 mmol/L (98-107) Carbon Dioxide Level 35 mmol/L (21-32) Anion Gap 3 (6-14) Blood Urea Nitrogen 56 mg/dL (7-20) Creatinine 2.5 mg/dL (0.6-1.0) Estimated GFR (Cockcroft-Gault) 18.9 Glucose Level 108 mg/dL (70-99) Calcium Level 9.4 mg/dL (8.5-10.1) Phosphorus Level 4.3 mg/dL (2.6-4.7) Magnesium Level 1.9 mg/dL (1.8-2.4) Albumin 1.3 g/dL (3.4-5.0) Micro Micro Microbiology 12/09/16 Blood Culture - Final, Complete NO GROWTH AFTER 5 DAYS 12/09/16 Urine Culture - Final, Complete 12/09/16 Urine Culture Result 1 (WIN) - Final, Complete 12/09/16 Antimicrobic Susceptibility - Final, Complete Review of Systems Constitutional: yes: weakness, alert, oriented Ears/Nose/Throat: Yes: no symptom reported Eyes: Yes: no symptom reported Pulmonary: Yes dyspnea Cardiovascular: Yes no symptom reported, Yes edema Genitourinary: Yes: no symptom reported Musculoskeletal: Yes: muscle stiffness, muscle atrophy Skin: Yes color change Psychiatric/Neurological: Yes: no symptom reported Endocrine: Yes: no symptom reported Physical Exam General Appearance: no apparent distress Skin: warm Respiratory: decreased breath sounds Heart: S1S2 Extremities: pulses present, edema Neurology: alert Assessment Assessment IMP CKD STAGE 4 - 5- CR STABLE AT 2.5 CHF VOLUME OVERLOAD-RESOLVED HYPERVOLEMIA COPD-O2 DEPENDENT ANEMIA PLAN OFF LASIX GTT CONT TO ARB AND LASIX WILL PROB NEED TO START HD SOON OK TO D/C WITH OP RENAL FOLLOW UP ALREADY SET UP CONCETTA MARTIN MD Dec 14, 2016 11:43
[2016-12-14] MEDS ORDERED: FURO20TA3 PO (12:29)
[2016-12-14] MEDS ORDERED: CIPR500T94 PO (12:30)
[2016-12-14] MEDS ORDERED: POTA20TA82 PO (12:31)
--- NOTE | 2016-12-14 12:41 | PDOC ---
PROGRESS NOTES Chief Complaint Chief Complaint Acute hypoxic respiratory failure 1. CHF exacerbation 2. Anemia 3. UTI 4. CKD4 5. COPD 6. HTN/HLD 7. Hypoalbuminemia 8. Prophylaxis History of Present Illness History of Present Illness Pt laying in bed, talkative. She is anxious to go home Vitals Vitals Vital Signs Date Time Temp Pulse Resp B/P (MAP) Pulse Ox O2 Delivery O2 Flow Rate FiO2 12/14/16 11:09 Nasal Cannula 2.0 12/14/16 11:00 98.5 68 20 123/60 (81) 95 98.5 Physical Exam General: Alert, Oriented X3, No acute distress Heart: Regular rate, No murmurs Lungs: Other (decrease bs. No acute respiratory distress) Abdomen: Normal bowel sounds, No tenderness Extremities: No clubbing, No edema Skin: No rashes, No significant lesion Labs LABS Laboratory Tests Test 12/14/16 03:55 White Blood Count 4.7 x10^3/uL (4.0-11.0) Red Blood Count 2.70 x10^6/uL (3.50-5.40) Hemoglobin 9.2 g/dL (12.0-15.5) Hematocrit 28.9 % (36.0-47.0) Mean Corpuscular Volume 107 fL (79-100) Mean Corpuscular Hemoglobin 34 pg (25-35) Mean Corpuscular Hemoglobin Concent 32 g/dL (31-37) Red Cell Distribution Width 15.8 % (11.5-14.5) Platelet Count 136 x10^3/uL (140-400) Neutrophils (%) (Auto) 67 % (31-73) Lymphocytes (%) (Auto) 15 % (24-48) Monocytes (%) (Auto) 13 % (0-9) Eosinophils (%) (Auto) 5 % (0-3) Basophils (%) (Auto) 1 % (0-3) Neutrophils # (Auto) 3.1 x10^3uL (1.8-7.7) Lymphocytes # (Auto) 0.7 x10^3/uL (1.0-4.8) Monocytes # (Auto) 0.6 x10^3/uL (0.0-1.1) Eosinophils # (Auto) 0.3 x10^3/uL (0.0-0.7) Basophils # (Auto) 0.0 x10^3/uL (0.0-0.2) Sodium Level 132 mmol/L (136-145) Potassium Level 3.8 mmol/L (3.5-5.1) Chloride Level 94 mmol/L (98-107) Carbon Dioxide Level 35 mmol/L (21-32) Anion Gap 3 (6-14) Blood Urea Nitrogen 56 mg/dL (7-20) Creatinine 2.5 mg/dL (0.6-1.0) Estimated GFR (Cockcroft-Gault) 18.9 Glucose Level 108 mg/dL (70-99) Calcium Level 9.4 mg/dL (8.5-10.1) Phosphorus Level 4.3 mg/dL (2.6-4.7) Magnesium Level 1.9 mg/dL (1.8-2.4) Albumin 1.3 g/dL (3.4-5.0) Review of Systems Review of Systems C/o tiredness C/o hunger Assessment and Plan Assessmemt and Plan 1. Anemia: EPO & iron supplements as per nephro 2. CHF: s/p IV lasix with improved respiratory status. Cont home PO dose 3. COPD: continue nebs, O2 4. Renal insufficiency: Dr. Ackerman following. 5. UTI: monitor 6. HTN: continue home meds 7. Hypoalbuminemia: probably multifactorial Discharge home w/ home health 40mEq KCl PO x1. Follow labs tomorrow AM Problems: Comment Review of Relevant I have reviewed the following items scott (where applicable) has been applied. Labs Laboratory Tests Test 12/13/16 06:05 12/14/16 03:55 White Blood Count 6.0 x10^3/uL (4.0-11.0) 4.7 x10^3/uL (4.0-11.0) Red Blood Count 2.84 x10^6/uL (3.50-5.40) 2.70 x10^6/uL (3.50-5.40) Hemoglobin 9.7 g/dL (12.0-15.5) 9.2 g/dL (12.0-15.5) Hematocrit 30.5 % (36.0-47.0) 28.9 % (36.0-47.0) Mean Corpuscular Volume 107 fL (79-100) 107 fL (79-100) Mean Corpuscular Hemoglobin 34 pg (25-35) 34 pg (25-35) Mean Corpuscular Hemoglobin Concent 32 g/dL (31-37) 32 g/dL (31-37) Red Cell Distribution Width 15.7 % (11.5-14.5) 15.8 % (11.5-14.5) Platelet Count 165 x10^3/uL (140-400) 136 x10^3/uL (140-400) Neutrophils (%) (Auto) 66 % (31-73) 67 % (31-73) Lymphocytes (%) (Auto) 14 % (24-48) 15 % (24-48) Monocytes (%) (Auto) 12 % (0-9) 13 % (0-9) Eosinophils (%) (Auto) 7 % (0-3) 5 % (0-3) Basophils (%) (Auto) 0 % (0-3) 1 % (0-3) Neutrophils # (Auto) 3.9 x10^3uL (1.8-7.7) 3.1 x10^3uL (1.8-7.7) Lymphocytes # (Auto) 0.9 x10^3/uL (1.0-4.8) 0.7 x10^3/uL (1.0-4.8) Monocytes # (Auto) 0.7 x10^3/uL (0.0-1.1) 0.6 x10^3/uL (0.0-1.1) Eosinophils # (Auto) 0.4 x10^3/uL (0.0-0.7) 0.3 x10^3/uL (0.0-0.7) Basophils # (Auto) 0.0 x10^3/uL (0.0-0.2) 0.0 x10^3/uL (0.0-0.2) Sodium Level 132 mmol/L (136-145) 132 mmol/L (136-145) Potassium Level 4.0 mmol/L (3.5-5.1) 3.8 mmol/L (3.5-5.1) Chloride Level 96 mmol/L (98-107) 94 mmol/L (98-107) Carbon Dioxide Level 32 mmol/L (21-32) 35 mmol/L (21-32) Anion Gap 4 (6-14) 3 (6-14) Blood Urea Nitrogen 56 mg/dL (7-20) 56 mg/dL (7-20) Creatinine 2.4 mg/dL (0.6-1.0) 2.5 mg/dL (0.6-1.0) Estimated GFR (Cockcroft-Gault) 19.8 18.9 Glucose Level 94 mg/dL (70-99) 108 mg/dL (70-99) Calcium Level 9.7 mg/dL (8.5-10.1) 9.4 mg/dL (8.5-10.1) Phosphorus Level 4.6 mg/dL (2.6-4.7) 4.3 mg/dL (2.6-4.7) Magnesium Level 1.9 mg/dL (1.8-2.4) 1.9 mg/dL (1.8-2.4) Albumin 1.4 g/dL (3.4-5.0) 1.3 g/dL (3.4-5.0) Laboratory Tests Test 12/14/16 03:55 White Blood Count 4.7 x10^3/uL (4.0-11.0) Red Blood Count 2.70 x10^6/uL (3.50-5.40) Hemoglobin 9.2 g/dL (12.0-15.5) Hematocrit 28.9 % (36.0-47.0) Mean Corpuscular Volume 107 fL (79-100) Mean Corpuscular Hemoglobin 34 pg (25-35) Mean Corpuscular Hemoglobin Concent 32 g/dL (31-37) Red Cell Distribution Width 15.8 % (11.5-14.5) Platelet Count 136 x10^3/uL (140-400) Neutrophils (%) (Auto) 67 % (31-73) Lymphocytes (%) (Auto) 15 % (24-48) Monocytes (%) (Auto) 13 % (0-9) Eosinophils (%) (Auto) 5 % (0-3) Basophils (%) (Auto) 1 % (0-3) Neutrophils # (Auto) 3.1 x10^3uL (1.8-7.7) Lymphocytes # (Auto) 0.7 x10^3/uL (1.0-4.8) Monocytes # (Auto) 0.6 x10^3/uL (0.0-1.1) Eosinophils # (Auto) 0.3 x10^3/uL (0.0-0.7) Basophils # (Auto) 0.0 x10^3/uL (0.0-0.2) Sodium Level 132 mmol/L (136-145) Potassium Level 3.8 mmol/L (3.5-5.1) Chloride Level 94 mmol/L (98-107) Carbon Dioxide Level 35 mmol/L (21-32) Anion Gap 3 (6-14) Blood Urea Nitrogen 56 mg/dL (7-20) Creatinine 2.5 mg/dL (0.6-1.0) Estimated GFR (Cockcroft-Gault) 18.9 Glucose Level 108 mg/dL (70-99) Calcium Level 9.4 mg/dL (8.5-10.1) Phosphorus Level 4.3 mg/dL (2.6-4.7) Magnesium Level 1.9 mg/dL (1.8-2.4) Albumin 1.3 g/dL (3.4-5.0) Microbiology 12/09/16 Blood Culture - Final, Complete NO GROWTH AFTER 5 DAYS 12/09/16 Urine Culture - Final, Complete 12/09/16 Urine Culture Result 1 (WIN) - Final, Complete 12/09/16 Antimicrobic Susceptibility - Final, Complete Medications Current Medications Aspirin (Children'S Aspirin) 324 mg 1X ONCE PO Last administered on 12/09/16 08:09; Start 12/09/16 at 08:00; Stop 12/09/16 at 08:01; Status DC Sodium Chloride (Normal Saline Flush) 10 ml QSHIFT PRN IV AFTER MEDS AND BLOOD DRAWS; Start 12/09/16 at 07:30 Methylprednisolone Sodium Succinate (SOLU-Medrol 125MG VIAL) 125 mg 1X ONCE IV Last administered on 12/09/16 08:08; Start 12/09/16 at 08:15; Stop 12/09/16 at 08:16; Status DC Albuterol/ Ipratropium (Duoneb) 3 ml 1X ONCE NEB Last administered on 08:19; Start 12/09/16 at 08:15; Stop 12/09/16 at 08:16; Status DC Albuterol/ Ipratropium (Duoneb) 3 ml 1X ONCE NEB Last administered on 08:19; Start 12/09/16 at 08:15; Stop 12/09/16 at 08:16; Status DC Albuterol/ Ipratropium (Duoneb) 3 ml 1X ONCE NEB Last administered on 08:01; Start 12/09/16 at 07:45; Stop 12/09/16 at 07:46; Status DC Ciprofloxacin Lactate 200 ml @ 200 mls/hr Q12HR IV Last administered on 08:55; Start 12/09/16 at 09:15; Stop 12/12/16 at 14:25; Status DC Furosemide (Lasix) 40 mg 1X ONCE IVP Last administered on 12/09/16 09:06; Start 12/09/16 at 09:00; Stop 12/09/16 at 09:01; Status DC Ciprofloxacin Lactate 200 ml @ 200 mls/hr 1X ONCE IV Last administered on 09:30; Start 12/09/16 at 09:30; Stop 12/09/16 at 10:29; Status DC Ondansetron HCl (Zofran) 4 mg PRN Q8HRS PRN IV NAUSEA/VOMITING; Start 12/09/16 at 08:45; Stop 12/10/16 at 08:44; Status DC Acetaminophen (Tylenol) 650 mg PRN Q4HRS PRN PO FEVER; Start 12/09/16 at 08:45 ; Stop 12/10/16 at 08:44; Status DC Nitroglycerin (Nitrostat) 0.4 mg PRN Q5MIN PRN SL CHEST PAIN; Start 12/09/16 at 08:45; Stop 12/10/16 at 08:44; Status DC Albuterol/ Ipratropium (Duoneb) 3 ml RTQID NEB Last administered on 12/10/16 11:31; Start 12/09/16 at 12:00; Stop 12/10/16 at 11:59; Status DC Albuterol Sulfate (Ventolin Hfa) 2 puff PRN Q4HRS IH ; Start 12/10/16 at 01:00 ; Status UNV Aspirin (Ecotrin) 81 mg DAILY PO Last administered on 12/14/16 08:32; Start at 09:00 Carvedilol (Coreg) 6.25 mg BIDWMEALS PO Last administered on 12/14/16 08:33; Start 12/10/16 at 08:00 Vitamin D (Vitamin D3) 2,000 unit DAILY PO Last administered on 12/14/16 08:32 ; Start 12/10/16 at 09:00 Fenofibrate (Lofibra) 134 mg DAILY PO Last administered on 12/14/16 08:31; Start 12/10/16 at 09:00 Ferrous Sulfate (Feosol) 325 mg BID PO Last administered on 12/14/16 08:32; Start 12/10/16 at 09:00 Furosemide (Lasix) 20 mg DAILY PO Last administered on 12/11/16 08:19; Start 12/10/16 at 09:00; Stop 12/13/16 at 11:14; Status DC Acetaminophen/ Hydrocodone Bitart (Lortab 7.5/325) 1 tab PRN Q8HRS PRN PO SEVERE PAIN Last administered on 12/13/16 21:30; Start 12/10/16 at 01:00 Losartan Potassium (Cozaar) 50 mg DAILY PO Last administered on 12/14/16 08:33 ; Start 12/10/16 at 09:00 Simvastatin (Zocor) 20 mg HS PO Last administered on 12/13/16 21:22; Start at 21:00 Calcium Carbonate/ Glycine (Oscal) 500 mg BIDWMEALS PO Last administered on 08:31; Start 12/10/16 at 08:00 Escitalopram Oxalate (Lexapro) 10 mg DAILY PO Last administered on 12/14/16 08 :34; Start 12/10/16 at 09:00 Albuterol Sulfate (Ventolin Neb Soln) 2.5 mg PRN Q4HRS PRN NEB SHORTNESS OF BREATH; Start 12/10/16 at 01:15 Albuterol/ Ipratropium (Duoneb) 3 ml RTQID NEB Last administered on 12/14/16 11:08; Start 12/10/16 at 16:30 Magnesium Sulfate/ Dextrose 50 ml @ 25 mls/hr PRN DAILY PRN IV for Mag < 1.7 on am labs; Start 12/11/16 at 09:30 Furosemide 100 mg/ Sodium Chloride 100 ml @ 0 mls/hr CONT PRN IV SEE I/O RECORD Last administered on 12/12/16 22:07; Start 12/11/16 at 10:00; Stop 12/13 at 10:44; Status DC Darbepoetin Rm (Aranesp) 60 mcg WEEKLYHS SQ Last administered on 12/11/16 20 :58; Start 12/11/16 at 21:00 Heparin Sodium (Porcine) (Heparin Sq) 5,000 unit BID SQ Last administered on 08:49; Start 12/11/16 at 21:00 Furosemide (Lasix) 40 mg [id number] PO Last administered on 12/14/16 08:31; Start 12/13/16 at 14:00 Active Scripts Active Reported Vitamin D3 (Cholecalciferol (Vitamin D3)) 1,000 Unit Tablet 2 Tab PO DAILY Escitalopram Oxalate 10 Mg Tablet 10 Mg PO DAILY Zocor (Simvastatin) 20 Mg Tablet 20 Mg PO HS Cozaar (Losartan Potassium) 50 Mg Tablet 50 Mg PO DAILY Lasix (Furosemide) 20 Mg Tablet 20 Mg PO DAILY Hydrocodone-Apap 7.5-325 (Hydrocodone Bit/Acetaminophen) 1 Each Tablet 1 Each PO PRN Q8HRS Ferrous Sulfate 325 Mg Tablet 325 Mg PO BID Lofibra (Fenofibrate,Micronized) 134 Mg Capsule 134 Mg PO DAILY [Vitamin D ] Coreg (Carvedilol) 6.25 Mg Tablet 6.25 Mg PO BID Calcium (Calcium Carbonate) 600 Mg Tablet 600 Mg PO BID Aspir 81 (Aspirin) 81 Mg Tablet.dr 81 Mg PO DAILY Albuterol Sulfate Hfa Inhaler (Albuterol Sulfate) 8.5 Gm Hfa.aer.ad 8.5 Gm IH PRN Q4HRS Vitals/I & O Vital Sign - Last 24 Hours 12/13/16 12/13/16 12/13/16 12/13/16 13:05 14:39 15:00 15:16 Temp 98.2 98.2 Pulse 70 Resp 18 B/P (MAP) 158/54 (88) Pulse Ox 99 99 96 99 O2 Delivery Nasal Cannula Nasal Cannula Nasal Cannula Nasal Cannula O2 Flow Rate 2.0 2.0 2.0 2.0 12/13/16 12/13/16 12/13/16 12/13/16 16:45 19:00 20:00 20:05 Temp 98.2 98.2 Pulse 70 69 Resp 16 B/P (MAP) 158/54 121/79 (93) Pulse Ox 99 98 O2 Delivery Nasal Cannula Nasal Cannula Nasal Cannula O2 Flow Rate 2.0 2.0 2.0 12/13/16 12/13/16 12/14/16 12/14/16 21:30 22:33 07:00 07:27 Temp 97.8 97.6 97.8 97.6 Pulse 80 74 Resp 20 18 20 B/P (MAP) 134/76 (95) 175/67 (103) Pulse Ox 95 92 100 O2 Delivery Nasal Cannula Nasal Cannula Room Air Nasal Cannula O2 Flow Rate 2.0 2.0 2.0 12/14/16 12/14/16 12/14/16 12/14/16 08:22 08:33 08:33 11:00 Temp 98.5 98.5 Pulse 74 80 68 Resp 20 B/P (MAP) 175/67 134/76 123/60 (81) Pulse Ox 95 O2 Delivery Nasal Cannula Room Air O2 Flow Rate 2.0 12/14/16 11:09 O2 Delivery Nasal Cannula O2 Flow Rate 2.0 Intake and Output 12/13/16 12/13/16 12/14/16 15:00 23:00 07:00 Intake Total 530 ml 180 ml 800 ml Output Total 700 ml 250 ml Balance -170 ml -70 ml 800 ml EDEL MEEK III DO Dec 14, 2016 12:41
[2016-12-14] MEDS ORDERED: POTASSIUM CHLORIDE 20 MEQ TABLET.ER. PO ONE (13:30)
== END 2016-12-14 13:55 | disposition home health service (06) | DRG 291 ==
LOC: ER 07:10 → 5 SOUTH 09:08
PROVIDERS: ADMIT Internal Medicine Hematology & Oncology; ATTEND Internal Medicine Hematology & Oncology
DX: I50.33 Acute on chronic diastolic (congestive) heart failure (principal); N17.0 Acute kidney failure with tubular necrosis; J96.21 Acute and chronic respiratory failure with hypoxia; E46 Unspecified protein-calorie malnutrition; I13.0 Hypertensive heart and chronic kidney disease with heart failure and stage 1 through stage 4 chronic kidney disease, or unspecified chronic kidney disease; N39.0 Urinary tract infection, site not specified; N18.4 Chronic kidney disease, stage 4 (severe); D53.9 Nutritional anemia, unspecified; E78.00 Pure hypercholesterolemia, unspecified; E78.5 Hyperlipidemia, unspecified; I25.10 Atherosclerotic heart disease of native coronary artery without angina pectoris; J44.9 Chronic obstructive pulmonary disease, unspecified; Z82.49 Family history of ischemic heart disease and other diseases of the circulatory system; Z87.891 Personal history of nicotine dependence; Z95.1 Presence of aortocoronary bypass graft; Z96.651 Presence of right artificial knee joint; Z99.81 Dependence on supplemental oxygen; F32.9 Major depressive disorder, single episode, unspecified; M19.90 Unspecified osteoarthritis, unspecified site; Z88.8 Allergy status to other drugs, medicaments and biological substances; Z68.32 Body mass index [BMI] 32.0-32.9, adult
CPT/HCPCS: 36415; 51701; 71010; 71020; 71250; 80048; 80053; 80069; 80074; 80076; 81001; 82553; 82575; 82607; 82728; 82746; 83540; 83550; 83605; 83690; 83735; 83880; 83970; 84156; 84443; 84484; 85018; 85025; 85045; 86704; 86706; 87040; 87086; 87186; 93005; 93306; 94250; 94640; 94760; 96365; 96375; J0744; J0881; J1940; J2930; J7620; 99291-25

== ENCOUNTER → 2016-12-20 | Outpatient (CLI) | payer MEDICARE ==
[2016-12-14 11:00] VITALS: BP 123/60
[~2016-12-20] MED LIST changes: +CALC-31 PO; +CHOL10003 PO; +CIPR500T94 PO; +FURO20TA3 PO; +POTA20TA82 PO
[2016-12-20 16:51] LABS: BASO % 1 % (0-3); EOS % 4 % (0-3); HEMATOCRIT 35.3 % (36.0-47.0); HEMOGLOBIN 11.3 g/dL (12.0-15.5); LYMPH # 0.7 x10^3/uL (1.0-4.8); LYMPH % 14 % (24-48); MEAN CORPUSCULAR HEMOGLOBIN 34 pg (25-35); MEAN CORPUSCULAR HGB CONC 32 g/dL (31-37); MEAN CORPUSCULAR VOLUME 107 fL (79-100); MONO % 12 % (0-9); NEUT % 69 % (31-73); PLATELET COUNT 171 x10^3/uL (140-400); RED BLOOD COUNT 3.29 x10^6/uL (3.50-5.40); RED CELL DISTRIBUTION WIDTH 16.5 % (11.5-14.5); WHITE BLOOD COUNT 5.1 x10^3/uL (4.0-11.0)
[2016-12-20 16:59] LABS: ALBUMIN 1.8 g/dL (3.4-5.0); BLOOD UREA NITROGEN 50 mg/dL (7-20); CALCIUM 8.9 mg/dL (8.5-10.1); CARBON DIOXIDE 35 mmol/L (21-32); CHLORIDE 102 mmol/L (98-107); CREATININE 2.5 mg/dL (0.6-1.0); GFR 18.9; GLUCOSE 108 mg/dL (70-99); MAGNESIUM 1.8 mg/dL (1.8-2.4); PHOSPHORUS 3.8 mg/dL (2.6-4.7); SODIUM 135 mmol/L (136-145)
[2016-12-20 17:10] LABS: BILIRUBIN,URINE NEGATIVE (NEG); GLUCOSE,URINE 100 mg/dL (NEG); NITRITE,URINE NEGATIVE (NEG); PH,URINE 7.5; PROTEIN,URINE >=300 mg/dL (NEG-TRACE); UROBILINOGEN,URINE 0.2 mg/dL (0.2 mg/dL)
[2016-12-20 17:13] LABS: POTASSIUM 6.6 mmol/L (3.5-5.1)
[2016-12-20 17:15] LABS: BACTERIA,URINE FEW /HPF (0-FEW); SQUAMOUS EPITHELIAL CELL,UR MOD /LPF
== END | disposition home or self-care (01) ==
LOC: LAB 16:17
PROVIDERS: ATTEND Internal Medicine Nephrology
DX: N18.4 Chronic kidney disease, stage 4 (severe) (principal); D63.1 Anemia in chronic kidney disease
CPT/HCPCS: 36415; 80069; 81001; 83735; 85025; 87086

== ENCOUNTER → 2017-02-14 | Outpatient (CLI) | payer MEDICARE ==
[2016-12-27 17:35] VITALS: BP 139/82
[~2017-02-14] MED LIST changes: +METO2.5T PO
--- NOTE | 2017-02-14 14:27 | PAIN ---
DATE OF SERVICE: 02/14/2017 DIAGNOSES: Low back pain, chronic with lumbar degenerative disk disease and thoracic degenerative disk disease. HISTORY OF PRESENT ILLNESS: The patient is a 71-year-old female who returns for followup status post medication management with hydrocodone 7.5 mg. The patient reports she is still doing very well with this and is on a very stable regimen for extended period of time now with good results and about 70-80% improvement with the pain in her low back and mid back with medication without side effects. The patient reports she is doing quite well with regard to her pain; however, she has had some difficulty recently with her kidney function and has been started on hemodialysis 3 times weekly currently. The patient reports that otherwise she is feeling fairly well. Pain is fairly well controlled again in the mid back and low back. There is sharp, aching pain at times, rates as 6 on a scale of 10 at its worst, 5 on average and 2 on a scale of 10 currently and 2 is its least level. The patient reports no new motor or sensory deficits. No new bowel or bladder incontinence. Again, taking her medications without significant side effects. PHYSICAL EXAMINATION: VITAL SIGNS: Today, the patient's blood pressure is 143/53, pulse is 74, respirations are 18, temperature 97.4 degrees Fahrenheit, height is 4 feet 10 inches. The patient forgoes her weight today as she is in a wheelchair and it is cumbersome for her to get in and out of it. GENERAL: The patient is awake, alert, oriented, appropriate, very pleasant demeanor. HEENT: Head shows normocephalic, atraumatic. Extraocular movements are intact and symmetrical. Oral cavity, mucous membranes moist and pink. Dentition is intact. NECK: Shows anterior throat supple without palpable lymphadenopathy noted. Swallow reflex is symmetrical. CHEST: Shows a dialysis catheter placed in the right subclavian region, which is well bandaged and clean and intact. Breath sounds are clear bilaterally, but coarse without rales, rhonchi or wheezes. HEART: Shows S1 and S2 clear. No murmurs auscultated. ABDOMEN: Soft, nontender, nondistended. No palpable organomegaly is noted. No rebound or guarding demonstrated. BACK: Shows spine grossly in the midline. Significant increase in thoracic kyphosis as well as some flattening of lumbar lordotic curvature. Paraspinous musculature shows only some very minimal to mild tenderness with palpation in the mid thoracic distribution bilaterally, but without radiation. No tenderness over the lumbar paraspinous musculature, which is symmetrical. The patient shows good rotational motion both laterally of the lumbar spine as well as extension and flexion without significant increase in pain. EXTREMITIES: The patient's lower extremities showed deep tendon reflexes 1+ in the patellar tendons. Motor exam is approximately 4 on a scale of 5, but equal and symmetrical in lower extremities bilaterally. Options were discussed with the patient. The patient's old chart was reviewed as her current medication regimen updated. Current review of systems updated today as well. We will refill the patient's hydrocodone for a 2 month period. The patient has had appropriate K-TRACS reporting as well as appropriate urinalysis today. The patient is unable to give urinalysis specimen today as she is on dialysis currently. We will renew her narcotic contract as update for documentation. The patient was given instructions as well as side effects to be aware of with the medication and will return to clinic in approximately 2 months or sooner if necessary. YENNY LANCASTER MD DR: ALEXANDER/kvng JOB#: [id number] / [id number]
== END | disposition home or self-care (01) ==
LOC: PNCL 12:51
PROVIDERS: ATTEND Anesthesiology
DX: M51.16 Intervertebral disc disorders with radiculopathy, lumbar region (principal); M51.34 Other intervertebral disc degeneration, thoracic region
CPT/HCPCS: G0463

== ENCOUNTER 2017-03-28 11:25 | Inpatient (IN) | payer MEDICARE ==
[~2017-03-28] VITALS: Ht 139.7 cm; Wt 44.7 kg
[~2017-03-28 11:25] MED LIST changes: +CEPH-263 PO; +FOLI0.8T21 PO; +FURO80TA3 PO; +LACT1CAP6 PO; +VIT1TABL71 PO; +lidoderm TD
[2017-03-28] MEDS ORDERED: fentaNYL PF VIAL 100 MCG/2 ML VIAL IV ONE (11:45)
--- NOTE | 2017-03-28 12:31 | RAD ---
Indication: Fall with severe right knee pain. Time of exam 12:10 PM 3 views of the right knee demonstrate postop changes of total knee arthroplasty. There is a fracture of the distal femur in the supracondylar location. Slight posterior displacement of the distal fracture fragment is seen. There is also some lucency through the patella, suspicious for fracture however the age of this is indeterminate. Proximal tibia appears intact Impression: Supracondylar distal femur fracture, as described. There is also a questionable age indeterminate patellar fracture.
--- NOTE | 2017-03-28 12:34 | RAD ---
Indication: Fall and laceration to leg. Time of exam 12:05 PM 2 views of the left knee demonstrate a fracture of the proximal tibia near the metadiaphyseal junction. No significant displacement or angulation is seen. There is also a fracture of the proximal fibula, nondisplaced. The distal femur appears intact. Vascular calcifications are present. There appears to be a soft tissue injury involving the medial soft tissues just below the knee joint line. Impression: Proximal tibial and fibular fractures.
--- NOTE | 2017-03-28 12:35 | RAD ---
Indication: Laceration to left leg and fall. Time of exam 12:06 PM Proximal tibial and fibular fractures are again noted. No significant displacement or angulation is seen. Alignment at the knee and ankle is normal. There are vascular clips identified in the medial soft tissues. There appears to be a soft tissue injury of the medial soft tissues with soft tissue gas present. Impression: Soft tissue injury with proximal tibial and fibular fractures.
--- NOTE | 2017-03-28 12:36 | RAD ---
Indication: Fall. Axial imaging through the brain was performed without contrast. The ventricles and sulci are appropriate for the patient's age. No sulcal effacement, midline shift or hemorrhage is detected. Cisterns are patent. The visualized paranasal sinuses are clear. Impression: No acute intracranial process is detected. PQRS Compliance Statement: One or more of the following individualized dose reduction techniques were utilized for this examination: 1. Automated exposure control 2. Adjustment of the mA and/or kV according to patient size 3. Use of iterative reconstruction technique
--- NOTE | 2017-03-28 12:42 | RAD ---
Indication: Fall and left knee injury. Axial imaging through the left knee was performed without contrast. Sagittal and coronal reformations were also performed. The distal femur does show a sclerotic, fragmented osteochondral lesion involving the posterior aspect of the medial femoral condyle. Moderate sclerosis of the subchondral bone is noted. No acute fracture of the distal femur or patella is identified. There is an acute fracture of the proximal tibia near the metadiaphyseal junction. No significant displacement or angulation is seen. There is also a fracture of the proximal fibula, nondisplaced. There is a large amount of soft tissue gas noted consistent with an open fracture. No fluid collection is identified. The tibial fractures do not appear to extend to the plateaus. No depression of the plateaus is seen. Impression: Open proximal tibial and fibular fractures, as described. No significant displacement or angulation is seen. Chronic osteochondral lesion of the medial femoral condyle is noted. PQRS Compliance Statement: One or more of the following individualized dose reduction techniques were utilized for this examination: 1. Automated exposure control 2. Adjustment of the mA and/or kV according to patient size 3. Use of iterative reconstruction technique
[2017-03-28] MEDS ORDERED: IV NORMAL SALINE 1000ML BAG 1,000 ML IV SCH (13:00)
[2017-03-28] MEDS ORDERED: DIPHTH,PERTUSS(ACELL),TET TOX 0.5 ML DISP.SYRIN. VAX IM ONE (13:00)
[2017-03-28] MEDS ORDERED: ROPIVacaine 0.75% PF 53.3 ML, EPINEPHrine 0.6 MG, MORPHINE PF 5 MG in IV NORMAL SALINE ... INT ART ONE (13:00)
[2017-03-28] MEDS: MORPHINE SULFATE 2 MG/ML DISP.SYRIN. IV PRN ×2 (13:01→15:50)
[2017-03-28 13:14] LABS: BASO # 0.1 x10^3/uL (0.0-0.2); BASO % 0 % (0-3); EOS % 3 % (0-3); HEMATOCRIT 25.5 % (36.0-47.0); LYMPH # 0.6 x10^3/uL (1.0-4.8); LYMPH % 5 % (24-48); MEAN CORPUSCULAR HEMOGLOBIN 35 pg (25-35); MEAN CORPUSCULAR HGB CONC 32 g/dL (31-37); MEAN CORPUSCULAR VOLUME 112 fL (79-100); MONO % 4 % (0-9); NEUT % 88 % (31-73); PLATELET COUNT 178 x10^3/uL (140-400); RED BLOOD COUNT 2.29 x10^6/uL (3.50-5.40); RED CELL DISTRIBUTION WIDTH 15.1 % (11.5-14.5); WHITE BLOOD COUNT 12.1 x10^3/uL (4.0-11.0)
[2017-03-28 13:17] LABS: CALCIUM 8.8 mg/dL (8.5-10.1); CREATININE 1.7 mg/dL (0.6-1.0); GFR 29.5
[2017-03-28 13:29] LABS: INR 1.2 (0.8-1.1); PROTHROMBIN TIME PATIENT 14.6 SEC (11.7-14.0)
[2017-03-28 14:00] VITALS: BP 170/65
[2017-03-28 14:15] VITALS: BP 170/65
[2017-03-28 14:19] LABS: % BASOS 1 % (0-3)
[2017-03-28 14:21] LABS: OVALOCYTES FEW; PLT ESTIMATE ADEQUATE (ADEQUATE); POLYCHROMASIA SLIGHT
[2017-03-28] MEDS ORDERED: fentaNYL PF VIAL 100 MCG/2 ML VIAL IV PRN ×4 (14:30→22:30)
[2017-03-28] MEDS ORDERED: ACETAMINOPHEN 325 MG TABLET. PO PRN (14:30)
[2017-03-28] MEDS ORDERED: ONDANSETRON PF 4 MG/2 ML VIAL. IV PRN ×3 (14:30→22:30)
--- NOTE | 2017-03-28 14:39 | PDOC1 ---
History and Physical Date of Admission Date of Admission DATE: 03/28/17 TIME: 14:32 Identification/Chief Complaint Chief Complaint Mechanical fall today Problems: Source Source: Caregiver, Chart review, Patient History of Present Illness History of Present Illness Multiple family members at bedside, history obtained through them. Patient is a 71-year-old female, very frail, known patient of Dr. Diane as he did her total knee replacement some years ago. Had a mechanical fall today. She lives at home with , and ambulates with. Assistive device namely walker or cane when necessary. She did not hit her head or lose consciousness. Unfortunately she sustained a distal right femoral fracture, open tib-fib fracture on the left. Patient has been nothing by mouth planned for OR 2 hours time. Patient has significant CAD history of CABG was just recently here for chest pain shortness of breath. Can be short of breath barely walking 2 feet. Patient is a DNR/DNI. Patient is a known patient of Dr. Rivera Known history of osteoporosis, but unsure if she ever got bisphosphonate by her PCP. patient PCPs Dr. Steiner. Past Medical History Cardiovascular: CAD, CHF, HTN, Hyperlipidemia Pulmonary: COPD CENTRAL NERVOUS SYSTEM: Other GI: GERD, Other Heme/Onc: Anemia NOS Hepatobiliary: No pertinent hx Psych: Anxiety Musculoskeletal: Osteoarthritis Rheumatologic: No pertinent hx Infectious disease: No pertinent hx Renal/: Chronic renal failure, UTI Endocrine: No pertinent hx Past Surgical History Past Surgical History: CABG, Total knee replacement, Tubal Ligation, Other Family History Family History: Coronary Artery Disease Social History Smoke: No ALCOHOL: none Drugs: None Current Medications Current Medications Current Medications Fentanyl Citrate (Fentanyl 2ml Vial) 50 mcg 1X ONCE IV ; Start 03/28/17 at 11: 45; Stop 03/28/17 at 11:46; Status DC Cefazolin Sodium/ Dextrose 50 ml @ 100 mls/hr 1X ONCE IV ; Start 03/28/17 at 12:30; Stop 03/28/17 at 12:59; Status DC Diphtheria/ Tetanus/Acell Pertussis (Boostrix) 0.5 ml ONCE ONCE VAX IM ; Start 03/28/17 at 13:00; Stop 03/28/17 at 13:01; Status DC Sodium Chloride 1,000 ml @ 75 mls/hr [id number] IV ; Start 03/28/17 at 13:00 Morphine Sulfate 2 mg PRN Q2HR PRN IV PAIN Last administered on 03/28/17t 13:01 ; Start 03/28/17 at 13:00; Stop 03/29/17 at 12:59 Ropivacaine 53.3 ml/Epinephrine HCl 0.6 mg/ Morphine Sulfate 5 mg/Sodium Chloride 100 ml @ 100 mls/hr 1X ONCE INT ART ; Start 03/28/17 at 13:00; Stop 03/28/17 at 13:59; Status DC Active Scripts Active Probiotic (Lactobacillus Acidophilus) 1 Each Capsule 1 Each PO BID Keflex (Cephalexin) 250 Mg Capsule 1 Cap PO AFTER DIALYSIS Furosemide 80 Mg Tablet 80 Mg PO DAILY Cozaar (Losartan Potassium) 50 Mg Tablet 100 Mg PO DAILY 30 Days Reported [lidoderm ] 2 Patch TD DAILY [facility] Rx Tablet (Vit B Cmplx 3/Fa/Vit C/Biotin) 1 Each Tablet 1 Each PO 3X/ WEEK [facility] Tablet (Folic Acid/Vitamin B Comp W-C) 0.8 Mg Tablet 0.8 Mg PO Calcium 500 + D Tablet (Calcium Carbonate/Vitamin D3) 1 Each Tablet 500 Each PO BID Vitamin D3 (Cholecalciferol (Vitamin D3)) 1,000 Unit Tablet 2 Tab PO HS Escitalopram Oxalate 10 Mg Tablet 10 Mg PO DAILY Zocor (Simvastatin) 20 Mg Tablet 20 Mg PO HS Hydrocodone-Apap 7.5-325 (Hydrocodone Bit/Acetaminophen) 1 Each Tablet 1 Each PO PRN Q8HRS Lofibra (Fenofibrate,Micronized) 134 Mg Capsule 145 Mg PO DAILY Coreg (Carvedilol) 6.25 Mg Tablet 6.25 Mg PO BID Aspir 81 (Aspirin) 81 Mg Tablet.dr 81 Mg PO DAILY Albuterol Sulfate Hfa Inhaler (Albuterol Sulfate) 8.5 Gm Hfa.aer.ad 8.5 Gm IH PRN Q4HRS Allergies Allergies: Coded Allergies: quinine (Verified Allergy, Severe, Anaphylaxis, 04/26/13) ROS Review of System A 14 point ROS was completed with the following noted as positive: Other systems reviewed and negative. \CONSTITUTIONAL: No fever or chills EYES: No recent changes SKIN: No rash or itching CARDIOVASCULAR: No chest pain, syncope, palpitations, or edema RESPIRATORY: No SOB or cough GASTROINTESTINAL: No nausea, vomiting or abdominal pain NEUROLOGICAL: No headaches or weakness ENDOCRINE: No cold or heat intolerance GENITOURINARY: No urgency or frequency of urination MUSCULOSKELETAL: No back pain or joint pain LYMPHATICS: No enlarged lymph nodes PSYCHIATRIC: No anxiety or depression pOsitive for ext pain on affected extremities Physical Exam Physical Exam Physical Exam General: Alert, Oriented X3, Cooperative, No acute distress HEENT: Atraumatic, PERRLA Lungs: Normal air movement, Other (wheezy) Heart: S1S2, RRR, no thrills, no gallops, no murmurs Cardiovascular: S1, S2 Abdomen: Normal bowel sounds, Soft, No tenderness, No hepatosplenomegaly, No masses, Other (obese) Rectal Exam: not examined PELVIC: Nml ext genitalia Extremities: CAst on left leg, CAst on RT thigh Skin: No rashes, No breakdown, No significant lesion Neuro: Normal gait, Normal speech, Strength at 5/5 X4 ext, Normal tone, Sensation intact, Cranial nerves 3-12 NL, Reflexes 2+ Psych/Mental Status: Mental status NL, Mood NL Vitals Vitals Vital Signs Date Time Temp Pulse Resp B/P (MAP) Pulse Ox O2 Delivery O2 Flow Rate FiO2 03/28/17 14:15 97.4 72 18 170/65 (100) 100 Nasal Cannula 2.0 97.4 Labs Labs Laboratory Tests Test 03/28/17 13:00 White Blood Count 12.1 x10^3/uL (4.0-11.0) Red Blood Count 2.29 x10^6/uL (3.50-5.40) Hemoglobin 8.0 g/dL (12.0-15.5) Hematocrit 25.5 % (36.0-47.0) Mean Corpuscular Volume 112 fL (79-100) Mean Corpuscular Hemoglobin 35 pg (25-35) Mean Corpuscular Hemoglobin Concent 32 g/dL (31-37) Red Cell Distribution Width 15.1 % (11.5-14.5) Platelet Count 178 x10^3/uL (140-400) Neutrophils (%) (Auto) 88 % (31-73) Lymphocytes (%) (Auto) 5 % (24-48) Monocytes (%) (Auto) 4 % (0-9) Eosinophils (%) (Auto) 3 % (0-3) Basophils (%) (Auto) 0 % (0-3) Neutrophils # (Auto) 10.6 x10^3uL (1.8-7.7) Lymphocytes # (Auto) 0.6 x10^3/uL (1.0-4.8) Monocytes # (Auto) 0.5 x10^3/uL (0.0-1.1) Eosinophils # (Auto) 0.4 x10^3/uL (0.0-0.7) Basophils # (Auto) 0.1 x10^3/uL (0.0-0.2) Segmented Neutrophils % 83 % (35-66) Band Neutrophils % 6 % (0-9) Lymphocytes % 4 % (24-48) Monocytes % 6 % (0-10) Basophils % 1 % (0-3) Platelet Estimate Adequate (ADEQUATE) Polychromasia Slight Macrocytosis Mod Ovalocytes Few Prothrombin Time 14.6 SEC (11.7-14.0) Prothromb Time International Ratio 1.2 (0.8-1.1) Sodium Level 136 mmol/L (136-145) Potassium Level 4.0 mmol/L (3.5-5.1) Chloride Level 101 mmol/L (98-107) Carbon Dioxide Level 35 mmol/L (21-32) Anion Gap 0 (6-14) Blood Urea Nitrogen 19 mg/dL (7-20) Creatinine 1.7 mg/dL (0.6-1.0) Estimated GFR (Cockcroft-Gault) 29.5 Glucose Level 143 mg/dL (70-99) Calcium Level 8.8 mg/dL (8.5-10.1) Laboratory Tests Test 03/28/17 13:00 White Blood Count 12.1 x10^3/uL (4.0-11.0) Red Blood Count 2.29 x10^6/uL (3.50-5.40) Hemoglobin 8.0 g/dL (12.0-15.5) Hematocrit 25.5 % (36.0-47.0) Mean Corpuscular Volume 112 fL (79-100) Mean Corpuscular Hemoglobin 35 pg (25-35) Mean Corpuscular Hemoglobin Concent 32 g/dL (31-37) Red Cell Distribution Width 15.1 % (11.5-14.5) Platelet Count 178 x10^3/uL (140-400) Neutrophils (%) (Auto) 88 % (31-73) Lymphocytes (%) (Auto) 5 % (24-48) Monocytes (%) (Auto) 4 % (0-9) Eosinophils (%) (Auto) 3 % (0-3) Basophils (%) (Auto) 0 % (0-3) Neutrophils # (Auto) 10.6 x10^3uL (1.8-7.7) Lymphocytes # (Auto) 0.6 x10^3/uL (1.0-4.8) Monocytes # (Auto) 0.5 x10^3/uL (0.0-1.1) Eosinophils # (Auto) 0.4 x10^3/uL (0.0-0.7) Basophils # (Auto) 0.1 x10^3/uL (0.0-0.2) Segmented Neutrophils % 83 % (35-66) Band Neutrophils % 6 % (0-9) Lymphocytes % 4 % (24-48) Monocytes % 6 % (0-10) Basophils % 1 % (0-3) Platelet Estimate Adequate (ADEQUATE) Polychromasia Slight Macrocytosis Mod Ovalocytes Few Prothrombin Time 14.6 SEC (11.7-14.0) Prothromb Time International Ratio 1.2 (0.8-1.1) Sodium Level 136 mmol/L (136-145) Potassium Level 4.0 mmol/L (3.5-5.1) Chloride Level 101 mmol/L (98-107) Carbon Dioxide Level 35 mmol/L (21-32) Anion Gap 0 (6-14) Blood Urea Nitrogen 19 mg/dL (7-20) Creatinine 1.7 mg/dL (0.6-1.0) Estimated GFR (Cockcroft-Gault) 29.5 Glucose Level 143 mg/dL (70-99) Calcium Level 8.8 mg/dL (8.5-10.1) VTE Prophylaxis Ordered VTE Prophylaxis Devices: Yes VTE Pharmacological Prophylaxi: Yes Assessment/Plan Assessment/Plan Distal right femoral fracture Open proximal tib-fib fracture left Mechanical fall at home CAD, history of CABG Geriatric, high fall risk [id number] PCN ESRD on hemodialysis Monday did not miss any session History of osteoporosis DNR/DNI plan of care: Nothing by mouth now, IVF nothing by mouth Consult Dr. Haji done Consult renal for dialysis Dialysis prerenal Check vitamin D levels Check postop labs tomorrow Continue IVF Risks of procedure is known to patient and family are explained and they're willing to proceed. Social work consult for discharge planning. Family is all agreeable that she will needs new this time and she agrees to. Discussed with RUBEN JASMINE MD Mar 28, 2017 14:39
--- NOTE | 2017-03-28 15:18 | PHYS DOC ---
Past Medical History Past Medical History: Anemia, Anxiety, CAD, CHF, COPD, Depression, High Cholesterol, Heart Disease, Hypertension, Renal Failure Additional Past Medical Histor: EMPHYSEMA, CKD Past Surgical History: Coronary Bypass Surgery, Knee Replacement, Other Additional Past Surgical Histo: R KNEE REPLACEMENT, VERTEBRAE FUSED Alcohol Use: None Drug Use: None Adult General Chief Complaint Chief Complaint: MECHANICAL FALL HPI HPI Patient is a 71 year old female who presents with bilateral leg pain after a mechanical fall. Pt states she was home when she went to stand and fell over. Denies syncope, did not hit head or have loc. Denies neck or back pain. denies blood thinners. Pt brought in by EMS, she was unable to get up and couldn't straighten her legs. Review of Systems Review of Systems Constitutional: Denies fever or chills [] Eyes: Denies change in visual acuity, redness, or eye pain [] HENT: Denies nasal congestion or sore throat [] Respiratory: Denies cough or shortness of breath [] Cardiovascular: Denies chest pain GI: Denies abdominal pain, nausea, vomiting, bloody stools or diarrhea [] : Denies dysuria or hematuria [] Musculoskeletal: Denies back pain , reports bilateral leg pain Integument: Denies rash or skin lesions [] Neurologic: Denies headache, focal weakness or sensory changes [] Current Medications Current Medications Current Medications Medications (Trade) Dose Ordered Sig/Jacquie Start Time Stop Time Status Last Admin Dose Admin Fentanyl Citrate (Fentanyl 2ml Vial) 50 mcg 1X ONCE 03/28/17 11:45 03/28/17 11:46 DC Physical Exam Physical Exam Constitutional: Well developed, well nourished, frail, appears in moderate pain with movement of legs. HENT: Normocephalic, atraumatic, bilateral external ears normal, oropharynx moist, no oral exudates, nose normal. [] Eyes: PERRLA, EOMI, conjunctiva normal, no discharge. [] Neck: Normal range of motion, no midline stepoffs or tenderness, supple, no stridor. [] Cardiovascular:Heart rate regular with regular rhythm, no murmur [] Lungs & Thorax: Bilateral breath sounds clear to auscultation, no wheeze Abdomen: soft, no tenderness, no masses, no pulsatile masses.pelvis is stable Skin: Warm, dry, no erythema, no rash. [] Back: No midline tenderness, no CVA tenderness. [] Extremities: LLE: ttp with large open wound of anterior proximal lower leg, moderate hemostasis, exposed bone, distal pulse intact, knee in flexed position , no femur or knee ttp RLE with flexed knee, deformity of distal femur, no tib/fib ttp, skin intact, no tenting, distal pulse intact RUE with skin tear, no other deformity, LUE without ttp or deformity Neurologic: Alert and oriented X 3, normal motor function, normal sensory function, no focal deficits noted. [] Psychologic: Affect normal, judgement normal, mood normal. [] Current Patient Data Vital Signs Vital Signs Date Time Temp Pulse Resp B/P (MAP) Pulse Ox O2 Delivery O2 Flow Rate FiO2 03/28/17 11:25 97.6 72 24 145/99 (114) 97 Nasal Cannula 2.0 97.6 EKG EKG [] Radiology/Procedures Radiology/Procedures Ct Head: Impression: No acute intracranial process is detected. XR R knee reviewed by me 3 view: angulated distal femur fracture just proximal to knee prosthesis, interpreted by me XR L tib/fib 2 view: both bone proximal fracture, no significant angulation, interpreted by me[] CT LLE reviewed Course & Med Decision Making Course & Med Decision Making Pertinent Labs and Imaging studies reviewed. (See chart for details) Pt had received 100mcg IV fentanyl by EMS. WE ordered additional fentanyl but pt declined. CT head performed due to distracting injuries and nature of the fall. I talked with Dr. Haji, he requested CT LLE. 2g Ancef IV ordered, pt reports tdap updated in last 5 years. Pt admitted to Dr. Bullock, plan for pt to go to OR around 5pm. bilateral posterior splints placed on LEs by nursing and reviewed by me to have good distal neurovascular status. Total critical care time: 35 minutes Dragon Disclaimer Dragon Disclaimer This electronic medical record was generated, in whole or in part, using a voice recognition dictation system. Departure Departure Impression: Primary Impression: Open fibular fracture Additional Impression: Femur fracture, right Disposition: 09 ADMITTED INPATIENT Condition: GUARDED Problem Qualifiers LIGIA KIMBROUGH MD Mar 28, 2017 15:18
[2017-03-28] MEDS ORDERED: IV RINGERS,LACTATED 1000ML 1,000 ML IV SCH (16:57)
[2017-03-28] MEDS ORDERED: HYDROmorphone 2 MG/ML VIAL IV PRN (17:00)
[2017-03-28] MEDS ORDERED: PROCHLORPERAZINE 10 MG/2 ML VIAL. IV PRN (17:00)
[2017-03-28] MEDS ORDERED: MORPHINE SULFATE 2 MG/ML DISP.SYRIN. IV PRN ×2 (17:00→22:30)
[2017-03-28] MEDS ORDERED: LIDOCAINE 1% PF 2 ML VIAL. ID PRN (17:00)
[2017-03-28] MEDS ORDERED: BUPIVAC MPF-EPI 0.5%-1:200000 30 ML VIAL. ONE (17:21)
[2017-03-28] MEDS ORDERED: ROCURONIUM 50 MG/5 ML VIAL. ONE (17:54)
[2017-03-28] MEDS ORDERED: fentaNYL PF VIAL 250 MCG/5 ML VIAL ONE (17:54)
[2017-03-28] MEDS ORDERED: LIDOCAINE 2% PF Vial for OR 5 ML VIAL. ONE (17:55)
[2017-03-28] MEDS ORDERED: DESFLURANE > 120 MINUTES IH ONE (17:55)
[2017-03-28] MEDS ORDERED: DEXAMETHASONE SOD PHOS 20 MG/5 ML VIAL. ONE (17:55)
[2017-03-28] MEDS ORDERED: PROPOFOL 20 ML IV ONE (17:55)
[2017-03-28] MEDS ORDERED: ONDANSETRON PF 4 MG/2 ML VIAL. ONE (17:55)
[2017-03-28] MEDS ORDERED: PHENYLEPHRINE 10 MG/ML VIAL. ONE ×3 (17:55→17:59)
--- NOTE | 2017-03-28 18:34 | PDOC2 ---
CONSULT Date of Consult Date of Consult DATE: 03/28/17 TIME: 18:26 Identification/Chief Complaint Chief Complaint Bilateral leg fractures Problems: Source Source: Chart review, Patient History of Present Illness Reason for Visit: This 71-year-old woman with multiple medical problems including severe COPD on oxygen, and end-stage renal disease on dialysis fell at home today. She had an open left tib-fib fracture and a closed right supracondylar femur fracture above her total knee arthroplasty. She lives at home and normally uses a walker , and can barely ambulate. She is a DNR. She has severe pain now, in bilateral legs, and the right leg is in an awkward position. She has a laceration at the left tib-fib fracture. Past Medical History Cardiovascular: CAD, CHF, HTN, Hyperlipidemia Pulmonary: COPD CENTRAL NERVOUS SYSTEM: Other GI: GERD, Other Heme/Onc: Anemia NOS Hepatobiliary: No pertinent hx Psych: Anxiety Musculoskeletal: Osteoarthritis Rheumatologic: No pertinent hx Infectious disease: No pertinent hx Renal/: Chronic renal failure, UTI Endocrine: No pertinent hx Past Surgical History Past Surgical History: CABG, Total knee replacement, Tubal Ligation, Other Family History Family History: Coronary Artery Disease Social History No ALCOHOL: none Drugs: None Lives: with Family Domestic Violence: Neg Current Problem List Problem List Problems Medical Problems: (1) Femur fracture, right Status: Acute (2) Open fibular fracture Status: Acute Current Medications Current Medications Current Medications Fentanyl Citrate (Fentanyl 2ml Vial) 50 mcg 1X ONCE IV ; Start 03/28/17 at 11: 45; Stop 03/28/17 at 11:46; Status DC Cefazolin Sodium/ Dextrose 50 ml @ 100 mls/hr 1X ONCE IV ; Start 03/28/17 at 12:30; Stop 03/28/17 at 12:59; Status DC Diphtheria/ Tetanus/Acell Pertussis (Boostrix) 0.5 ml ONCE ONCE VAX IM Last administered on 03/28/17 15:57; Start 03/28/17 at 13:00; Stop 03/28/17 at 13:01 ; Status DC Sodium Chloride 1,000 ml @ 75 mls/hr [id number] IV Last administered on 15:48; Start 03/28/17 at 13:00 Morphine Sulfate 2 mg PRN Q2HR PRN IV PAIN Last administered on 12/5/17at 15:50 ; Start 03/28/17 at 13:00; Stop 03/29/17 at 12:59 Ropivacaine 53.3 ml/Epinephrine HCl 0.6 mg/ Morphine Sulfate 5 mg/Sodium Chloride 100 ml @ 100 mls/hr 1X ONCE INT ART ; Start 03/28/17 at 13:00; Stop 03/28/17 at 13:59; Status DC Ondansetron HCl (Zofran) 4 mg PRN Q6HRS PRN IV NAUSEA/VOMITING; Start 03/28/17 at 14:30 Acetaminophen (Tylenol) 650 mg PRN Q6HRS PRN PO pain; Start 03/28/17 at 14:30 Fentanyl Citrate (Fentanyl 2ml Vial) 50 mcg PRN Q2HR PRN IV PAIN; Start at 14:30 Ondansetron HCl (Zofran) 4 mg PRN Q6HRS PRN IV NAUSEA/VOMITING; Start 03/28/17 at 17:00; Stop 03/29/17 at 16:59 Fentanyl Citrate (Fentanyl 2ml Vial) 25 mcg PRN Q5MIN PRN IV MILD PAIN; Start 03/28/17 at 17:00; Stop 03/29/17 at 16:59 Fentanyl Citrate (Fentanyl 2ml Vial) 50 mcg PRN Q5MIN PRN IV MODERATE PAIN; Start 03/28/17 at 17:00; Stop 03/29/17 at 16:59 Morphine Sulfate 1 mg PRN Q10MIN PRN IV SEVERE PAIN; Start 03/28/17 at 17:00; Stop 03/29/17 at 16:59 Ringer's Solution 1,000 ml @ 30 mls/hr Q24H IV ; Start 03/28/17 at 16:57; Stop 03/29/17 at 04:56 Lidocaine HCl (Xylocaine-Mpf 1% Vial) 2 ml 1X PRN PRN ID IV START; Start at 17:00; Stop 03/29/17 at 16:59 Hydromorphone HCl (Dilaudid) 0.5 mg PRN Q10MIN PRN IV SEV PAIN, Second choice; Start 03/28/17 at 17:00; Stop 03/29/17 at 16:59 Prochlorperazine Edisylate (Compazine) 5 mg PACU PRN PRN IV NAUSEA, MRX1; Start 03/28/17 at 17:00; Stop 03/29/17 at 16:59 Bupivacaine HCl/ Epinephrine Bitart (Sensorcain-Mpf Epi 0.5%-1:[id number]) 30 ml STK -MED ONCE .ROUTE ; Start 03/28/17 at 17:21; Stop 03/28/17 at 17:22; Status DC Rocuronium Charlotte (Zemuron) 50 mg STK-MED ONCE .ROUTE ; Start 03/28/17 at 17:54 ; Stop 03/28/17 at 17:55; Status DC Fentanyl Citrate (Fentanyl 5ml Vial) 250 mcg STK-MED ONCE .ROUTE ; Start at 17:54; Stop 03/28/17 at 17:55; Status DC Desflurane (Suprane) 90 ml STK-MED ONCE IH ; Start 03/28/17 at 17:55; Stop 03/28 at 17:56; Status DC Propofol 20 ml @ As Directed STK-MED ONCE IV ; Start 03/28/17 at 17:55; Stop at 17:56; Status DC Dexamethasone Sodium Phosphate (Decadron) 20 mg STK-MED ONCE .ROUTE ; Start 03/28/17 at 17:55; Stop 03/28/17 at 17:56; Status DC Lidocaine HCl (Lidocaine Pf 2% Vial) 5 ml STK-MED ONCE .ROUTE ; Start 03/28/17 at 17:55; Stop 03/28/17 at 17:56; Status DC Ondansetron HCl (Zofran) 4 mg STK-MED ONCE .ROUTE ; Start 03/28/17 at 17:55; Stop 03/28/17 at 17:56; Status DC Phenylephrine HCl (Blas-Synephrine Inj) 10 mg STK-MED ONCE .ROUTE ; Start at 17:55; Stop 03/28/17 at 17:56; Status DC Phenylephrine HCl (Blas-Synephrine Inj) 10 mg STK-MED ONCE .ROUTE ; Start at 17:55; Stop 03/28/17 at 17:56; Status DC Phenylephrine HCl (Blas-Synephrine Inj) 10 mg STK-MED ONCE .ROUTE ; Start at 17:59; Stop 03/28/17 at 18:00; Status DC Cefazolin Sodium 50 ml @ 100 mls/hr 1X ONCE IV ; Start 03/28/17 at 18:15; Stop 03/28/17 at 18:44 Active Scripts Active Probiotic (Lactobacillus Acidophilus) 1 Each Capsule 1 Each PO BID Keflex (Cephalexin) 250 Mg Capsule 1 Cap PO AFTER DIALYSIS Furosemide 80 Mg Tablet 80 Mg PO DAILY Cozaar (Losartan Potassium) 50 Mg Tablet 100 Mg PO DAILY 30 Days Reported [lidoderm ] 2 Patch TD DAILY [facility] Rx Tablet (Vit B Cmplx 3/Fa/Vit C/Biotin) 1 Each Tablet 1 Each PO 3X/ WEEK [facility] Tablet (Folic Acid/Vitamin B Comp W-C) 0.8 Mg Tablet 0.8 Mg PO Calcium 500 + D Tablet (Calcium Carbonate/Vitamin D3) 1 Each Tablet 500 Each PO BID Vitamin D3 (Cholecalciferol (Vitamin D3)) 1,000 Unit Tablet 2 Tab PO HS Escitalopram Oxalate 10 Mg Tablet 10 Mg PO DAILY Zocor (Simvastatin) 20 Mg Tablet 20 Mg PO HS Hydrocodone-Apap 7.5-325 (Hydrocodone Bit/Acetaminophen) 1 Each Tablet 1 Each PO PRN Q8HRS Lofibra (Fenofibrate,Micronized) 134 Mg Capsule 145 Mg PO DAILY Coreg (Carvedilol) 6.25 Mg Tablet 6.25 Mg PO BID Aspir 81 (Aspirin) 81 Mg Tablet.dr 81 Mg PO DAILY Albuterol Sulfate Hfa Inhaler (Albuterol Sulfate) 8.5 Gm Hfa.aer.ad 8.5 Gm IH PRN Q4HRS Allergies Allergies: Coded Allergies: quinine (Verified Allergy, Severe, Anaphylaxis, 03/28/17) ROS General: YES: Fatigue PSYCHOLOGICAL ROS: YES: Anxiety HEENT: No: Nasal congestion Hematological and Lymphatic: No: Blood Clots Respiratory: YES: Shortness of breath, SOB with excertion Cardiovascular: No Chest Pain Gastrointestinal: No Vomiting, No Abdominal Pain Genitourinary: YES Other (still produces urine about 3-4 times a day, despite ESRD and dialysis) Musculoskeletal: Yes Gait Disturbance, Yes Joint Pain, Yes Muscular Weakness Neurological: Yes Gait Disturbance Physical Exam Physical Exam I reviewed her prior records with us. She had a closed right tib-fib fracture in 2010, that took a long time to heal, still had pain and ultimately underwent the total knee replacement. She saw Dr. Carbone in our office remotely, and Dr. Clark did her knee replacement surgery and care of the right tibia fracture. I reviewed the old x-rays and the office notes and the operative note. General: Cooperative, mild distress HEENT: Atraumatic Lungs: Other (poor air movement,) Heart: Regular rate ( on nasal oxygen) Abdomen: Soft Extremities: Other (the right leg is splinted. It is malaligned. She has intact sensation of the toes. Capillary refill is normal. She is able to dorsiflex and plantarflex the toes.) Skin: Other (laceration of the left leg near the tibia fracture) Neuro: Normal speech, Sensation intact Psych/Mental Status: Mood NL MUSCULOSKELETAL: Abnormal exam of right (the right upper extremity shows dramatic weakness, and she has a shunt there and says that she has nerve damage related to the shunt placement. The left upper extremity seems normal.), Abnormal exam of left (the left lower extremity is in a splint. There is a reported laceration. She has intact sensation at the left toes, and can dorsiflex and plantarflex the toes.) Vitals VITALS Vital Signs Date Time Temp Pulse Resp B/P (MAP) Pulse Ox O2 Delivery O2 Flow Rate FiO2 03/28/17 17:07 97.1 78 18 137/57 96 Nasal Cannula 2 97.1 Labs Labs Laboratory Tests Test 03/28/17 13:00 White Blood Count 12.1 x10^3/uL (4.0-11.0) Red Blood Count 2.29 x10^6/uL (3.50-5.40) Hemoglobin 8.0 g/dL (12.0-15.5) Hematocrit 25.5 % (36.0-47.0) Mean Corpuscular Volume 112 fL (79-100) Mean Corpuscular Hemoglobin 35 pg (25-35) Mean Corpuscular Hemoglobin Concent 32 g/dL (31-37) Red Cell Distribution Width 15.1 % (11.5-14.5) Platelet Count 178 x10^3/uL (140-400) Neutrophils (%) (Auto) 88 % (31-73) Lymphocytes (%) (Auto) 5 % (24-48) Monocytes (%) (Auto) 4 % (0-9) Eosinophils (%) (Auto) 3 % (0-3) Basophils (%) (Auto) 0 % (0-3) Neutrophils # (Auto) 10.6 x10^3uL (1.8-7.7) Lymphocytes # (Auto) 0.6 x10^3/uL (1.0-4.8) Monocytes # (Auto) 0.5 x10^3/uL (0.0-1.1) Eosinophils # (Auto) 0.4 x10^3/uL (0.0-0.7) Basophils # (Auto) 0.1 x10^3/uL (0.0-0.2) Segmented Neutrophils % 83 % (35-66) Band Neutrophils % 6 % (0-9) Lymphocytes % 4 % (24-48) Monocytes % 6 % (0-10) Basophils % 1 % (0-3) Platelet Estimate Adequate (ADEQUATE) Polychromasia Slight Macrocytosis Mod Ovalocytes Few Prothrombin Time 14.6 SEC (11.7-14.0) Prothromb Time International Ratio 1.2 (0.8-1.1) Sodium Level 136 mmol/L (136-145) Potassium Level 4.0 mmol/L (3.5-5.1) Chloride Level 101 mmol/L (98-107) Carbon Dioxide Level 35 mmol/L (21-32) Anion Gap 0 (6-14) Blood Urea Nitrogen 19 mg/dL (7-20) Creatinine 1.7 mg/dL (0.6-1.0) Estimated GFR (Cockcroft-Gault) 29.5 Glucose Level 143 mg/dL (70-99) Calcium Level 8.8 mg/dL (8.5-10.1) Laboratory Tests Test 03/28/17 13:00 White Blood Count 12.1 x10^3/uL (4.0-11.0) Red Blood Count 2.29 x10^6/uL (3.50-5.40) Hemoglobin 8.0 g/dL (12.0-15.5) Hematocrit 25.5 % (36.0-47.0) Mean Corpuscular Volume 112 fL (79-100) Mean Corpuscular Hemoglobin 35 pg (25-35) Mean Corpuscular Hemoglobin Concent 32 g/dL (31-37) Red Cell Distribution Width 15.1 % (11.5-14.5) Platelet Count 178 x10^3/uL (140-400) Neutrophils (%) (Auto) 88 % (31-73) Lymphocytes (%) (Auto) 5 % (24-48) Monocytes (%) (Auto) 4 % (0-9) Eosinophils (%) (Auto) 3 % (0-3) Basophils (%) (Auto) 0 % (0-3) Neutrophils # (Auto) 10.6 x10^3uL (1.8-7.7) Lymphocytes # (Auto) 0.6 x10^3/uL (1.0-4.8) Monocytes # (Auto) 0.5 x10^3/uL (0.0-1.1) Eosinophils # (Auto) 0.4 x10^3/uL (0.0-0.7) Basophils # (Auto) 0.1 x10^3/uL (0.0-0.2) Segmented Neutrophils % 83 % (35-66) Band Neutrophils % 6 % (0-9) Lymphocytes % 4 % (24-48) Monocytes % 6 % (0-10) Basophils % 1 % (0-3) Platelet Estimate Adequate (ADEQUATE) Polychromasia Slight Macrocytosis Mod Ovalocytes Few Prothrombin Time 14.6 SEC (11.7-14.0) Prothromb Time International Ratio 1.2 (0.8-1.1) Sodium Level 136 mmol/L (136-145) Potassium Level 4.0 mmol/L (3.5-5.1) Chloride Level 101 mmol/L (98-107) Carbon Dioxide Level 35 mmol/L (21-32) Anion Gap 0 (6-14) Blood Urea Nitrogen 19 mg/dL (7-20) Creatinine 1.7 mg/dL (0.6-1.0) Estimated GFR (Cockcroft-Gault) 29.5 Glucose Level 143 mg/dL (70-99) Calcium Level 8.8 mg/dL (8.5-10.1) Images Images I reviewed the current x-rays and the CT scan. There is a fracture of the proximal tibia and fibula which are essentially nondisplaced. There is a displaced fracture of the right supracondylar femur above a total knee. There is a long stem tibial component and a short stem femoral revision component. The revision stem is protruding outside of the femoral canal due to the significant displacement. There is marked malalignment and some comminution. Assessment/Plan Assessment/Plan Open left tib-fib fracture. Closed right supracondylar femur fracture above a total knee. End stage renal disease. Severe lung disease. She lives at home and barely ambulates. We talked about options for treatment. Nonoperative treatment such as bedrest is not recommended due to the high risk of complications and likely she would not survive with that sort of treatment. She is high risk for surgery due to the underlying diseases such as her previous coronary artery bypass surgery, the severe lung disease on oxygen, and the end-stage renal disease on dialysis. She has high risks of blood clots, prolonged extubation, infection, delayed healing, malunion or nonunion. When she had her coronary artery bypass surgery she was intubated for a day and a half. End-stage renal disease delays bone healing and is higher risk for infection. The lung disease is high risk for delayed healing. She has multiple reasons to have DVT including bilateral fractures, immobility, multiple surgeries, and the other medical diseases which raises her risk. We discussed the potential risks of surgery including risks of infection malunion nonunion blood clots or even . Despite the risks of surgery think surgery will be safe for her than nonsurgical options, and will allow her to be more comfortable. It gives her the best chance of being able to ambulate in the future, and certainly makes her care more simple even if she remains in bed, and she will be easier to transfer, perform hygiene etc. She and her family stated understanding of the risks benefits and alternatives and desired to proceed with irrigation and debridement of the left open fracture with open treatment and internal fixation of the proximal tibia fracture. They agree and want to proceed also with the right supracondylar femur open treatment with internal fixation. All of their questions were answered. Both surgical extremities were marked by me. UMESH VANG MD Mar 28, 2017 18:34
[2017-03-28] MEDS ORDERED: ePHEDrine PF IN SALINE 50 MG/5 ML DISP.SYRIN IV ONE (18:37)
[2017-03-28] MEDS ORDERED: ALBUMIN HUMAN 5% 500 ML IV ONE (20:13)
[2017-03-28] MEDS ORDERED: NEOSTIGMINE 10 MG/10 ML VIAL. ONE (21:26)
[2017-03-28] MEDS ORDERED: GLYCOPYRROLATE 1 MG/5 ML VIAL. ONE (21:26)
[2017-03-28 22:30] VITALS: BP 85/74
[2017-03-28] MEDS ORDERED: HYDROcodone/APAP 7.5/325MG 1 TAB TABLET PO PRN ×2 (22:30)
[2017-03-28] MEDS ORDERED: DEXTROSE 50% 25 GM / 50ML DISP.SYRIN. IV PRN (22:30)
[2017-03-28] MEDS ORDERED: PHENYLEPHRINE INJ 80 MG in IV NORMAL SALINE 250ML 250 ML IV PRN (22:30)
[2017-03-28] MEDS ORDERED: oxyCODONE IR 5 MG TABLET PO PRN (22:30)
[2017-03-28] MEDS ORDERED: MORPHINE SULFATE 4 MG/ML DISP.SYRIN. IV PRN (22:30)
[2017-03-28] MEDS ORDERED: POLYETHYLENE GLYCOL 3350 17 GM PACKET. PO PRN (22:30)
--- NOTE | 2017-03-28 22:37 | PDOC ---
BRIEF OPERATIVE NOTE Date: Mar 28, 2017 Pre-Op Diagnosis open left tibia and fibula fracture closed supracondylar femur fracture above a total knee arthroplasty Post-Op Diagnosis same Procedure Performed irrigation and debridement for open fracture including skin, subcutaneous tissue and bone open treatment and internal fixation of left tibia fracture with plate and screw fixation open treatment and internal fixation of right femur fracture with plate and screw fixation involving the total knee arthroplasty Surgeon [employer] Director Jarrell [employer]INGS Anesthesiologist Isamar Anesthesia Type: General Blood Loss estimated 400 mL IV Fluid 1600 NS 500 albumin 1 unit PRBCs Urine Output 40 mL lund (patient has ESRD but produces some urine) Specimens Obtained none Findings severe open left tibia fracture most likely Gustilo grade IIIA with extensive soft tissue laceration/exposed bone greater than 10 cm (approx 18 cm), perhaps Gustilo grade IIIB if flap coverage is ultimately required (plan for wound VAC only at this time) very poor tissue and bone quality of both lower extremities tourniquet time left leg 38 minutes wound VAC applied to left leg due to inadequate soft tissue coverage Complications none Operative Note dictation to follow UMESH VANG MD Mar 28, 2017 22:37
[2017-03-28] MEDS ORDERED: MIDAZOLAM 100MG/100ML PREMIX 100 ML IV PRN (22:45)
[2017-03-28 23:00] VITALS: BP 114/42
[2017-03-28] MEDS ORDERED: GENTAMICIN SULFATE IV ONE (23:00)
[2017-03-28] MEDS ORDERED: ceFAZolin SODIUM 1 GM in IV DEXTROSE 5% 50 ML IV SCH (23:00)
[2017-03-28] MEDS ORDERED: DEXTROSE 5% IV ONE (23:00)
[2017-03-28] MEDS ORDERED: GENTAMICIN SULFATE 80 MG in IV NORMAL SALINE 100ML 100 ML IV ONE (23:00)
[2017-03-28 23:30] VITALS: BP 135/40
[2017-03-28 23:30] LABS: RED BLOOD COUNT 1.58 x10^6/uL (3.50-5.40); RED CELL DISTRIBUTION WIDTH 23.8 % (11.5-14.5); WHITE BLOOD COUNT 21.6 x10^3/uL (4.0-11.0)
[2017-03-28 23:34] LABS: HEMATOCRIT 16.1 % (36.0-47.0); HEMOGLOBIN 5.1 g/dL (12.0-15.5)
[2017-03-28 23:37] LABS: HCO3 ABG 27 mmol/L (21-28); PO2 ABG 431 mmHg (65-108); SAT O2 ABG 99 % (92-99)
[2017-03-28 23:39] LABS: PH ABG 7.45 (7.35-7.45)
[2017-03-28 23:40] LABS: FIO2 ABG 100; PCO2 ABG 40 mmHg (35-46)
[2017-03-28 23:45] VITALS: BP 102/66
[2017-03-29] VITALS (41 sets, daily range): BP systolic 53–268; BP diastolic 25–120
--- NOTE | 2017-03-29 02:35 | RAD ---
INDICATION: soa; also ng placement COMPARISON: None. FINDINGS: Single view of chest obtained. Endotracheal tube midthoracic trachea. Enteric tube seen coursing below the diaphragm and coiled within the expected periportal or region Hypoexpanded exam of the lungs with coarsened lung markings bilaterally with interstitial prominence. Elevation of right hemidiaphragm versus effusion in the region. Linear opacity right lung base. Calcified nodules. IMPRESSION: Lines and tubes as above. Coarsened lung markings throughout the bilateral lungs. Although portion this could be from chronic lung disease superimposed edema or interstitial infiltrate is possible. Electronically signed by: Cristo Goel MD (03/29/2017 2:32 AM) [id number]
[2017-03-29] MEDS ORDERED: MAGNESIUM HYDROXIDE 2,400 MG/30 ML ORAL.SUSP. PO PRN (06:00)
[2017-03-29 06:34] LABS: BASO # 0.2 x10^3/uL (0.0-0.2); BASO % 1 % (0-3); EOS % 0 % (0-3); HEMATOCRIT 35.3 % (36.0-47.0); HEMOGLOBIN 11.5 g/dL (12.0-15.5); LYMPH # 2.8 x10^3/uL (1.0-4.8); LYMPH % 8 % (24-48); MEAN CORPUSCULAR HEMOGLOBIN 31 pg (25-35); MEAN CORPUSCULAR HGB CONC 33 g/dL (31-37); MEAN CORPUSCULAR VOLUME 96 fL (79-100); MONO % 5 % (0-9); NEUT % 87 % (31-73); PLATELET COUNT 120 x10^3/uL (140-400); RED BLOOD COUNT 3.69 x10^6/uL (3.50-5.40); WHITE BLOOD COUNT 36.9 x10^3/uL (4.0-11.0)
[2017-03-29 06:49] LABS: CALCIUM 7.5 mg/dL (8.5-10.1); CREATININE 1.9 mg/dL (0.6-1.0); POTASSIUM 5.7 mmol/L (3.5-5.1)
[2017-03-29 08:20] LABS: PLT ESTIMATE ADEQUATE (ADEQUATE)
[2017-03-29] MEDS ORDERED: ENOXAPARIN 30 MG/0.3 ML SYRINGE. SQ SCH ×2 (09:00)
[2017-03-29] MEDS ORDERED: SENNOSIDES/DOCUSATE 8.6/50MG TABLET. PO SCH (09:00)
[2017-03-29] MEDS ORDERED: ASPIRIN ENTERIC COATED 81 MG TABLET.DR. PO SCH (09:00)
--- NOTE | 2017-03-29 09:12 | PDOC ---
PROGRESS NOTES History of Present Illness History of Present Illness Past Surgical History Past Surgical History: CABG, Total knee replacement, Tubal Ligation, Other Family History Family History: Coronary Artery Disease Social History No ALCOHOL: none Drugs: None Lives: with Family Vitals Vitals Vital Signs Date Time Temp Pulse Resp B/P (MAP) Pulse Ox O2 Delivery O2 Flow Rate FiO2 03/29/17 09:00 70 24 108/50 (69) 100 Ventilator 03/29/17 08:00 98.0 98.0 03/28/17 17:07 2 Physical Exam General: Cooperative, mild distress Heart: Regular rate ( on nasal oxygen) Lungs: Clear Abdomen: Soft Extremities: Other (the right leg is splinted. It is malaligned. She has intact sensation of the toes. Capillary refill is normal. She is able to dorsiflex and plantarflex the toes.) Skin: Other (laceration of the left leg near the tibia fracture) Labs LABS INDICATION: soa; also ng placement COMPARISON: None. FINDINGS: Single view of chest obtained. Endotracheal tube midthoracic trachea. Enteric tube seen coursing below the diaphragm and coiled within the expected periportal or region Hypoexpanded exam of the lungs with coarsened lung markings bilaterally with interstitial prominence. Elevation of right hemidiaphragm versus effusion in the region. Linear opacity right lung base. Calcified nodules. IMPRESSION: Lines and tubes as above. Coarsened lung markings throughout the bilateral lungs. Although portion this could be from chronic lung disease superimposed edema or interstitial infiltrate is possible. Electronically signed by: Cristo Goel MD (03/29/2017 2:32 AM) [facility] Laboratory Tests Test 03/28/17 13:00 03/28/17 23:20 03/28/17 23:30 03/29/17 05:40 White Blood Count 12.1 x10^3/uL (4.0-11.0) 21.6 x10^3/uL (4.0-11.0) 36.9 x10^3/uL (4.0-11.0) Red Blood Count 2.29 x10^6/uL (3.50-5.40) 1.58 x10^6/uL (3.50-5.40) 3.69 x10^6/uL (3.50-5.40) Hemoglobin 8.0 g/dL (12.0-15.5) 5.1 g/dL (12.0-15.5) 11.5 g/dL (12.0-15.5) Hematocrit 25.5 % (36.0-47.0) 16.1 % (36.0-47.0) 35.3 % (36.0-47.0) Mean Corpuscular Volume 112 fL (79-100) 102 fL (79-100) 96 fL (79-100) Mean Corpuscular Hemoglobin 35 pg (25-35) 32 pg (25-35) 31 pg (25-35) Mean Corpuscular Hemoglobin Concent 32 g/dL (31-37) 32 g/dL (31-37) 33 g/dL (31-37) Red Cell Distribution Width 15.1 % (11.5-14.5) 23.8 % (11.5-14.5) 17.0 % (11.5-14.5) Platelet Count 178 x10^3/uL (140-400) 160 x10^3/uL (140-400) 120 x10^3/uL (140-400) Neutrophils (%) (Auto) 88 % (31-73) 87 % (31-73) Lymphocytes (%) (Auto) 5 % (24-48) 8 % (24-48) Monocytes (%) (Auto) 4 % (0-9) 5 % (0-9) Eosinophils (%) (Auto) 3 % (0-3) 0 % (0-3) Basophils (%) (Auto) 0 % (0-3) 1 % (0-3) Neutrophils # (Auto) 10.6 x10^3uL (1.8-7.7) 32.0 x10^3uL (1.8-7.7) Lymphocytes # (Auto) 0.6 x10^3/uL (1.0-4.8) 2.8 x10^3/uL (1.0-4.8) Monocytes # (Auto) 0.5 x10^3/uL (0.0-1.1) 2.0 x10^3/uL (0.0-1.1) Eosinophils # (Auto) 0.4 x10^3/uL (0.0-0.7) 0.0 x10^3/uL (0.0-0.7) Basophils # (Auto) 0.1 x10^3/uL (0.0-0.2) 0.2 x10^3/uL (0.0-0.2) Segmented Neutrophils % 83 % (35-66) 90 % (35-66) Band Neutrophils % 6 % (0-9) 5 % (0-9) Lymphocytes % 4 % (24-48) 3 % (24-48) Monocytes % 6 % (0-10) 1 % (0-10) Basophils % 1 % (0-3) Platelet Estimate Adequate (ADEQUATE) Adequate (ADEQUATE) Polychromasia Slight Macrocytosis Mod Ovalocytes Few Prothrombin Time 14.6 SEC (11.7-14.0) Prothromb Time International Ratio 1.2 (0.8-1.1) Sodium Level 136 mmol/L (136-145) 138 mmol/L (136-145) Potassium Level 4.0 mmol/L (3.5-5.1) 5.7 mmol/L (3.5-5.1) Chloride Level 101 mmol/L (98-107) 106 mmol/L (98-107) Carbon Dioxide Level 35 mmol/L (21-32) 21 mmol/L (21-32) Anion Gap 0 (6-14) 11 (6-14) Blood Urea Nitrogen 19 mg/dL (7-20) 25 mg/dL (7-20) Creatinine 1.7 mg/dL (0.6-1.0) 1.9 mg/dL (0.6-1.0) Estimated GFR (Cockcroft-Gault) 29.5 26.0 Glucose Level 143 mg/dL (70-99) 114 mg/dL (70-99) Calcium Level 8.8 mg/dL (8.5-10.1) 7.5 mg/dL (8.5-10.1) O2 Saturation 99 % (92-99) Arterial Blood pH 7.45 (7.35-7.45) Arterial Blood pCO2 at Patient Temp 40 mmHg (35-46) Arterial Blood pO2 at Patient Temp 431 mmHg (65-108) Arterial Blood HCO3 27 mmol/L (21-28) Arterial Blood Base Excess 3 mmol/L (-3-3) FiO2 100 Myelocytes % 1 % (0-0) Assessment and Plan Assessmemt and Plan Problems Medical Problems: (1) Femur fracture, right Status: Acute (2) Open fibular fracture Status: Acute Assessment/Plan Assessment/Plan Distal right femoral fracture Open proximal tib-fib fracture left Mechanical fall at home CAD, history of CABG Geriatric, high fall risk [id number] PCN ESRD on hemodialysis Monday did not miss any session History of osteoporosis DNR/DNI plan of care: IVF support Dr. Haji following Consult renal for dialysis Dialysis prerenal Check vitamin D levels Check postop labs, follow Continue IVF CHK LACTIC ACID, BLOOD CULT X 2, UA, CULTURE ID CONSULT CARDIOLOGY CONSULT ECHO Problems: Comment Review of Relevant I have reviewed the following items scott (where applicable) has been applied. Labs Laboratory Tests Test 03/28/17 13:00 03/28/17 23:20 03/28/17 23:30 03/29/17 05:40 White Blood Count 12.1 x10^3/uL (4.0-11.0) 21.6 x10^3/uL (4.0-11.0) 36.9 x10^3/uL (4.0-11.0) Red Blood Count 2.29 x10^6/uL (3.50-5.40) 1.58 x10^6/uL (3.50-5.40) 3.69 x10^6/uL (3.50-5.40) Hemoglobin 8.0 g/dL (12.0-15.5) 5.1 g/dL (12.0-15.5) 11.5 g/dL (12.0-15.5) Hematocrit 25.5 % (36.0-47.0) 16.1 % (36.0-47.0) 35.3 % (36.0-47.0) Mean Corpuscular Volume 112 fL (79-100) 102 fL (79-100) 96 fL (79-100) Mean Corpuscular Hemoglobin 35 pg (25-35) 32 pg (25-35) 31 pg (25-35) Mean Corpuscular Hemoglobin Concent 32 g/dL (31-37) 32 g/dL (31-37) 33 g/dL (31-37) Red Cell Distribution Width 15.1 % (11.5-14.5) 23.8 % (11.5-14.5) 17.0 % (11.5-14.5) Platelet Count 178 x10^3/uL (140-400) 160 x10^3/uL (140-400) 120 x10^3/uL (140-400) Neutrophils (%) (Auto) 88 % (31-73) 87 % (31-73) Lymphocytes (%) (Auto) 5 % (24-48) 8 % (24-48) Monocytes (%) (Auto) 4 % (0-9) 5 % (0-9) Eosinophils (%) (Auto) 3 % (0-3) 0 % (0-3) Basophils (%) (Auto) 0 % (0-3) 1 % (0-3) Neutrophils # (Auto) 10.6 x10^3uL (1.8-7.7) 32.0 x10^3uL (1.8-7.7) Lymphocytes # (Auto) 0.6 x10^3/uL (1.0-4.8) 2.8 x10^3/uL (1.0-4.8) Monocytes # (Auto) 0.5 x10^3/uL (0.0-1.1) 2.0 x10^3/uL (0.0-1.1) Eosinophils # (Auto) 0.4 x10^3/uL (0.0-0.7) 0.0 x10^3/uL (0.0-0.7) Basophils # (Auto) 0.1 x10^3/uL (0.0-0.2) 0.2 x10^3/uL (0.0-0.2) Segmented Neutrophils % 83 % (35-66) 90 % (35-66) Band Neutrophils % 6 % (0-9) 5 % (0-9) Lymphocytes % 4 % (24-48) 3 % (24-48) Monocytes % 6 % (0-10) 1 % (0-10) Basophils % 1 % (0-3) Platelet Estimate Adequate (ADEQUATE) Adequate (ADEQUATE) Polychromasia Slight Macrocytosis Mod Ovalocytes Few Prothrombin Time 14.6 SEC (11.7-14.0) Prothromb Time International Ratio 1.2 (0.8-1.1) Sodium Level 136 mmol/L (136-145) 138 mmol/L (136-145) Potassium Level 4.0 mmol/L (3.5-5.1) 5.7 mmol/L (3.5-5.1) Chloride Level 101 mmol/L (98-107) 106 mmol/L (98-107) Carbon Dioxide Level 35 mmol/L (21-32) 21 mmol/L (21-32) Anion Gap 0 (6-14) 11 (6-14) Blood Urea Nitrogen 19 mg/dL (7-20) 25 mg/dL (7-20) Creatinine 1.7 mg/dL (0.6-1.0) 1.9 mg/dL (0.6-1.0) Estimated GFR (Cockcroft-Gault) 29.5 26.0 Glucose Level 143 mg/dL (70-99) 114 mg/dL (70-99) Calcium Level 8.8 mg/dL (8.5-10.1) 7.5 mg/dL (8.5-10.1) O2 Saturation 99 % (92-99) Arterial Blood pH 7.45 (7.35-7.45) Arterial Blood pCO2 at Patient Temp 40 mmHg (35-46) Arterial Blood pO2 at Patient Temp 431 mmHg (65-108) Arterial Blood HCO3 27 mmol/L (21-28) Arterial Blood Base Excess 3 mmol/L (-3-3) FiO2 100 Myelocytes % 1 % (0-0) Laboratory Tests Test 03/28/17 13:00 03/28/17 23:20 03/28/17 23:30 03/29/17 05:40 White Blood Count 12.1 x10^3/uL (4.0-11.0) 21.6 x10^3/uL (4.0-11.0) 36.9 x10^3/uL (4.0-11.0) Red Blood Count 2.29 x10^6/uL (3.50-5.40) 1.58 x10^6/uL (3.50-5.40) 3.69 x10^6/uL (3.50-5.40) Hemoglobin 8.0 g/dL (12.0-15.5) 5.1 g/dL (12.0-15.5) 11.5 g/dL (12.0-15.5) Hematocrit 25.5 % (36.0-47.0) 16.1 % (36.0-47.0) 35.3 % (36.0-47.0) Mean Corpuscular Volume 112 fL (79-100) 102 fL (79-100) 96 fL (79-100) Mean Corpuscular Hemoglobin 35 pg (25-35) 32 pg (25-35) 31 pg (25-35) Mean Corpuscular Hemoglobin Concent 32 g/dL (31-37) 32 g/dL (31-37) 33 g/dL (31-37) Red Cell Distribution Width 15.1 % (11.5-14.5) 23.8 % (11.5-14.5) 17.0 % (11.5-14.5) Platelet Count 178 x10^3/uL (140-400) 160 x10^3/uL (140-400) 120 x10^3/uL (140-400) Neutrophils (%) (Auto) 88 % (31-73) 87 % (31-73) Lymphocytes (%) (Auto) 5 % (24-48) 8 % (24-48) Monocytes (%) (Auto) 4 % (0-9) 5 % (0-9) Eosinophils (%) (Auto) 3 % (0-3) 0 % (0-3) Basophils (%) (Auto) 0 % (0-3) 1 % (0-3) Neutrophils # (Auto) 10.6 x10^3uL (1.8-7.7) 32.0 x10^3uL (1.8-7.7) Lymphocytes # (Auto) 0.6 x10^3/uL (1.0-4.8) 2.8 x10^3/uL (1.0-4.8) Monocytes # (Auto) 0.5 x10^3/uL (0.0-1.1) 2.0 x10^3/uL (0.0-1.1) Eosinophils # (Auto) 0.4 x10^3/uL (0.0-0.7) 0.0 x10^3/uL (0.0-0.7) Basophils # (Auto) 0.1 x10^3/uL (0.0-0.2) 0.2 x10^3/uL (0.0-0.2) Segmented Neutrophils % 83 % (35-66) 90 % (35-66) Band Neutrophils % 6 % (0-9) 5 % (0-9) Lymphocytes % 4 % (24-48) 3 % (24-48) Monocytes % 6 % (0-10) 1 % (0-10) Basophils % 1 % (0-3) Platelet Estimate Adequate (ADEQUATE) Adequate (ADEQUATE) Polychromasia Slight Macrocytosis Mod Ovalocytes Few Prothrombin Time 14.6 SEC (11.7-14.0) Prothromb Time International Ratio 1.2 (0.8-1.1) Sodium Level 136 mmol/L (136-145) 138 mmol/L (136-145) Potassium Level 4.0 mmol/L (3.5-5.1) 5.7 mmol/L (3.5-5.1) Chloride Level 101 mmol/L (98-107) 106 mmol/L (98-107) Carbon Dioxide Level 35 mmol/L (21-32) 21 mmol/L (21-32) Anion Gap 0 (6-14) 11 (6-14) Blood Urea Nitrogen 19 mg/dL (7-20) 25 mg/dL (7-20) Creatinine 1.7 mg/dL (0.6-1.0) 1.9 mg/dL (0.6-1.0) Estimated GFR (Cockcroft-Gault) 29.5 26.0 Glucose Level 143 mg/dL (70-99) 114 mg/dL (70-99) Calcium Level 8.8 mg/dL (8.5-10.1) 7.5 mg/dL (8.5-10.1) O2 Saturation 99 % (92-99) Arterial Blood pH 7.45 (7.35-7.45) Arterial Blood pCO2 at Patient Temp 40 mmHg (35-46) Arterial Blood pO2 at Patient Temp 431 mmHg (65-108) Arterial Blood HCO3 27 mmol/L (21-28) Arterial Blood Base Excess 3 mmol/L (-3-3) FiO2 100 Myelocytes % 1 % (0-0) Medications Current Medications Fentanyl Citrate (Fentanyl 2ml Vial) 50 mcg 1X ONCE IV ; Start 03/28/17 at 11: 45; Stop 03/28/17 at 11:46; Status DC Cefazolin Sodium/ Dextrose 50 ml @ 100 mls/hr 1X ONCE IV ; Start 03/28/17 at 12:30; Stop 03/28/17 at 12:59; Status DC Diphtheria/ Tetanus/Acell Pertussis (Boostrix) 0.5 ml ONCE ONCE VAX IM Last administered on 03/28/17 15:57; Start 03/28/17 at 13:00; Stop 03/28/17 at 13:01 ; Status DC Sodium Chloride 1,000 ml @ 75 mls/hr [id number] IV Last administered on 15:48; Start 03/28/17 at 13:00; Stop 03/28/17 at 22:49; Status DC Morphine Sulfate 2 mg PRN Q2HR PRN IV PAIN Last administered on 03/28/17 15:50 ; Start 03/28/17 at 13:00; Stop 03/29/17 at 12:59 Ropivacaine 53.3 ml/Epinephrine HCl 0.6 mg/ Morphine Sulfate 5 mg/Sodium Chloride 100 ml @ 100 mls/hr 1X ONCE INT ART ; Start 03/28/17 at 13:00; Stop 03/28/17 at 13:59; Status DC Ondansetron HCl (Zofran) 4 mg PRN Q6HRS PRN IV NAUSEA/VOMITING; Start 03/28/17 at 14:30; Stop 03/28/17 at 22:48; Status DC Acetaminophen (Tylenol) 650 mg PRN Q6HRS PRN PO pain; Start 03/28/17 at 14:30 Fentanyl Citrate (Fentanyl 2ml Vial) 50 mcg PRN Q2HR PRN IV PAIN Last administered on 03/28/17 22:45; Start 03/28/17 at 14:30 Ondansetron HCl (Zofran) 4 mg PRN Q6HRS PRN IV NAUSEA/VOMITING; Start 03/28/17 at 17:00; Stop 03/28/17 at 22:48; Status DC Fentanyl Citrate (Fentanyl 2ml Vial) 25 mcg PRN Q5MIN PRN IV MILD PAIN; Start 03/28/17 at 17:00; Stop 03/28/17 at 22:48; Status DC Fentanyl Citrate (Fentanyl 2ml Vial) 50 mcg PRN Q5MIN PRN IV MODERATE PAIN; Start 03/28/17 at 17:00; Stop 03/28/17 at 22:48; Status DC Morphine Sulfate 1 mg PRN Q10MIN PRN IV SEVERE PAIN; Start 03/28/17 at 17:00; Stop 03/29/17 at 16:59 Ringer's Solution 1,000 ml @ 30 mls/hr Q24H IV ; Start 03/28/17 at 16:57; Stop 03/29/17 at 04:56; Status DC Lidocaine HCl (Xylocaine-Mpf 1% Vial) 2 ml 1X PRN PRN ID IV START; Start at 17:00; Stop 03/29/17 at 16:59 Hydromorphone HCl (Dilaudid) 0.5 mg PRN Q10MIN PRN IV SEV PAIN, Second choice; Start 03/28/17 at 17:00; Stop 03/28/17 at 22:48; Status DC Prochlorperazine Edisylate (Compazine) 5 mg PACU PRN PRN IV NAUSEA, MRX1; Start 03/28/17 at 17:00; Stop 03/29/17 at 16:59 Bupivacaine HCl/ Epinephrine Bitart (Sensorcain-Mpf Epi 0.5%-[id number]) 30 ml STK -MED ONCE .ROUTE ; Start 03/28/17 at 17:21; Stop 03/28/17 at 17:22; Status DC Rocuronium [place] (Zemuron) 50 mg STK-MED ONCE .ROUTE ; Start 03/28/17 at 17:54 ; Stop 03/28/17 at 17:55; Status DC Fentanyl Citrate (Fentanyl 5ml Vial) 250 mcg STK-MED ONCE .ROUTE ; Start at 17:54; Stop 03/28/17 at 17:55; Status DC Desflurane (Suprane) 90 ml STK-MED ONCE IH ; Start 03/28/17 at 17:55; Stop 03/28 at 17:56; Status DC Propofol 20 ml @ As Directed STK-MED ONCE IV ; Start 03/28/17 at 17:55; Stop at 17:56; Status DC Dexamethasone Sodium Phosphate (Decadron) 20 mg STK-MED ONCE .ROUTE ; Start 03/28/17 at 17:55; Stop 03/28/17 at 17:56; Status DC Lidocaine HCl (Lidocaine Pf 2% Vial) 5 ml STK-MED ONCE .ROUTE ; Start 03/28/17 at 17:55; Stop 03/28/17 at 17:56; Status DC Ondansetron HCl (Zofran) 4 mg STK-MED ONCE .ROUTE ; Start 03/28/17 at 17:55; Stop 03/28/17 at 17:56; Status DC Phenylephrine HCl (Blas-Synephrine Inj) 10 mg STK-MED ONCE .ROUTE ; Start at 17:55; Stop 03/28/17 at 17:56; Status DC Phenylephrine HCl (Blas-Synephrine Inj) 10 mg STK-MED ONCE .ROUTE ; Start at 17:55; Stop 03/28/17 at 17:56; Status DC Phenylephrine HCl (Blas-Synephrine Inj) 10 mg STK-MED ONCE .ROUTE ; Start at 17:59; Stop 03/28/17 at 18:00; Status DC Cefazolin Sodium 50 ml @ 100 mls/hr 1X ONCE IV Last administered on t 18:50; Start 03/28/17 at 18:15; Stop 03/28/17 at 18:44; Status DC Ephedrine Sulfate (ePHEDrine PF IN SALINE SYRINGE) 50 mg STK-MED ONCE IV ; Start 03/28/17 at 18:37; Stop 03/28/17 at 18:38; Status DC Albumin Human 500 ml @ As Directed STK-MED ONCE IV ; Start 03/28/17 at 20:13; Stop 03/28/17 at 20:14; Status DC Neostigmine Methylsulfate (Bloxiverz) 10 mg STK-MED ONCE .ROUTE ; Start at 21:26; Stop 03/28/17 at 21:27; Status DC Glycopyrrolate (Robinul) 1 mg STK-MED ONCE .ROUTE ; Start 03/28/17 at 21:26; Stop 03/28/17 at 21:27; Status DC Morphine Sulfate 5 mg/Ropivacaine 60 ml/Epinephrine HCl 0.5 mg/Sodium Chloride 99 ml @ 99 mls/hr 1X PERIOP ONCE INT ART Last administered on 03/28/17t 22:00 ; Start 03/28/17 at 22:00; Stop 03/28/17 at 22:59; Status DC Phenylephrine HCl 80 mg/Sodium Chloride 258 ml @ 0 mls/hr CONT PRN IV SEE I/O RECORD Last administered on 03/29/17t 01:52; Start 03/28/17 at 22:30 Fentanyl Citrate 30 ml @ 0 mls/hr CONT PRN IV PROTOCOL; Start 03/28/17 at 22:30 ; Status UNV Oxycodone HCl (Roxicodone) 5 mg PRN Q3HRS PRN PO PAIN; Start 03/28/17 at 22:30 Morphine Sulfate 2 mg PRN Q1HR PRN IV PAIN; Start 03/28/17 at 22:30 Fentanyl Citrate (Fentanyl 2ml Vial) 25 mcg PRN Q1HR PRN IV PAIN; Start at 22:30 Senna/Docusate Sodium (Senna Plus) 1 tab DAILY PO ; Start 03/29/17 at 09:00 Polyethylene Glycol (miraLAX PACKET) 17 gm PRN DAILY PRN PO CONSTIPATION; Start 03/28/17 at 22:30 Ondansetron HCl (Zofran) 4 mg PRN Q4HRS PRN IV NAUSEA/VOMITING; Start 03/28/17 at 22:30 Enoxaparin Sodium (Lovenox 30mg Syringe) 30 mg DAILY SQ ; Start 03/29/17 at 09: 00 Magnesium Hydroxide (Milk Of Magnesia) 2,400 mg 1X PRN PRN PO CONSTIPATION; Start 03/29/17 at 06:00; Stop 03/30/17 at 05:59 Bisacodyl (Dulcolax Supp) 10 mg 1X PRN PRN DC CONSTIPATION; Start 03/29/17 at 16:00; Stop 03/30/17 at 15:59 Acetaminophen/ Hydrocodone Bitart (Lortab 7.5/325) 1 tab PRN Q4HRS PRN PO PAIN ; Start 03/28/17 at 22:30 Morphine Sulfate 4 mg PRN Q2HR PRN IV PAIN; Start 03/28/17 at 22:30 Acetaminophen/ Hydrocodone Bitart (Lortab 7.5/325) 2 tab PRN Q4HRS PRN PO PAIN ; Start 03/28/17 at 22:30 Dextrose (Dextrose 50%-Water Syringe) 12.5 gm PRN Q15MIN PRN IV SEE COMMENTS; Start 03/28/17 at 22:30 Cefazolin Sodium 1 gm/Dextrose 50 ml @ 100 mls/hr Q6H IV ; Start 03/28/17 at 23 :00; Stop 03/28/17 at 23:00; Status DC Fentanyl Citrate 30 ml @ 0 mls/hr CONT PRN PRN IV PROTOCOL Last administered on 03/28/17 23:24; Start 03/28/17 at 22:30 Gentamicin Sulfate 80 mg/ Dextrose 102 ml @ 204 mls/hr 1X ONCE IV ; Start 03/28/17 at 23:00; Stop 03/28/17 at 23:00; Status DC Gentamicin Sulfate 80 mg/ Sodium Chloride 102 ml @ 204 mls/hr 1X ONCE IV ; Start 03/29/17 at 12:00; Stop 03/29/17 at 12:29 Enoxaparin Sodium (Lovenox 30mg Syringe) 30 mg Q24H SQ ; Start 03/29/17 at 09:00 ; Status UNV Aspirin (Ecotrin) 81 mg DAILY PO ; Start 03/29/17 at 09:00 Midazolam HCl 100 ml @ 0 mls/hr CONT PRN IV SEE I/O RECORD Last administered on 03/28/17 23:21; Start 03/28/17 at 22:45 Cefazolin Sodium 1 gm/Sodium Chloride 50 ml @ 100 mls/hr Q6H IV Last administered on 03/29/17 05:32; Start 03/28/17 at 23:00; Stop 03/29/17 at 11:29 Gentamicin Sulfate 80 mg/ Sodium Chloride 102 ml @ 204 mls/hr 1X ONCE IV Last administered on 03/29/17 00:21; Start 03/28/17 at 23:00; Stop 03/28/17 at 23:29; Status DC Active Scripts Active Probiotic (Lactobacillus Acidophilus) 1 Each Capsule 1 Each PO BID Keflex (Cephalexin) 250 Mg Capsule 1 Cap PO AFTER DIALYSIS Furosemide 80 Mg Tablet 80 Mg PO DAILY Cozaar (Losartan Potassium) 50 Mg Tablet 100 Mg PO DAILY 30 Days Reported [lidoderm ] 2 Patch TD DAILY [facility] Rx Tablet (Vit B Cmplx 3/Fa/Vit C/Biotin) 1 Each Tablet 1 Each PO 3X/ WEEK [facility] Tablet (Folic Acid/Vitamin B Comp W-C) 0.8 Mg Tablet 0.8 Mg PO Calcium 500 + D Tablet (Calcium Carbonate/Vitamin D3) 1 Each Tablet 500 Each PO BID Vitamin D3 (Cholecalciferol (Vitamin D3)) 1,000 Unit Tablet 2 Tab PO HS Escitalopram Oxalate 10 Mg Tablet 10 Mg PO DAILY Zocor (Simvastatin) 20 Mg Tablet 20 Mg PO HS Hydrocodone-Apap 7.5-325 (Hydrocodone Bit/Acetaminophen) 1 Each Tablet 1 Each PO PRN Q8HRS Lofibra (Fenofibrate,Micronized) 134 Mg Capsule 145 Mg PO DAILY Coreg (Carvedilol) 6.25 Mg Tablet 6.25 Mg PO BID Aspir 81 (Aspirin) 81 Mg Tablet.dr 81 Mg PO DAILY Albuterol Sulfate Hfa Inhaler (Albuterol Sulfate) 8.5 Gm Hfa.aer.ad 8.5 Gm IH PRN Q4HRS Vitals/I & O Vital Sign - Last 24 Hours 03/28/17 03/28/17 03/28/17 03/28/17 11:25 12:25 12:40 14:00 Temp 97.6 97.4 97.6 97.4 Pulse 72 72 69 72 Resp 24 20 16 18 B/P (MAP) 145/99 (114) 170/65 (100) Pulse Ox 97 98 98 100 O2 Delivery Nasal Cannula Nasal Cannula O2 Flow Rate 2.0 2.0 03/28/17 03/28/17 03/28/17 03/28/17 14:00 14:15 15:50 17:07 Temp 97.4 97.1 97.4 97.1 Pulse 72 78 Resp 18 16 18 B/P (MAP) 170/65 (100) 137/57 Pulse Ox 100 2 96 O2 Delivery Nasal Cannula Nasal Cannula Nasal Cannula Nasal Cannula O2 Flow Rate 2.0 2.0 2 03/28/17 03/28/17 03/28/17 03/28/17 22:26 22:30 22:45 23:00 Temp 97.5 97.5 Pulse 80 72 Resp 20 18 B/P (MAP) 85/74 (78) 114/42 (66) Pulse Ox 94 98 100 100 O2 Delivery Ventilator Ventilator Ventilator Ventilator 03/28/17 03/28/17 03/28/17 03/28/17 23:24 23:29 23:30 23:38 Pulse 70 Resp 16 16 20 B/P (MAP) 135/40 (71) Pulse Ox 100 100 100 99 O2 Delivery Ventilator Ventilator Ventilator Ventilator 03/28/17 03/28/17 03/29/17 03/29/17 23:45 23:54 00:00 00:00 Pulse 68 68 Resp 16 16 16 B/P (MAP) 102/66 (78) 112/34 (60) Pulse Ox 100 100 100 O2 Delivery Ventilator Ventilator Mechanical Ventilator Ventilator 03/29/17 03/29/17 03/29/17 03/29/17 00:12 00:15 00:30 00:41 Temp 97.4 97.4 Pulse 68 68 68 67 Resp 16 16 16 16 B/P (MAP) 112/34 111/83 (92) 106/30 (55) 106/30 Pulse Ox 100 100 O2 Delivery Ventilator Ventilator 03/29/17 03/29/17 03/29/17 03/29/17 00:45 00:49 00:58 01:00 Temp 96.8 96.8 Pulse 68 68 66 Resp 16 16 16 B/P (MAP) 113/35 (61) 113/35 96/40 (58) Pulse Ox 100 100 100 O2 Delivery Ventilator Ventilator Ventilator 03/29/17 03/29/17 03/29/17 03/29/17 01:43 01:45 02:00 02:23 Temp 96.5 97.5 96.5 96.5 97.5 96.5 Pulse 66 65 67 Resp 16 16 16 B/P (MAP) 96/40 109/39 (62) 107/32 (57) 109/39 Pulse Ox 100 O2 Delivery Ventilator 03/29/17 03/29/17 03/29/17 03/29/17 02:27 02:52 03:15 03:32 Temp 96.5 96.5 Pulse 65 63 67 Resp 16 16 16 B/P (MAP) 107/32 184/54 (97) 93/54 Pulse Ox 100 100 O2 Delivery Ventilator Ventilator 03/29/17 03/29/17 03/29/17 03/29/17 03:33 03:45 04:00 04:00 Pulse 67 66 Resp 16 16 B/P (MAP) 93/54 (67) 85/65 (72) Pulse Ox 100 100 O2 Delivery Ventilator Ventilator Mechanical Ventilator 03/29/17 03/29/17 03/29/17 03/29/17 04:05 04:30 04:40 04:46 Temp 97.0 97.0 Pulse 66 Resp 16 B/P (MAP) 205/110 (141) 129/42 (71) 79/25 (43) Pulse Ox 100 O2 Delivery Ventilator 03/29/17 03/29/17 03/29/17 03/29/17 05:00 05:15 05:30 05:33 Pulse 64 Resp 16 B/P (MAP) 116/40 (65) 138/36 (70) 121/40 (67) Pulse Ox 100 100 O2 Delivery Ventilator Ventilator 03/29/17 03/29/17 03/29/17 03/29/17 06:00 06:30 07:00 07:41 Pulse 68 71 Resp 19 24 B/P (MAP) 112/72 (85) 119/60 (79) 133/74 (93) Pulse Ox 100 100 99 O2 Delivery Ventilator Ventilator Ventilator 03/29/17 03/29/17 08:00 09:00 Temp 98.0 98.0 Pulse 70 70 Resp 21 24 B/P (MAP) 83/34 (50) 108/50 (69) Pulse Ox 100 100 O2 Delivery Ventilator Ventilator Intake and Output 03/28/17 03/28/17 03/29/17 15:00 23:00 07:00 Intake Total 0 ml 1414 ml Output Total 0 ml 33 ml Balance 0 ml 1381 ml ELENA BRAVO MD Mar 29, 2017 09:12
--- NOTE | 2017-03-29 09:42 | PDOC2 ---
CONSULT Date of Consult Date of Consult DATE: 03/29/17 TIME: 09:30 Reason for Consult Reason for Consult: ESRD Referring Physician Referring Physician: Dr Bullock Identification/Chief Complaint Chief Complaint Fractures Problems: Source Source: Chart review History of Present Illness Reason for Visit: as dictated Past Medical History Cardiovascular: CAD, CHF, HTN, Hyperlipidemia Pulmonary: COPD CENTRAL NERVOUS SYSTEM: Other GI: GERD, Other Heme/Onc: Anemia NOS Hepatobiliary: No pertinent hx Psych: Anxiety Musculoskeletal: Osteoarthritis Rheumatologic: No pertinent hx Infectious disease: No pertinent hx Renal/: Chronic renal failure, UTI Endocrine: No pertinent hx Past Surgical History Past Surgical History: CABG, Total knee replacement, Tubal Ligation, Other Family History Family History: Coronary Artery Disease Social History No ALCOHOL: none Drugs: None Lives: with Family Domestic Violence: Neg Current Problem List Problem List Problems Medical Problems: (1) Femur fracture, right Status: Acute (2) Open fibular fracture Status: Acute Current Medications Current Medications Current Medications Fentanyl Citrate (Fentanyl 2ml Vial) 50 mcg 1X ONCE IV ; Start 03/28/17 at 11: 45; Stop 03/28/17 at 11:46; Status DC Cefazolin Sodium/ Dextrose 50 ml @ 100 mls/hr 1X ONCE IV ; Start 03/28/17 at 12:30; Stop 03/28/17 at 12:59; Status DC Diphtheria/ Tetanus/Acell Pertussis (Boostrix) 0.5 ml ONCE ONCE VAX IM Last administered on 03/28/17 15:57; Start 03/28/17 at 13:00; Stop 03/28/17 at 13:01 ; Status DC Sodium Chloride 1,000 ml @ 75 mls/hr [id number] IV Last administered on 15:48; Start 03/28/17 at 13:00; Stop 03/28/17 at 22:49; Status DC Morphine Sulfate 2 mg PRN Q2HR PRN IV PAIN Last administered on 03/28/17 15:50 ; Start 03/28/17 at 13:00; Stop 03/29/17 at 12:59 Ropivacaine 53.3 ml/Epinephrine HCl 0.6 mg/ Morphine Sulfate 5 mg/Sodium Chloride 100 ml @ 100 mls/hr 1X ONCE INT ART ; Start 03/28/17 at 13:00; Stop 03/28/17 at 13:59; Status DC Ondansetron HCl (Zofran) 4 mg PRN Q6HRS PRN IV NAUSEA/VOMITING; Start 03/28/17 at 14:30; Stop 03/28/17 at 22:48; Status DC Acetaminophen (Tylenol) 650 mg PRN Q6HRS PRN PO pain; Start 03/28/17 at 14:30 Fentanyl Citrate (Fentanyl 2ml Vial) 50 mcg PRN Q2HR PRN IV PAIN Last administered on 03/28/17t 22:45; Start 03/28/17 at 14:30 Ondansetron HCl (Zofran) 4 mg PRN Q6HRS PRN IV NAUSEA/VOMITING; Start 03/28/17 at 17:00; Stop 03/28/17 at 22:48; Status DC Fentanyl Citrate (Fentanyl 2ml Vial) 25 mcg PRN Q5MIN PRN IV MILD PAIN; Start 03/28/17 at 17:00; Stop 03/28/17 at 22:48; Status DC Fentanyl Citrate (Fentanyl 2ml Vial) 50 mcg PRN Q5MIN PRN IV MODERATE PAIN; Start 03/28/17 at 17:00; Stop 03/28/17 at 22:48; Status DC Morphine Sulfate 1 mg PRN Q10MIN PRN IV SEVERE PAIN; Start 03/28/17 at 17:00; Stop 03/29/17 at 16:59 Ringer's Solution 1,000 ml @ 30 mls/hr Q24H IV ; Start 03/28/17 at 16:57; Stop 03/29/17 at 04:56; Status DC Lidocaine HCl (Xylocaine-Mpf 1% Vial) 2 ml 1X PRN PRN ID IV START; Start at 17:00; Stop 03/29/17 at 16:59 Hydromorphone HCl (Dilaudid) 0.5 mg PRN Q10MIN PRN IV SEV PAIN, Second choice; Start 03/28/17 at 17:00; Stop 03/28/17 at 22:48; Status DC Prochlorperazine Edisylate (Compazine) 5 mg PACU PRN PRN IV NAUSEA, MRX1; Start 03/28/17 at 17:00; Stop 03/29/17 at 16:59 Bupivacaine HCl/ Epinephrine Bitart (Sensorcain-Mpf Epi 0.5%-1:[id number]) 30 ml STK -MED ONCE .ROUTE ; Start 03/28/17 at 17:21; Stop 03/28/17 at 17:22; Status DC Rocuronium [place] (Zemuron) 50 mg STK-MED ONCE .ROUTE ; Start 03/28/17 at 17:54 ; Stop 03/28/17 at 17:55; Status DC Fentanyl Citrate (Fentanyl 5ml Vial) 250 mcg STK-MED ONCE .ROUTE ; Start at 17:54; Stop 03/28/17 at 17:55; Status DC Desflurane (Suprane) 90 ml STK-MED ONCE IH ; Start 03/28/17 at 17:55; Stop 03/28 at 17:56; Status DC Propofol 20 ml @ As Directed STK-MED ONCE IV ; Start 03/28/17 at 17:55; Stop at 17:56; Status DC Dexamethasone Sodium Phosphate (Decadron) 20 mg STK-MED ONCE .ROUTE ; Start 03/28/17 at 17:55; Stop 03/28/17 at 17:56; Status DC Lidocaine HCl (Lidocaine Pf 2% Vial) 5 ml STK-MED ONCE .ROUTE ; Start 03/28/17 at 17:55; Stop 03/28/17 at 17:56; Status DC Ondansetron HCl (Zofran) 4 mg STK-MED ONCE .ROUTE ; Start 03/28/17 at 17:55; Stop 03/28/17 at 17:56; Status DC Phenylephrine HCl (Blas-Synephrine Inj) 10 mg STK-MED ONCE .ROUTE ; Start at 17:55; Stop 03/28/17 at 17:56; Status DC Phenylephrine HCl (Blas-Synephrine Inj) 10 mg STK-MED ONCE .ROUTE ; Start at 17:55; Stop 03/28/17 at 17:56; Status DC Phenylephrine HCl (Blas-Synephrine Inj) 10 mg STK-MED ONCE .ROUTE ; Start at 17:59; Stop 03/28/17 at 18:00; Status DC Cefazolin Sodium 50 ml @ 100 mls/hr 1X ONCE IV Last administered on t 18:50; Start 03/28/17 at 18:15; Stop 03/28/17 at 18:44; Status DC Ephedrine Sulfate (ePHEDrine PF IN SALINE SYRINGE) 50 mg STK-MED ONCE IV ; Start 03/28/17 at 18:37; Stop 03/28/17 at 18:38; Status DC Albumin Human 500 ml @ As Directed STK-MED ONCE IV ; Start 03/28/17 at 20:13; Stop 03/28/17 at 20:14; Status DC Neostigmine Methylsulfate (Bloxiverz) 10 mg STK-MED ONCE .ROUTE ; Start at 21:26; Stop 03/28/17 at 21:27; Status DC Glycopyrrolate (Robinul) 1 mg STK-MED ONCE .ROUTE ; Start 03/28/17 at 21:26; Stop 03/28/17 at 21:27; Status DC Morphine Sulfate 5 mg/Ropivacaine 60 ml/Epinephrine HCl 0.5 mg/Sodium Chloride 99 ml @ 99 mls/hr 1X PERIOP ONCE INT ART Last administered on 03/28/17 22:00 ; Start 03/28/17 at 22:00; Stop 03/28/17 at 22:59; Status DC Phenylephrine HCl 80 mg/Sodium Chloride 258 ml @ 0 mls/hr CONT PRN IV SEE I/O RECORD Last administered on 03/29/17 01:52; Start 03/28/17 at 22:30 Fentanyl Citrate 30 ml @ 0 mls/hr CONT PRN IV PROTOCOL; Start 03/28/17 at 22:30 ; Status UNV Oxycodone HCl (Roxicodone) 5 mg PRN Q3HRS PRN PO PAIN; Start 03/28/17 at 22:30 Morphine Sulfate 2 mg PRN Q1HR PRN IV PAIN; Start 03/28/17 at 22:30 Fentanyl Citrate (Fentanyl 2ml Vial) 25 mcg PRN Q1HR PRN IV PAIN; Start at 22:30 Senna/Docusate Sodium (Senna Plus) 1 tab DAILY PO ; Start 03/29/17 at 09:00 Polyethylene Glycol (miraLAX PACKET) 17 gm PRN DAILY PRN PO CONSTIPATION; Start 03/28/17 at 22:30 Ondansetron HCl (Zofran) 4 mg PRN Q4HRS PRN IV NAUSEA/VOMITING; Start 03/28/17 at 22:30 Enoxaparin Sodium (Lovenox 30mg Syringe) 30 mg DAILY SQ ; Start 03/29/17 at 09: 00 Magnesium Hydroxide (Milk Of Magnesia) 2,400 mg 1X PRN PRN PO CONSTIPATION; Start 03/29/17 at 06:00; Stop 03/30/17 at 05:59 Bisacodyl (Dulcolax Supp) 10 mg 1X PRN PRN [place] CONSTIPATION; Start 03/29/17 at 16:00; Stop 03/30/17 at 15:59 Acetaminophen/ Hydrocodone Bitart (Lortab 7.5/325) 1 tab PRN Q4HRS PRN PO PAIN ; Start 03/28/17 at 22:30 Morphine Sulfate 4 mg PRN Q2HR PRN IV PAIN; Start 03/28/17 at 22:30 Acetaminophen/ Hydrocodone Bitart (Lortab 7.5/325) 2 tab PRN Q4HRS PRN PO PAIN ; Start 03/28/17 at 22:30 Dextrose (Dextrose 50%-Water Syringe) 12.5 gm PRN Q15MIN PRN IV SEE COMMENTS; Start 03/28/17 at 22:30 Cefazolin Sodium 1 gm/Dextrose 50 ml @ 100 mls/hr Q6H IV ; Start 03/28/17 at 23 :00; Stop 03/28/17 at 23:00; Status DC Fentanyl Citrate 30 ml @ 0 mls/hr CONT PRN PRN IV PROTOCOL Last administered on 03/28/17t 23:24; Start 03/28/17 at 22:30 Gentamicin Sulfate 80 mg/ Dextrose 102 ml @ 204 mls/hr 1X ONCE IV ; Start 03/28/17 at 23:00; Stop 03/28/17 at 23:00; Status DC Gentamicin Sulfate 80 mg/ Sodium Chloride 102 ml @ 204 mls/hr 1X ONCE IV ; Start 03/29/17 at 12:00; Stop 03/29/17 at 12:29 Enoxaparin Sodium (Lovenox 30mg Syringe) 30 mg Q24H SQ ; Start 03/29/17 at 09:00 ; Status UNV Aspirin (Ecotrin) 81 mg DAILY PO ; Start 03/29/17 at 09:00 Midazolam HCl 100 ml @ 0 mls/hr CONT PRN IV SEE I/O RECORD Last administered on 03/28/17 23:21; Start 03/28/17 at 22:45 Cefazolin Sodium 1 gm/Sodium Chloride 50 ml @ 100 mls/hr Q6H IV Last administered on 03/29/17 05:32; Start 03/28/17 at 23:00; Stop 03/29/17 at 11:29 Gentamicin Sulfate 80 mg/ Sodium Chloride 102 ml @ 204 mls/hr 1X ONCE IV Last administered on 03/29/17 00:21; Start 03/28/17 at 23:00; Stop 03/28/17 at 23:29; Status DC Active Scripts Active Probiotic (Lactobacillus Acidophilus) 1 Each Capsule 1 Each PO BID Keflex (Cephalexin) 250 Mg Capsule 1 Cap PO AFTER DIALYSIS Furosemide 80 Mg Tablet 80 Mg PO DAILY Cozaar (Losartan Potassium) 50 Mg Tablet 100 Mg PO DAILY 30 Days Reported [lidoderm ] 2 Patch TD DAILY [facility] Rx Tablet (Vit B Cmplx 3/Fa/Vit C/Biotin) 1 Each Tablet 1 Each PO 3X/ WEEK [facility] Tablet (Folic Acid/Vitamin B Comp W-C) 0.8 Mg Tablet 0.8 Mg PO Calcium 500 + D Tablet (Calcium Carbonate/Vitamin D3) 1 Each Tablet 500 Each PO BID Vitamin D3 (Cholecalciferol (Vitamin D3)) 1,000 Unit Tablet 2 Tab PO HS Escitalopram Oxalate 10 Mg Tablet 10 Mg PO DAILY Zocor (Simvastatin) 20 Mg Tablet 20 Mg PO HS Hydrocodone-Apap 7.5-325 (Hydrocodone Bit/Acetaminophen) 1 Each Tablet 1 Each PO PRN Q8HRS Lofibra (Fenofibrate,Micronized) 134 Mg Capsule 145 Mg PO DAILY Coreg (Carvedilol) 6.25 Mg Tablet 6.25 Mg PO BID Aspir 81 (Aspirin) 81 Mg Tablet.dr 81 Mg PO DAILY Albuterol Sulfate Hfa Inhaler (Albuterol Sulfate) 8.5 Gm Hfa.aer.ad 8.5 Gm IH PRN Q4HRS Allergies Allergies: Coded Allergies: quinine (Verified Allergy, Severe, Anaphylaxis, 03/28/17) ROS Review of System Unable to obtain from pt due to sedated and intubated state Physical Exam Physical Exam General Appearance: SEdated and intubated ont he VENT In no Distress Eyes: Sclera Anicteric Conjunctiva Normal EN: No EN Drainage Mucous Memb. moist Neck: no JVD + JVP Supple no Thyromegaly CVS: S1 S2 + Murmur No Gallop No Rub no Edema Resp: few jennie basal Rales no Rhonchi no Acc. Muscle use GI: BS +ve NO Bruit Non Tender Non Distended : no CVA tenderness; no Suprapubic Tenderness SKIN: no Rashes Breast Exam deferred Mu.Sk: limited Low ext ROM(from #s) + Muscle Atrophy Heme: Unable to palpate Obvious LAD no Splenomegaly NEURO: Unable to assess due to sedated and intubated state Psych: Unable to assess due to sedated and intubated state Vital Signs Vital Signs Date Time Temp Pulse Resp B/P (MAP) Pulse Ox O2 Delivery O2 Flow Rate FiO2 03/29/17 09:00 70 24 108/50 (69) 100 Ventilator 03/29/17 08:00 98.0 98.0 03/28/17 17:07 2 Assessment & Plan ESRD: Dialysis as below F 180 NR 3.0 Hrs 2 K 3.5 Ca 140 Na 40 HC03 Qb 350 + Qd 500+ Heparin 0 Units Uf 0 Kgs or to dry weight as tolerated May give 25-50 gms of 25% Albumin if needed to maintain Hemodynamic stability Treatment plan reviewed and discussed with camera tuning engineer Anemia of CKD/ ESRD : (? Partially Post op/ Bl ood loss too) start Epogen; Transfuse with next HD as needed. HypoTN: Current pressors/ meds reviewed. wean pressors as binh Bone & Mineral: h/o ^ phos - watch trend and alter binder regiemn as based on PO intake. Lowish Fidel - attempt correction with HD ; ? due to BT ^ed K - HD later today, ? due to BT Labs Labs Laboratory Tests Test 03/28/17 13:00 03/28/17 23:20 03/28/17 23:30 03/29/17 05:40 White Blood Count 12.1 x10^3/uL (4.0-11.0) 21.6 x10^3/uL (4.0-11.0) 36.9 x10^3/uL (4.0-11.0) Red Blood Count 2.29 x10^6/uL (3.50-5.40) 1.58 x10^6/uL (3.50-5.40) 3.69 x10^6/uL (3.50-5.40) Hemoglobin 8.0 g/dL (12.0-15.5) 5.1 g/dL (12.0-15.5) 11.5 g/dL (12.0-15.5) Hematocrit 25.5 % (36.0-47.0) 16.1 % (36.0-47.0) 35.3 % (36.0-47.0) Mean Corpuscular Volume 112 fL (79-100) 102 fL (79-100) 96 fL (79-100) Mean Corpuscular Hemoglobin 35 pg (25-35) 32 pg (25-35) 31 pg (25-35) Mean Corpuscular Hemoglobin Concent 32 g/dL (31-37) 32 g/dL (31-37) 33 g/dL (31-37) Red Cell Distribution Width 15.1 % (11.5-14.5) 23.8 % (11.5-14.5) 17.0 % (11.5-14.5) Platelet Count 178 x10^3/uL (140-400) 160 x10^3/uL (140-400) 120 x10^3/uL (140-400) Neutrophils (%) (Auto) 88 % (31-73) 87 % (31-73) Lymphocytes (%) (Auto) 5 % (24-48) 8 % (24-48) Monocytes (%) (Auto) 4 % (0-9) 5 % (0-9) Eosinophils (%) (Auto) 3 % (0-3) 0 % (0-3) Basophils (%) (Auto) 0 % (0-3) 1 % (0-3) Neutrophils # (Auto) 10.6 x10^3uL (1.8-7.7) 32.0 x10^3uL (1.8-7.7) Lymphocytes # (Auto) 0.6 x10^3/uL (1.0-4.8) 2.8 x10^3/uL (1.0-4.8) Monocytes # (Auto) 0.5 x10^3/uL (0.0-1.1) 2.0 x10^3/uL (0.0-1.1) Eosinophils # (Auto) 0.4 x10^3/uL (0.0-0.7) 0.0 x10^3/uL (0.0-0.7) Basophils # (Auto) 0.1 x10^3/uL (0.0-0.2) 0.2 x10^3/uL (0.0-0.2) Segmented Neutrophils % 83 % (35-66) 90 % (35-66) Band Neutrophils % 6 % (0-9) 5 % (0-9) Lymphocytes % 4 % (24-48) 3 % (24-48) Monocytes % 6 % (0-10) 1 % (0-10) Basophils % 1 % (0-3) Platelet Estimate Adequate (ADEQUATE) Adequate (ADEQUATE) Polychromasia Slight Macrocytosis Mod Ovalocytes Few Prothrombin Time 14.6 SEC (11.7-14.0) Prothromb Time International Ratio 1.2 (0.8-1.1) Sodium Level 136 mmol/L (136-145) 138 mmol/L (136-145) Potassium Level 4.0 mmol/L (3.5-5.1) 5.7 mmol/L (3.5-5.1) Chloride Level 101 mmol/L (98-107) 106 mmol/L (98-107) Carbon Dioxide Level 35 mmol/L (21-32) 21 mmol/L (21-32) Anion Gap 0 (6-14) 11 (6-14) Blood Urea Nitrogen 19 mg/dL (7-20) 25 mg/dL (7-20) Creatinine 1.7 mg/dL (0.6-1.0) 1.9 mg/dL (0.6-1.0) Estimated GFR (Cockcroft-Gault) 29.5 26.0 Glucose Level 143 mg/dL (70-99) 114 mg/dL (70-99) Calcium Level 8.8 mg/dL (8.5-10.1) 7.5 mg/dL (8.5-10.1) O2 Saturation 99 % (92-99) Arterial Blood pH 7.45 (7.35-7.45) Arterial Blood pCO2 at Patient Temp 40 mmHg (35-46) Arterial Blood pO2 at Patient Temp 431 mmHg (65-108) Arterial Blood HCO3 27 mmol/L (21-28) Arterial Blood Base Excess 3 mmol/L (-3-3) FiO2 100 Myelocytes % 1 % (0-0) Laboratory Tests Test 03/28/17 13:00 03/28/17 23:20 03/28/17 23:30 03/29/17 05:40 White Blood Count 12.1 x10^3/uL (4.0-11.0) 21.6 x10^3/uL (4.0-11.0) 36.9 x10^3/uL (4.0-11.0) Red Blood Count 2.29 x10^6/uL (3.50-5.40) 1.58 x10^6/uL (3.50-5.40) 3.69 x10^6/uL (3.50-5.40) Hemoglobin 8.0 g/dL (12.0-15.5) 5.1 g/dL (12.0-15.5) 11.5 g/dL (12.0-15.5) Hematocrit 25.5 % (36.0-47.0) 16.1 % (36.0-47.0) 35.3 % (36.0-47.0) Mean Corpuscular Volume 112 fL (79-100) 102 fL (79-100) 96 fL (79-100) Mean Corpuscular Hemoglobin 35 pg (25-35) 32 pg (25-35) 31 pg (25-35) Mean Corpuscular Hemoglobin Concent 32 g/dL (31-37) 32 g/dL (31-37) 33 g/dL (31-37) Red Cell Distribution Width 15.1 % (11.5-14.5) 23.8 % (11.5-14.5) 17.0 % (11.5-14.5) Platelet Count 178 x10^3/uL (140-400) 160 x10^3/uL (140-400) 120 x10^3/uL (140-400) Neutrophils (%) (Auto) 88 % (31-73) 87 % (31-73) Lymphocytes (%) (Auto) 5 % (24-48) 8 % (24-48) Monocytes (%) (Auto) 4 % (0-9) 5 % (0-9) Eosinophils (%) (Auto) 3 % (0-3) 0 % (0-3) Basophils (%) (Auto) 0 % (0-3) 1 % (0-3) Neutrophils # (Auto) 10.6 x10^3uL (1.8-7.7) 32.0 x10^3uL (1.8-7.7) Lymphocytes # (Auto) 0.6 x10^3/uL (1.0-4.8) 2.8 x10^3/uL (1.0-4.8) Monocytes # (Auto) 0.5 x10^3/uL (0.0-1.1) 2.0 x10^3/uL (0.0-1.1) Eosinophils # (Auto) 0.4 x10^3/uL (0.0-0.7) 0.0 x10^3/uL (0.0-0.7) Basophils # (Auto) 0.1 x10^3/uL (0.0-0.2) 0.2 x10^3/uL (0.0-0.2) Segmented Neutrophils % 83 % (35-66) 90 % (35-66) Band Neutrophils % 6 % (0-9) 5 % (0-9) Lymphocytes % 4 % (24-48) 3 % (24-48) Monocytes % 6 % (0-10) 1 % (0-10) Basophils % 1 % (0-3) Platelet Estimate Adequate (ADEQUATE) Adequate (ADEQUATE) Polychromasia Slight Macrocytosis Mod Ovalocytes Few Prothrombin Time 14.6 SEC (11.7-14.0) Prothromb Time International Ratio 1.2 (0.8-1.1) Sodium Level 136 mmol/L (136-145) 138 mmol/L (136-145) Potassium Level 4.0 mmol/L (3.5-5.1) 5.7 mmol/L (3.5-5.1) Chloride Level 101 mmol/L (98-107) 106 mmol/L (98-107) Carbon Dioxide Level 35 mmol/L (21-32) 21 mmol/L (21-32) Anion Gap 0 (6-14) 11 (6-14) Blood Urea Nitrogen 19 mg/dL (7-20) 25 mg/dL (7-20) Creatinine 1.7 mg/dL (0.6-1.0) 1.9 mg/dL (0.6-1.0) Estimated GFR (Cockcroft-Gault) 29.5 26.0 Glucose Level 143 mg/dL (70-99) 114 mg/dL (70-99) Calcium Level 8.8 mg/dL (8.5-10.1) 7.5 mg/dL (8.5-10.1) O2 Saturation 99 % (92-99) Arterial Blood pH 7.45 (7.35-7.45) Arterial Blood pCO2 at Patient Temp 40 mmHg (35-46) Arterial Blood pO2 at Patient Temp 431 mmHg (65-108) Arterial Blood HCO3 27 mmol/L (21-28) Arterial Blood Base Excess 3 mmol/L (-3-3) FiO2 100 Myelocytes % 1 % (0-0) Images Images Coarsened lung markings throughout the bilateral lungs. Although portion this could be from chronic lung disease superimposed edema or interstitial infiltrate is possible. BASILIA HAMEED MD Mar 29, 2017 09:42
[2017-03-29] MEDS ORDERED: PIPERACILLIN/TAZO IV Push 2.25 GM VIAL. IVP SCH ×2 (10:00→11:00)
[2017-03-29 10:04] LABS: HCO3 ABG 19 mmol/L (21-28); PCO2 ABG 33 mmHg (35-46); PH ABG 7.38 (7.35-7.45); PO2 ABG 71 mmHg (65-108); SAT O2 ABG 94 % (92-99)
[2017-03-29 10:07] LABS: FIO2 ABG 40
[2017-03-29] MEDS ORDERED: NOREPINEPHRIN PREMIX 250 ML IV PRN (10:45)
--- NOTE | 2017-03-29 10:50 | CONS ---
DATE OF CONSULTATION: PRIMARY PHYSICIAN: Dr. Bullock. REASON FOR CONSULTATION: ESRD, dialysis. HISTORY OF PRESENT ILLNESS: The patient is a 71-year-old female who dialyzes on a [place]ls[place] basis. She is noted to be frail. She was recently admitted to this hospital for shortness of breath. She was recently sent out over the weekend. She had a fall yesterday and on arrival to the ER, imaging studies in the ER showed distal right femoral fracture and open left tibial/fibula fracture. She is now status post ORIF of those two. She is on the ventilator currently, is unable to provide much in terms of history. She remains on pressors. We were asked to see her for Monday, Monday and Monday ESRD status. PAST MEDICAL HISTORY: Significant for cataract extractions; lens implants; hearing deficits, he uses hearing aids; history of congestive heart failure; CABG; CAD; hyperlipidemia; hypertension; COPD; emphysema, home O2 requiring; constipation; generalized debility; GERD; tubal ligation; ESRD, dialyzes Monday, Monday and Monday; urinary incontinence; osteoarthritis with joint replacement, right femur as well as right total knee; anxiety; depression; previous history of tobaccoism; chronic anemia. For rest of details, see electronic records. BASILIA HAMEED MD DR: [id number]/kvng JOB#: [id number] / [id number]
--- NOTE | 2017-03-29 11:12 | PDOC ---
PULMONARY PROGRESS NOTES Vitals Vital Signs Date Time Temp Pulse Resp B/P (MAP) Pulse Ox O2 Delivery O2 Flow Rate FiO2 03/29/17 10:06 99 Ventilator 03/29/17 10:00 66 16 03/29/17 08:00 98.0 98.0 03/28/17 17:07 2 Cardiovascular: S2 Labs Laboratory Tests Test 03/28/17 13:00 03/28/17 23:20 03/28/17 23:30 03/29/17 05:40 White Blood Count 12.1 x10^3/uL (4.0-11.0) 21.6 x10^3/uL (4.0-11.0) 36.9 x10^3/uL (4.0-11.0) Red Blood Count 2.29 x10^6/uL (3.50-5.40) 1.58 x10^6/uL (3.50-5.40) 3.69 x10^6/uL (3.50-5.40) Hemoglobin 8.0 g/dL (12.0-15.5) 5.1 g/dL (12.0-15.5) 11.5 g/dL (12.0-15.5) Hematocrit 25.5 % (36.0-47.0) 16.1 % (36.0-47.0) 35.3 % (36.0-47.0) Mean Corpuscular Volume 112 fL (79-100) 102 fL (79-100) 96 fL (79-100) Mean Corpuscular Hemoglobin 35 pg (25-35) 32 pg (25-35) 31 pg (25-35) Mean Corpuscular Hemoglobin Concent 32 g/dL (31-37) 32 g/dL (31-37) 33 g/dL (31-37) Red Cell Distribution Width 15.1 % (11.5-14.5) 23.8 % (11.5-14.5) 17.0 % (11.5-14.5) Platelet Count 178 x10^3/uL (140-400) 160 x10^3/uL (140-400) 120 x10^3/uL (140-400) Neutrophils (%) (Auto) 88 % (31-73) 87 % (31-73) Lymphocytes (%) (Auto) 5 % (24-48) 8 % (24-48) Monocytes (%) (Auto) 4 % (0-9) 5 % (0-9) Eosinophils (%) (Auto) 3 % (0-3) 0 % (0-3) Basophils (%) (Auto) 0 % (0-3) 1 % (0-3) Neutrophils # (Auto) 10.6 x10^3uL (1.8-7.7) 32.0 x10^3uL (1.8-7.7) Lymphocytes # (Auto) 0.6 x10^3/uL (1.0-4.8) 2.8 x10^3/uL (1.0-4.8) Monocytes # (Auto) 0.5 x10^3/uL (0.0-1.1) 2.0 x10^3/uL (0.0-1.1) Eosinophils # (Auto) 0.4 x10^3/uL (0.0-0.7) 0.0 x10^3/uL (0.0-0.7) Basophils # (Auto) 0.1 x10^3/uL (0.0-0.2) 0.2 x10^3/uL (0.0-0.2) Segmented Neutrophils % 83 % (35-66) 90 % (35-66) Band Neutrophils % 6 % (0-9) 5 % (0-9) Lymphocytes % 4 % (24-48) 3 % (24-48) Monocytes % 6 % (0-10) 1 % (0-10) Basophils % 1 % (0-3) Platelet Estimate Adequate (ADEQUATE) Adequate (ADEQUATE) Polychromasia Slight Macrocytosis Mod Ovalocytes Few Prothrombin Time 14.6 SEC (11.7-14.0) Prothromb Time International Ratio 1.2 (0.8-1.1) Sodium Level 136 mmol/L (136-145) 138 mmol/L (136-145) Potassium Level 4.0 mmol/L (3.5-5.1) 5.7 mmol/L (3.5-5.1) Chloride Level 101 mmol/L (98-107) 106 mmol/L (98-107) Carbon Dioxide Level 35 mmol/L (21-32) 21 mmol/L (21-32) Anion Gap 0 (6-14) 11 (6-14) Blood Urea Nitrogen 19 mg/dL (7-20) 25 mg/dL (7-20) Creatinine 1.7 mg/dL (0.6-1.0) 1.9 mg/dL (0.6-1.0) Estimated GFR (Cockcroft-Gault) 29.5 26.0 Glucose Level 143 mg/dL (70-99) 114 mg/dL (70-99) Calcium Level 8.8 mg/dL (8.5-10.1) 7.5 mg/dL (8.5-10.1) O2 Saturation 99 % (92-99) Arterial Blood pH 7.45 (7.35-7.45) Arterial Blood pCO2 at Patient Temp 40 mmHg (35-46) Arterial Blood pO2 at Patient Temp 431 mmHg (65-108) Arterial Blood HCO3 27 mmol/L (21-28) Arterial Blood Base Excess 3 mmol/L (-3-3) FiO2 100 Myelocytes % 1 % (0-0) 25-Hydroxy Vitamin D Total 35.4 ng/mL (30-100) Test 03/29/17 09:45 03/29/17 09:55 Lactic Acid Level 3.1 mmol/L (0.4-2.0) O2 Saturation 94 % (92-99) Arterial Blood pH 7.38 (7.35-7.45) Arterial Blood pCO2 at Patient Temp 33 mmHg (35-46) Arterial Blood pO2 at Patient Temp 71 mmHg (65-108) Arterial Blood HCO3 19 mmol/L (21-28) Arterial Blood Base Excess -5 mmol/L (-3-3) FiO2 40 Laboratory Tests Test 03/28/17 13:00 03/28/17 23:20 03/28/17 23:30 03/29/17 05:40 White Blood Count 12.1 x10^3/uL (4.0-11.0) 21.6 x10^3/uL (4.0-11.0) 36.9 x10^3/uL (4.0-11.0) Red Blood Count 2.29 x10^6/uL (3.50-5.40) 1.58 x10^6/uL (3.50-5.40) 3.69 x10^6/uL (3.50-5.40) Hemoglobin 8.0 g/dL (12.0-15.5) 5.1 g/dL (12.0-15.5) 11.5 g/dL (12.0-15.5) Hematocrit 25.5 % (36.0-47.0) 16.1 % (36.0-47.0) 35.3 % (36.0-47.0) Mean Corpuscular Volume 112 fL (79-100) 102 fL (79-100) 96 fL (79-100) Mean Corpuscular Hemoglobin 35 pg (25-35) 32 pg (25-35) 31 pg (25-35) Mean Corpuscular Hemoglobin Concent 32 g/dL (31-37) 32 g/dL (31-37) 33 g/dL (31-37) Red Cell Distribution Width 15.1 % (11.5-14.5) 23.8 % (11.5-14.5) 17.0 % (11.5-14.5) Platelet Count 178 x10^3/uL (140-400) 160 x10^3/uL (140-400) 120 x10^3/uL (140-400) Neutrophils (%) (Auto) 88 % (31-73) 87 % (31-73) Lymphocytes (%) (Auto) 5 % (24-48) 8 % (24-48) Monocytes (%) (Auto) 4 % (0-9) 5 % (0-9) Eosinophils (%) (Auto) 3 % (0-3) 0 % (0-3) Basophils (%) (Auto) 0 % (0-3) 1 % (0-3) Neutrophils # (Auto) 10.6 x10^3uL (1.8-7.7) 32.0 x10^3uL (1.8-7.7) Lymphocytes # (Auto) 0.6 x10^3/uL (1.0-4.8) 2.8 x10^3/uL (1.0-4.8) Monocytes # (Auto) 0.5 x10^3/uL (0.0-1.1) 2.0 x10^3/uL (0.0-1.1) Eosinophils # (Auto) 0.4 x10^3/uL (0.0-0.7) 0.0 x10^3/uL (0.0-0.7) Basophils # (Auto) 0.1 x10^3/uL (0.0-0.2) 0.2 x10^3/uL (0.0-0.2) Segmented Neutrophils % 83 % (35-66) 90 % (35-66) Band Neutrophils % 6 % (0-9) 5 % (0-9) Lymphocytes % 4 % (24-48) 3 % (24-48) Monocytes % 6 % (0-10) 1 % (0-10) Basophils % 1 % (0-3) Platelet Estimate Adequate (ADEQUATE) Adequate (ADEQUATE) Polychromasia Slight Macrocytosis Mod Ovalocytes Few Prothrombin Time 14.6 SEC (11.7-14.0) Prothromb Time International Ratio 1.2 (0.8-1.1) Sodium Level 136 mmol/L (136-145) 138 mmol/L (136-145) Potassium Level 4.0 mmol/L (3.5-5.1) 5.7 mmol/L (3.5-5.1) Chloride Level 101 mmol/L (98-107) 106 mmol/L (98-107) Carbon Dioxide Level 35 mmol/L (21-32) 21 mmol/L (21-32) Anion Gap 0 (6-14) 11 (6-14) Blood Urea Nitrogen 19 mg/dL (7-20) 25 mg/dL (7-20) Creatinine 1.7 mg/dL (0.6-1.0) 1.9 mg/dL (0.6-1.0) Estimated GFR (Cockcroft-Gault) 29.5 26.0 Glucose Level 143 mg/dL (70-99) 114 mg/dL (70-99) Calcium Level 8.8 mg/dL (8.5-10.1) 7.5 mg/dL (8.5-10.1) O2 Saturation 99 % (92-99) Arterial Blood pH 7.45 (7.35-7.45) Arterial Blood pCO2 at Patient Temp 40 mmHg (35-46) Arterial Blood pO2 at Patient Temp 431 mmHg (65-108) Arterial Blood HCO3 27 mmol/L (21-28) Arterial Blood Base Excess 3 mmol/L (-3-3) FiO2 100 Myelocytes % 1 % (0-0) 25-Hydroxy Vitamin D Total 35.4 ng/mL (30-100) Test 03/29/17 09:45 03/29/17 09:55 Lactic Acid Level 3.1 mmol/L (0.4-2.0) O2 Saturation 94 % (92-99) Arterial Blood pH 7.38 (7.35-7.45) Arterial Blood pCO2 at Patient Temp 33 mmHg (35-46) Arterial Blood pO2 at Patient Temp 71 mmHg (65-108) Arterial Blood HCO3 19 mmol/L (21-28) Arterial Blood Base Excess -5 mmol/L (-3-3) FiO2 40 Medications Active Scripts Medications Dose Route/Sig Max Daily Dose Days Date Category Probiotic (Lactobacillus Acidophilus) 1 Each Capsule 1 Each PO BID 03/26/17 Rx Keflex (Cephalexin) 250 Mg Capsule 1 Cap PO AFTER DIALYSIS 03/26/17 Rx Furosemide 80 Mg Tablet 80 Mg PO DAILY 03/26/17 Rx [lidoderm ] 2 Patch TD DAILY 03/24/17 Reported [facility] Rx Tablet (Vit B Cmplx 3/Fa/Vit C/Biotin) 1 Each Tablet 1 Each PO 3X/WEEK 03/22/17 Reported [facility] Tablet (Folic Acid/Vitamin B Comp W-C) 0.8 Mg Tablet 0.8 Mg PO 03/22/17 Reported Cozaar (Losartan Potassium) 50 Mg Tablet 100 Mg PO DAILY 30 12/27/16 Rx Calcium 500 + D Tablet (Calcium Carbonate/Vitamin D3) 1 Each Tablet 500 Each PO BID 12/21/16 Reported Vitamin D3 (Cholecalciferol (Vitamin D3)) 1,000 Unit Tablet 2 Tab PO HS 12/09/16 Reported Escitalopram Oxalate 10 Mg Tablet 10 Mg PO DAILY 07/03/13 Reported Zocor (Simvastatin) 20 Mg Tablet 20 Mg PO HS 04/26/13 Reported Hydrocodone-Apap 7.5-325 (Hydrocodone Bit/Acetaminophen) 1 Each Tablet 1 Each PO PRN Q8HRS 04/26/13 Reported Lofibra (Fenofibrate,Micronized) 134 Mg Capsule 145 Mg PO DAILY 04/26/13 Reported Coreg (Carvedilol) 6.25 Mg Tablet 6.25 Mg PO BID 04/26/13 Reported Aspir 81 (Aspirin) 81 Mg Tablet. 81 Mg PO DAILY 04/26/13 Reported Albuterol Sulfate Hfa Inhaler (Albuterol Sulfate) 8.5 Gm Hfa.aer.ad 8.5 Gm IH PRN Q4HRS 04/26/13 Reported Impression . PT EVALUATED SEE ORDERS D/W RN WILL HOLD OFF ON WEANING TILL HEMODYNAMICALLY STABLE MONITOR H/H D/W DR CHEATHAM NOTE DICTATED SEPSIS HYPOVOLEMIA SHOCK RESP FAILURE THANKS CEFERINO TAYLOR MD Mar 29, 2017 11:12
[2017-03-29] MEDS ORDERED: MIDAZOLAM HCL/PF 2 MG/2 ML VIAL. IV PRN (11:15)
[2017-03-29] MEDS ORDERED: DIALYSIS PATIENT. MC PRN (11:15)
[2017-03-29] MEDS ORDERED: VANCOMYCIN PER PHARMACY MC PRN (11:15)
--- NOTE | 2017-03-29 11:24 | PDOC ---
Infectious Disease Note ROS ROS Vital Sign Vital Signs Vital Signs Date Time Temp Pulse Resp B/P (MAP) Pulse Ox O2 Delivery O2 Flow Rate FiO2 03/29/17 10:06 99 Ventilator 03/29/17 10:00 66 16 03/29/17 08:00 98.0 98.0 03/28/17 17:07 2 Labs Lab Laboratory Tests Test 03/28/17 13:00 03/28/17 23:20 03/28/17 23:30 03/29/17 05:40 White Blood Count 12.1 x10^3/uL (4.0-11.0) 21.6 x10^3/uL (4.0-11.0) 36.9 x10^3/uL (4.0-11.0) Red Blood Count 2.29 x10^6/uL (3.50-5.40) 1.58 x10^6/uL (3.50-5.40) 3.69 x10^6/uL (3.50-5.40) Hemoglobin 8.0 g/dL (12.0-15.5) 5.1 g/dL (12.0-15.5) 11.5 g/dL (12.0-15.5) Hematocrit 25.5 % (36.0-47.0) 16.1 % (36.0-47.0) 35.3 % (36.0-47.0) Mean Corpuscular Volume 112 fL (79-100) 102 fL (79-100) 96 fL (79-100) Mean Corpuscular Hemoglobin 35 pg (25-35) 32 pg (25-35) 31 pg (25-35) Mean Corpuscular Hemoglobin Concent 32 g/dL (31-37) 32 g/dL (31-37) 33 g/dL (31-37) Red Cell Distribution Width 15.1 % (11.5-14.5) 23.8 % (11.5-14.5) 17.0 % (11.5-14.5) Platelet Count 178 x10^3/uL (140-400) 160 x10^3/uL (140-400) 120 x10^3/uL (140-400) Neutrophils (%) (Auto) 88 % (31-73) 87 % (31-73) Lymphocytes (%) (Auto) 5 % (24-48) 8 % (24-48) Monocytes (%) (Auto) 4 % (0-9) 5 % (0-9) Eosinophils (%) (Auto) 3 % (0-3) 0 % (0-3) Basophils (%) (Auto) 0 % (0-3) 1 % (0-3) Neutrophils # (Auto) 10.6 x10^3uL (1.8-7.7) 32.0 x10^3uL (1.8-7.7) Lymphocytes # (Auto) 0.6 x10^3/uL (1.0-4.8) 2.8 x10^3/uL (1.0-4.8) Monocytes # (Auto) 0.5 x10^3/uL (0.0-1.1) 2.0 x10^3/uL (0.0-1.1) Eosinophils # (Auto) 0.4 x10^3/uL (0.0-0.7) 0.0 x10^3/uL (0.0-0.7) Basophils # (Auto) 0.1 x10^3/uL (0.0-0.2) 0.2 x10^3/uL (0.0-0.2) Segmented Neutrophils % 83 % (35-66) 90 % (35-66) Band Neutrophils % 6 % (0-9) 5 % (0-9) Lymphocytes % 4 % (24-48) 3 % (24-48) Monocytes % 6 % (0-10) 1 % (0-10) Basophils % 1 % (0-3) Platelet Estimate Adequate (ADEQUATE) Adequate (ADEQUATE) Polychromasia Slight Macrocytosis Mod Ovalocytes Few Prothrombin Time 14.6 SEC (11.7-14.0) Prothromb Time International Ratio 1.2 (0.8-1.1) Sodium Level 136 mmol/L (136-145) 138 mmol/L (136-145) Potassium Level 4.0 mmol/L (3.5-5.1) 5.7 mmol/L (3.5-5.1) Chloride Level 101 mmol/L (98-107) 106 mmol/L (98-107) Carbon Dioxide Level 35 mmol/L (21-32) 21 mmol/L (21-32) Anion Gap 0 (6-14) 11 (6-14) Blood Urea Nitrogen 19 mg/dL (7-20) 25 mg/dL (7-20) Creatinine 1.7 mg/dL (0.6-1.0) 1.9 mg/dL (0.6-1.0) Estimated GFR (Cockcroft-Gault) 29.5 26.0 Glucose Level 143 mg/dL (70-99) 114 mg/dL (70-99) Calcium Level 8.8 mg/dL (8.5-10.1) 7.5 mg/dL (8.5-10.1) O2 Saturation 99 % (92-99) Arterial Blood pH 7.45 (7.35-7.45) Arterial Blood pCO2 at Patient Temp 40 mmHg (35-46) Arterial Blood pO2 at Patient Temp 431 mmHg (65-108) Arterial Blood HCO3 27 mmol/L (21-28) Arterial Blood Base Excess 3 mmol/L (-3-3) FiO2 100 Myelocytes % 1 % (0-0) 25-Hydroxy Vitamin D Total 35.4 ng/mL (30-100) Test 03/29/17 09:45 03/29/17 09:55 Lactic Acid Level 3.1 mmol/L (0.4-2.0) O2 Saturation 94 % (92-99) Arterial Blood pH 7.38 (7.35-7.45) Arterial Blood pCO2 at Patient Temp 33 mmHg (35-46) Arterial Blood pO2 at Patient Temp 71 mmHg (65-108) Arterial Blood HCO3 19 mmol/L (21-28) Arterial Blood Base Excess -5 mmol/L (-3-3) FiO2 40 Objective Assessment SIRS vs sepsis - POA -on pressors/lactic acidosis Leukocytosis - S/p surgery/ 3 units PRBCs/Dexamethasone 03/28 CKD on HD Left open tib/fib fracture with wound vac 03/28 Closed right supracondylar femur fracture above a total knee s/p repair 03/28 Resp failure - intubated Plan Plan of Care Agree with Zosyn Add Vanc F/u labs and cults D/w Dr. Boyd 35 mins Thank you # [id number] JOHN CHEATHAM MD Mar 29, 2017 11:24
[2017-03-29] MEDS ORDERED: VANCOMYCIN 1 GM in IV NORMAL SALINE 250ML 250 ML IV ONE (11:30)
--- NOTE | 2017-03-29 11:54 | PDOC ---
CARDIO Progress Notes Date and Time Date of Service 03/29/17 Time of Evaluation 1130 Subjective Subjective: Other (intubated ) Vitals Vitals Vital Signs Date Time Temp Pulse Resp B/P (MAP) Pulse Ox O2 Delivery O2 Flow Rate FiO2 03/29/17 11:00 69 21 94/64 (74) 100 Ventilator 03/29/17 08:00 98.0 98.0 03/28/17 17:07 2 Weight Weight [ ] Input and Output Intake and Output Intake and Output 03/29/17 07:00 Intake Total 1414 ml Output Total 38 ml Balance 1376 ml Intake Oral 0 ml IV Total 730 ml Blood Product IV Normal Saline Flush 684 ml Output Urine Total 38 ml Laboratory Labs Laboratory Tests Test 03/28/17 13:00 03/28/17 23:20 03/28/17 23:30 03/29/17 05:40 White Blood Count 12.1 x10^3/uL (4.0-11.0) 21.6 x10^3/uL (4.0-11.0) 36.9 x10^3/uL (4.0-11.0) Red Blood Count 2.29 x10^6/uL (3.50-5.40) 1.58 x10^6/uL (3.50-5.40) 3.69 x10^6/uL (3.50-5.40) Hemoglobin 8.0 g/dL (12.0-15.5) 5.1 g/dL (12.0-15.5) 11.5 g/dL (12.0-15.5) Hematocrit 25.5 % (36.0-47.0) 16.1 % (36.0-47.0) 35.3 % (36.0-47.0) Mean Corpuscular Volume 112 fL (79-100) 102 fL (79-100) 96 fL (79-100) Mean Corpuscular Hemoglobin 35 pg (25-35) 32 pg (25-35) 31 pg (25-35) Mean Corpuscular Hemoglobin Concent 32 g/dL (31-37) 32 g/dL (31-37) 33 g/dL (31-37) Red Cell Distribution Width 15.1 % (11.5-14.5) 23.8 % (11.5-14.5) 17.0 % (11.5-14.5) Platelet Count 178 x10^3/uL (140-400) 160 x10^3/uL (140-400) 120 x10^3/uL (140-400) Neutrophils (%) (Auto) 88 % (31-73) 87 % (31-73) Lymphocytes (%) (Auto) 5 % (24-48) 8 % (24-48) Monocytes (%) (Auto) 4 % (0-9) 5 % (0-9) Eosinophils (%) (Auto) 3 % (0-3) 0 % (0-3) Basophils (%) (Auto) 0 % (0-3) 1 % (0-3) Neutrophils # (Auto) 10.6 x10^3uL (1.8-7.7) 32.0 x10^3uL (1.8-7.7) Lymphocytes # (Auto) 0.6 x10^3/uL (1.0-4.8) 2.8 x10^3/uL (1.0-4.8) Monocytes # (Auto) 0.5 x10^3/uL (0.0-1.1) 2.0 x10^3/uL (0.0-1.1) Eosinophils # (Auto) 0.4 x10^3/uL (0.0-0.7) 0.0 x10^3/uL (0.0-0.7) Basophils # (Auto) 0.1 x10^3/uL (0.0-0.2) 0.2 x10^3/uL (0.0-0.2) Segmented Neutrophils % 83 % (35-66) 90 % (35-66) Band Neutrophils % 6 % (0-9) 5 % (0-9) Lymphocytes % 4 % (24-48) 3 % (24-48) Monocytes % 6 % (0-10) 1 % (0-10) Basophils % 1 % (0-3) Platelet Estimate Adequate (ADEQUATE) Adequate (ADEQUATE) Polychromasia Slight Macrocytosis Mod Ovalocytes Few Prothrombin Time 14.6 SEC (11.7-14.0) Prothromb Time International Ratio 1.2 (0.8-1.1) Sodium Level 136 mmol/L (136-145) 138 mmol/L (136-145) Potassium Level 4.0 mmol/L (3.5-5.1) 5.7 mmol/L (3.5-5.1) Chloride Level 101 mmol/L (98-107) 106 mmol/L (98-107) Carbon Dioxide Level 35 mmol/L (21-32) 21 mmol/L (21-32) Anion Gap 0 (6-14) 11 (6-14) Blood Urea Nitrogen 19 mg/dL (7-20) 25 mg/dL (7-20) Creatinine 1.7 mg/dL (0.6-1.0) 1.9 mg/dL (0.6-1.0) Estimated GFR (Cockcroft-Gault) 29.5 26.0 Glucose Level 143 mg/dL (70-99) 114 mg/dL (70-99) Calcium Level 8.8 mg/dL (8.5-10.1) 7.5 mg/dL (8.5-10.1) O2 Saturation 99 % (92-99) Arterial Blood pH 7.45 (7.35-7.45) Arterial Blood pCO2 at Patient Temp 40 mmHg (35-46) Arterial Blood pO2 at Patient Temp 431 mmHg (65-108) Arterial Blood HCO3 27 mmol/L (21-28) Arterial Blood Base Excess 3 mmol/L (-3-3) FiO2 100 Myelocytes % 1 % (0-0) 25-Hydroxy Vitamin D Total 35.4 ng/mL (30-100) Test 03/29/17 09:45 03/29/17 09:55 Lactic Acid Level 3.1 mmol/L (0.4-2.0) O2 Saturation 94 % (92-99) Arterial Blood pH 7.38 (7.35-7.45) Arterial Blood pCO2 at Patient Temp 33 mmHg (35-46) Arterial Blood pO2 at Patient Temp 71 mmHg (65-108) Arterial Blood HCO3 19 mmol/L (21-28) Arterial Blood Base Excess -5 mmol/L (-3-3) FiO2 40 Physical Exam HEENT: Neck Supple W Full Motion Chest: Symmetric LUNGS: Other (mechanical ventilation) Heart: S1S2, RRR, other (distant heart tones) Abdomen: Soft N/T Extremities: Other (trace bilateral LE edema ) Neurology: other (sedated) Assessment Assessment Continuum of care Please see full consult 03/23/17 for further details HPI: This is a 71 yo female who was admitted for presyncope. Was noted with hyperkalemia and hypotension. Was given fluid replacement and dialyzed. Was discharge home 03/26/17. Unfortunately, patient had a mechanical fall and sustained an open left tib-fib fracture and closed right femur fracture and underwent surgical repair yesterday. Post-operatively, was noted to be hypotensive, which prompted this consult. 1. Mechanical fall with left tib-fib and right femur fracture; s/p surgical repair. 2. Hypotension; requiring pressor support 3. Leukocytosis with lactic acidosis; stress/steroid induced versus sepsis? ID following 4. Acute respiratory failure s/p intubation; ventilator management as per pulm 5. CAD: past CABG; recent echo with preserved LV function 6. ESRD on HD; continue as per nephrology 7. HLP Recommendations 1. Pressor support as warranted 2. Continue with secondary prevention. 3. Supportive care from a CV perspective. MASON MUNOZ APRN Mar 29, 2017 11:54
[2017-03-29] MEDS ORDERED: PIPERACILLIN/TAZOBACTAM 3.375 GM in IV DEXTROSE 5% 50 ML IV SCH (12:00)
[2017-03-29] MEDS ORDERED: GENTAMICIN SULFATE 80 MG in IV NORMAL SALINE 100ML 100 ML IV ONE (12:00)
--- NOTE | 2017-03-29 13:24 | PDOC ---
PROGRESS NOTES Subjective Subjective Intubated on ventilator. Per RN, pressure still continuously low. Has received 3 units PRBCs total, hbg this AM 11.5. Objective Vital Signs Vital Signs Date Time Temp Pulse Resp B/P (MAP) Pulse Ox O2 Delivery O2 Flow Rate FiO2 03/29/17 12:00 98.2 72 16 98/55 (69) 100 Ventilator 98.2 03/28/17 17:07 2 Physical Exam intubated on ventilator. Right lower extremity postoperative dressing with some bloody drainage proximally. Left lower extremity wound vac in place with good seal and continuous suction. Good cap refill at toes. Labs Laboratory Tests Test 03/28/17 13:00 03/28/17 23:20 03/28/17 23:30 03/29/17 05:40 White Blood Count 12.1 x10^3/uL (4.0-11.0) 21.6 x10^3/uL (4.0-11.0) 36.9 x10^3/uL (4.0-11.0) Red Blood Count 2.29 x10^6/uL (3.50-5.40) 1.58 x10^6/uL (3.50-5.40) 3.69 x10^6/uL (3.50-5.40) Hemoglobin 8.0 g/dL (12.0-15.5) 5.1 g/dL (12.0-15.5) 11.5 g/dL (12.0-15.5) Hematocrit 25.5 % (36.0-47.0) 16.1 % (36.0-47.0) 35.3 % (36.0-47.0) Mean Corpuscular Volume 112 fL (79-100) 102 fL (79-100) 96 fL (79-100) Mean Corpuscular Hemoglobin 35 pg (25-35) 32 pg (25-35) 31 pg (25-35) Mean Corpuscular Hemoglobin Concent 32 g/dL (31-37) 32 g/dL (31-37) 33 g/dL (31-37) Red Cell Distribution Width 15.1 % (11.5-14.5) 23.8 % (11.5-14.5) 17.0 % (11.5-14.5) Platelet Count 178 x10^3/uL (140-400) 160 x10^3/uL (140-400) 120 x10^3/uL (140-400) Neutrophils (%) (Auto) 88 % (31-73) 87 % (31-73) Lymphocytes (%) (Auto) 5 % (24-48) 8 % (24-48) Monocytes (%) (Auto) 4 % (0-9) 5 % (0-9) Eosinophils (%) (Auto) 3 % (0-3) 0 % (0-3) Basophils (%) (Auto) 0 % (0-3) 1 % (0-3) Neutrophils # (Auto) 10.6 x10^3uL (1.8-7.7) 32.0 x10^3uL (1.8-7.7) Lymphocytes # (Auto) 0.6 x10^3/uL (1.0-4.8) 2.8 x10^3/uL (1.0-4.8) Monocytes # (Auto) 0.5 x10^3/uL (0.0-1.1) 2.0 x10^3/uL (0.0-1.1) Eosinophils # (Auto) 0.4 x10^3/uL (0.0-0.7) 0.0 x10^3/uL (0.0-0.7) Basophils # (Auto) 0.1 x10^3/uL (0.0-0.2) 0.2 x10^3/uL (0.0-0.2) Segmented Neutrophils % 83 % (35-66) 90 % (35-66) Band Neutrophils % 6 % (0-9) 5 % (0-9) Lymphocytes % 4 % (24-48) 3 % (24-48) Monocytes % 6 % (0-10) 1 % (0-10) Basophils % 1 % (0-3) Platelet Estimate Adequate (ADEQUATE) Adequate (ADEQUATE) Polychromasia Slight Macrocytosis Mod Ovalocytes Few Prothrombin Time 14.6 SEC (11.7-14.0) Prothromb Time International Ratio 1.2 (0.8-1.1) Sodium Level 136 mmol/L (136-145) 138 mmol/L (136-145) Potassium Level 4.0 mmol/L (3.5-5.1) 5.7 mmol/L (3.5-5.1) Chloride Level 101 mmol/L (98-107) 106 mmol/L (98-107) Carbon Dioxide Level 35 mmol/L (21-32) 21 mmol/L (21-32) Anion Gap 0 (6-14) 11 (6-14) Blood Urea Nitrogen 19 mg/dL (7-20) 25 mg/dL (7-20) Creatinine 1.7 mg/dL (0.6-1.0) 1.9 mg/dL (0.6-1.0) Estimated GFR (Cockcroft-Gault) 29.5 26.0 Glucose Level 143 mg/dL (70-99) 114 mg/dL (70-99) Calcium Level 8.8 mg/dL (8.5-10.1) 7.5 mg/dL (8.5-10.1) O2 Saturation 99 % (92-99) Arterial Blood pH 7.45 (7.35-7.45) Arterial Blood pCO2 at Patient Temp 40 mmHg (35-46) Arterial Blood pO2 at Patient Temp 431 mmHg (65-108) Arterial Blood HCO3 27 mmol/L (21-28) Arterial Blood Base Excess 3 mmol/L (-3-3) FiO2 100 Myelocytes % 1 % (0-0) 25-Hydroxy Vitamin D Total 35.4 ng/mL (30-100) Test 03/29/17 09:45 03/29/17 09:55 Lactic Acid Level 3.1 mmol/L (0.4-2.0) O2 Saturation 94 % (92-99) Arterial Blood pH 7.38 (7.35-7.45) Arterial Blood pCO2 at Patient Temp 33 mmHg (35-46) Arterial Blood pO2 at Patient Temp 71 mmHg (65-108) Arterial Blood HCO3 19 mmol/L (21-28) Arterial Blood Base Excess -5 mmol/L (-3-3) FiO2 40 Laboratory Tests Test 03/28/17 23:20 03/28/17 23:30 03/29/17 05:40 03/29/17 09:45 White Blood Count 21.6 x10^3/uL (4.0-11.0) 36.9 x10^3/uL (4.0-11.0) Red Blood Count 1.58 x10^6/uL (3.50-5.40) 3.69 x10^6/uL (3.50-5.40) Hemoglobin 5.1 g/dL (12.0-15.5) 11.5 g/dL (12.0-15.5) Hematocrit 16.1 % (36.0-47.0) 35.3 % (36.0-47.0) Mean Corpuscular Volume 102 fL (79-100) 96 fL (79-100) Mean Corpuscular Hemoglobin 32 pg (25-35) 31 pg (25-35) Mean Corpuscular Hemoglobin Concent 32 g/dL (31-37) 33 g/dL (31-37) Red Cell Distribution Width 23.8 % (11.5-14.5) 17.0 % (11.5-14.5) Platelet Count 160 x10^3/uL (140-400) 120 x10^3/uL (140-400) O2 Saturation 99 % (92-99) Arterial Blood pH 7.45 (7.35-7.45) Arterial Blood pCO2 at Patient Temp 40 mmHg (35-46) Arterial Blood pO2 at Patient Temp 431 mmHg (65-108) Arterial Blood HCO3 27 mmol/L (21-28) Arterial Blood Base Excess 3 mmol/L (-3-3) FiO2 100 Neutrophils (%) (Auto) 87 % (31-73) Lymphocytes (%) (Auto) 8 % (24-48) Monocytes (%) (Auto) 5 % (0-9) Eosinophils (%) (Auto) 0 % (0-3) Basophils (%) (Auto) 1 % (0-3) Neutrophils # (Auto) 32.0 x10^3uL (1.8-7.7) Lymphocytes # (Auto) 2.8 x10^3/uL (1.0-4.8) Monocytes # (Auto) 2.0 x10^3/uL (0.0-1.1) Eosinophils # (Auto) 0.0 x10^3/uL (0.0-0.7) Basophils # (Auto) 0.2 x10^3/uL (0.0-0.2) Segmented Neutrophils % 90 % (35-66) Band Neutrophils % 5 % (0-9) Lymphocytes % 3 % (24-48) Monocytes % 1 % (0-10) Myelocytes % 1 % (0-0) Platelet Estimate Adequate (ADEQUATE) Sodium Level 138 mmol/L (136-145) Potassium Level 5.7 mmol/L (3.5-5.1) Chloride Level 106 mmol/L (98-107) Carbon Dioxide Level 21 mmol/L (21-32) Anion Gap 11 (6-14) Blood Urea Nitrogen 25 mg/dL (7-20) Creatinine 1.9 mg/dL (0.6-1.0) Estimated GFR (Cockcroft-Gault) 26.0 Glucose Level 114 mg/dL (70-99) Calcium Level 7.5 mg/dL (8.5-10.1) 25-Hydroxy Vitamin D Total 35.4 ng/mL (30-100) Lactic Acid Level 3.1 mmol/L (0.4-2.0) Test 03/29/17 09:55 O2 Saturation 94 % (92-99) Arterial Blood pH 7.38 (7.35-7.45) Arterial Blood pCO2 at Patient Temp 33 mmHg (35-46) Arterial Blood pO2 at Patient Temp 71 mmHg (65-108) Arterial Blood HCO3 19 mmol/L (21-28) Arterial Blood Base Excess -5 mmol/L (-3-3) FiO2 40 Assessment Assessment POD #1 left tibia ORIF and I&D for open tib-fib fracture, right femur ORIF above TKA Problems: Plan Plan of Care Continue POC including DVT ppx. Change right lower extremity dressing - d/w RN. Wound care nurse consulted for left lower extremity wound vac management. JOSELYN GRIFFITH Mar 29, 2017 13:24
[2017-03-29] MEDS ORDERED: HEPARIN PF for SUB-Q USE 5,000 UNIT/0.5 ML VIAL. SQ SCH (14:00)
[2017-03-29] MEDS ORDERED: LIDOCAINE 1% PF 2 ML VIAL. ONE ×2 (15:57→16:00)
[2017-03-29] MEDS ORDERED: BISACODYL 10 MG SUPP.RECT. PR PRN (16:00)
--- NOTE | 2017-03-29 18:11 | RAD ---
AP pelvis radiograph 03/29/2017 Clinical indication: Femoral line placement. COMPARISON: AP pelvis 02/10/2017 . FINDINGS: Interval placement of a left femoral approach central venous catheter with distal tip overlying the junction of the common iliacs with the IVC. There is a nonobstructive bowel gas pattern in the visualized portions. Partial visualization of a transesophageal gastric tube with proximal side-port overlying the GE junction in the distal tip just below the GE junction level. There is a large prominent left basilar pneumothorax IMPRESSION: 1. Development of a large left pneumothorax. This result was discussed with floor nurse, Ebony Link, by telephone at 6:10 PM 03/29/[address] Luis Felipe Amador. 2.Left femoral approach central venous catheter with distal tip near the junction of the common iliacs and IVC. 3. Transesophageal gastric tube with proximal side-port at the GE junction. Advancement is suggested. Electronically signed by: Luis Felipe Amador MD (03/29/2017 6:08 PM) [facility]
--- NOTE | 2017-03-29 18:12 | RAD ---
AP abdominal radiograph 03/29/2017 Clinical indication: Femoral central line placement. COMPARISON: Same day chest radiograph. FINDINGS: There is a large left pneumothorax with a basilar component. There is a nonobstructive bowel gas pattern in the visualized portions. Left femoral approach central venous catheter noted with tip near the junction of the common iliac and IVC. IMPRESSION: 1. Large left pneumothorax. This result was previously communicated to the floor nurse, Ebony Link, by Dr. Luis Felipe Amador. 2. No radiographic evidence of bowel obstruction. Electronically signed by: Luis Felipe Amador MD (03/29/2017 6:09 PM) [facility]
--- NOTE | 2017-03-29 18:15 | RAD ---
AP chest radiograph 03/29/2017 CLINICAL INDICATION: Pneumothorax. Central line placement. COMPARISON: Same day chest radiograph 03/29/2017 FINDINGS: There has been development of a large left pneumothorax with a large basilar component with near complete atelectasis of the left lung. Endotracheal tube in similar position. Transesophageal gastric tube courses below the level of the hemidiaphragms with the distal tip and proximal side-port just below the GE junction level. Prior median sternotomy and CABG. There are prominent interstitial opacities in the aerated portions of the left lung and throughout the right lung likely fibrosis. Calcified granuloma in the peripheral right midlung. IMPRESSION: Development of large left pneumothorax with near complete atelectasis of the left lung. This result was known to the primary team and previously discussed with floor nurse Ebony Link by telephone at 6:10 PM 03/29/[address] Luis Felipe Amador. Electronically signed by: Luis Felipe Amador MD (03/29/2017 6:12 PM) [facility]
[2017-03-29] MEDS ORDERED: VASOPRESSIN 40 UNIT in IV DEXTROSE 5% 100 ML IV PRN (18:30)
--- NOTE | 2017-03-29 18:53 | CONS ---
DATE OF CONSULTATION: 03/29/2017 PATIENT'S ROOM: ICU 6 REQUESTING PHYSICIAN: Rory London MD REASON FOR CONSULTATION: Sepsis. HISTORY OF PRESENT ILLNESS: Currently, the patient is intubated and sedated, unable to provide any past medical history, history of present illness. She is a 71-year-old female with a history of COPD and chronic kidney disease, on hemodialysis. She was recently admitted to [facility] with a presyncopal episode and some hypotension, subsequently underwent a fistula revision too, had been on some cephalexin and was discharged home on the . According to the medical records, she was brought back to the Emergency Room on 03/28, having suffered a mechanical fall. She was evaluated by Dr. Haji. She was found to have an open left tib fracture as well as a closed right supracondylar femur fracture above a total knee. She was taken to the operating room by Dr. Haji and has undergone repair of this, is now in the intensive care. She is intubated. There is a wound VAC to her left lower extremity. She is on pressors. Today, her white blood cell count is increased to 36.9, hence I have been consulted. PAST MEDICAL HISTORY: According to the chart, positive for end-stage renal disease, coronary artery disease, congestive heart failure, COPD. She does have a history of E. coli pansensitive UTI back in 11/2016. PAST SURGICAL HISTORY: Positive for CABG as well as back surgery and knee replacement as well as the above-mentioned surgeries. Additionally, she has undergone a right upper extremity fistula placement or AV graft. REVIEW OF SYSTEMS: Unobtainable. ALLERGIES: LISTED QUININE. SOCIAL HISTORY: No tobacco or alcohol. Apparently lives with her family. FAMILY HISTORY: Positive for hypertension. CURRENT MEDICATIONS: She is on a phenylephrine. She did receive cefazolin as well as a dose of gentamicin IV. She has received IV dexamethasone on the . Also listed are aspirin, fentanyl, heparin, morphine, neostigmine. Other meds are available and have been reviewed in the chart. PHYSICAL EXAMINATION: VITAL SIGNS: She is afebrile, temperature 98, pulse 66, respirations 16, blood pressure 108/50, satting 100% on the ventilator with phenylephrine in place. GENERAL: She is intubated. She is sedated. She looks thin. HEENT: Her pupils are reactive; they appear to be post-cataract. NECK: No JVD. LUNGS: Decreased in the bases. HEART: S1, S2. ABDOMEN: Mildly distended, is soft. GENITOURINARY: Faith is in place. EXTREMITIES: She has a peripheral IV. She has a right upper extremity fistula without signs of any complications. She has 2 stitches in her left chest area, appeared to be clean. She has a wound VAC on her left leg. Her right leg is dressed heavily postoperatively with an Ulisses wrap with some minimal drainage. SKIN: Appears to be pale. No rash. LABORATORY VALUES: White count 36.9, hemoglobin 11.5, platelets of 120 with a 90 segs, 5 bands. Creatinine 1.9, glucose of 114. Lactic acid of 3.1. No current cultures. Most recent chest x-ray: Coarse lung markings throughout bilateral lungs. IMPRESSION: 1. Systemic inflammatory response syndrome versus sepsis, present on admission, currently on pressors, has lactic acidosis, leukocytosis. 2. Leukocytosis status post surgery as well as 3 units of packed red blood cells and dexamethasone that was dosed on 03/28. 3. Chronic kidney disease, on hemodialysis. 4. Left open tib-fib fracture with a wound VAC, repair on 03/28. 5. Closed right supracondylar femoral fracture above a total knee, status post repair on the . 6. Respiratory failure, currently intubated. RECOMMENDATIONS: Again, she has received a cefazolin, dose of IV gentamicin. Agree with the change to Zosyn, but we will add vancomycin too. I will follow up labs and cultures. This was discussed with Dr. Boyd. I spent 35 minutes of critical care time. Thank you for allowing me to participate in the patient's care. Should you have further questions, please do not hesitate to contact me. JOHN CHEATHAM MD DR: GABBY/kvng JOB#: [id number] / [id number]
[2017-03-29 20:57] LABS: HEMATOCRIT 30.9 % (36.0-47.0); HEMOGLOBIN 10.2 g/dL (12.0-15.5)
[2017-03-29] MEDS ORDERED: FAMOTIDINE 20 MG/2 ML VIAL IVP SCH (21:00)
[2017-03-29] MEDS ORDERED: CHLORHEXIDINE 0.12% 15 ML MOUTHWASH. MM SCH (21:00)
--- NOTE | 2017-03-30 01:36 | CONS ---
DATE OF CONSULTATION: 03/29/2017 ATTENDING PHYSICIAN: Dr. Bullock. REASON FOR CONSULTATION: The patient seen in pulmonary consultation at the request of Dr. Bullock for acute respiratory failure on mechanical ventilation. HISTORY OF PRESENT ILLNESS: The patient is a 71-year-old that presented with previous history of total knee replacement some years ago. She had mechanical fall today. Lived at home with her and was ambulating. She sustained a distal right femoral fracture and open tib-fib fracture on the left. The patient was taken to the operating room last evening. I did receive a phone call indicating that the patient was on mechanical ventilation here. As she was hypotensive, she was given some IV fluids and started on pressors. This morning, she continues to require pressors. She is receiving IV fluids. She has been transfused. She underwent an irrigation and debridement of open fracture including skin, subcutaneous tissue and bone. She had an open treatment and internal fixation of the left tibial fracture with plate and screw fixation. She also had open treatment and internal fixation of the right femoral fracture with plate and screw fixation involving the total knee arthroplasty. There was closed supracondylar femur fracture above the total knee arthroplasty. PAST MEDICAL HISTORY: Otherwise remarkable for previous COPD, respiratory failure, coronary artery disease, CHF, hypertension, hyperlipidemia, diastolic heart failure, coronary artery disease and depression. PAST SURGICAL HISTORY: Status post coronary artery bypass surgery, knee replacement and previous CABG. ALLERGIES: QUININE. REVIEW OF SYSTEMS: Unobtainable secondary to the patient's condition. CURRENT MEDICATION: List was reviewed. SOCIAL HISTORY: She quit tobacco approximately 10 years ago. FAMILY HISTORY: Noncontributory in this case. PHYSICAL EXAMINATION: GENERAL: On examination, once again the patient was in the intensive care unit requiring IV pressors and assist control ventilation. HEENT: Eyes, the sclerae were nonicteric. NECK: Jugular venous distention was not elevated. No lymphadenopathy. CHEST: Full expansion. LUNGS: Poor airway flow anteriorly. No wheezes. CARDIOVASCULAR: Regular rate and rhythm with S1, S2, no S3. ABDOMEN: Soft, nontender and nondistended. EXTREMITIES: No clubbing or cyanosis. Evidence of recent surgery. NEUROLOGIC: The patient had been sedated. LABORATORY DATA: Reviewed. White count was elevated at 36,000, hemoglobin and hematocrit up to 11.5. She went from 8 to 5 to 11, status post transfusion. Arterial blood gas this morning, pH of 7.38, PaCO2 of 33, pO2 of 71 and bicarbonate was 19. INR was 1.2. Electrolytes were noted. Potassium was elevated, BUN was elevated and creatinine was elevated. Lactic acid level was elevated. IMPRESSION: 1. Acute respiratory ____, status post repair of femoral fracture. 2. Severe chronic obstructive pulmonary disease, end-stage. 3. Coronary artery disease, status post coronary artery bypass grafting. 4. Acute on chronic renal failure. 5. Acute blood loss anemia. 6. Septic shock. 7. Severe protein malnutrition present upon admission. PLAN: 1. The patient is seen in consultation by Infectious Disease Service. We will continue broad spectrum antibiotics. 2. Continue pressors and IV fluids. 3. Repeat lactic acid level. 4. Monitor hemoglobin closely. 5. Compressive sequential devices for now. 6. We will defer anticoagulation to orthopedic service. 7. Nebulized treatments. 8. We will await for hemodynamic stability prior to weaning trial. 9. P.r.n. sedation. I do appreciate the privilege in sharing in the patient's care. Total cumulative critical care time is 50 minutes. CEFERINO TAYLOR MD DR: THEE/kvng JOB#: [id number] / [id number]
--- NOTE | 2017-03-30 07:35 | RAD ---
Portable chest, 03/29/2017, 6:10 PM: History: Check chest tube placement, pneumothorax Comparison is made to the study of earlier the same day. The tracheostomy tube remains in place in satisfactory position. An NG tube extends into the stomach. A left pigtail pleural drain has been placed. There has been evacuation of the majority of the large left pneumothorax. There is only a tiny residual pneumothorax superolaterally. There may be a residual subpulmonic component. The midline shift has resolved. The heart size is normal. There are bilateral pulmonary interstitial opacities as previously noted. No new pulmonary infiltrate is seen. No significant pleural fluid is evident. IMPRESSION: 1. Interval placement of a left pleural drain with nearly complete resolution of the large left pneumothorax. 2. No other significant interval change since earlier in the day.
--- NOTE | 2017-03-30 08:35 | PDOC ---
Provider Note Provider Note IR NOTE 12.6.15 I was called to ICU for emergent central venous access. I spoke with family before procedure. Left common femoral vein tripple lumen CVC placed without complication. On followup up pelvic radiograph a large left tension pneumothorax was seen. The patient was becomingly increasingly hemodynamically unstable. I I therefore placed an emergent left thoracostomy tube, with near resolution of pneumothorax on followup radiograph. APRIL EGAN MD Mar 30, 2017 08:35
[2017-03-31] MEDS ORDERED: VANCOMYCIN RANDOM LEVEL. MC ONE (05:00)
== END 2017-03-29 22:00 | disposition expired | DRG 853 ==
LOC: ER 11:25 → 4 NORTH 12:20 → 1 WEST ICU 03-29
PROVIDERS: ADMIT Internal Medicine; ATTEND Internal Medicine
PROC: 5A1935Z Respiratory Ventilation, Less than 24 Consecutive Hours (ICD-10-PCS; 2017-03-28)
PROC: 5A1D70Z Performance of Urinary Filtration, Intermittent, Less than 6 Hours Per Day (ICD-10-PCS; 2017-03-28)
PROC: 0BH17EZ Insertion of Endotracheal Airway into Trachea, Via Natural or Artificial Opening (ICD-10-PCS; 2017-03-28)
PROC: 30233N1 Transfusion of Nonautologous Red Blood Cells into Peripheral Vein, Percutaneous Approach (ICD-10-PCS; 2017-03-28)
PROC: 0QSK04Z Reposition Left Fibula with Internal Fixation Device, Open Approach (ICD-10-PCS; principal; 2017-03-28 17:00)
PROC: 0QSH04Z Reposition Left Tibia with Internal Fixation Device, Open Approach (ICD-10-PCS; 2017-03-28 17:00)
PROC: 06H033Z Insertion of Infusion Device into Inferior Vena Cava, Percutaneous Approach (ICD-10-PCS; 2017-03-29)
DX: A41.9 Sepsis, unspecified organism (principal); J96.00 Acute respiratory failure, unspecified whether with hypoxia or hypercapnia; R65.21 Severe sepsis with septic shock; E43 Unspecified severe protein-calorie malnutrition; I13.2 Hypertensive heart and chronic kidney disease with heart failure and with stage 5 chronic kidney disease, or end stage renal disease; E87.2 Acidosis; N17.9 Acute kidney failure, unspecified; D62 Acute posthemorrhagic anemia; E86.1 Hypovolemia; N18.6 End stage renal disease; S82.832B Other fracture of upper and lower end of left fibula, initial encounter for open fracture type I or II; S82.102B Unspecified fracture of upper end of left tibia, initial encounter for open fracture type I or II; S72.451A Displaced supracondylar fracture without intracondylar extension of lower end of right femur, initial encounter for closed fracture; I50.32 Chronic diastolic (congestive) heart failure; Z66 Do not resuscitate; W18.30XA Fall on same level, unspecified, initial encounter; E87.5 Hyperkalemia; E78.00 Pure hypercholesterolemia, unspecified; E78.5 Hyperlipidemia, unspecified; I25.10 Atherosclerotic heart disease of native coronary artery without angina pectoris; M81.0 Age-related osteoporosis without current pathological fracture; K21.9 Gastro-esophageal reflux disease without esophagitis; M19.90 Unspecified osteoarthritis, unspecified site; Z96.651 Presence of right artificial knee joint; Z96.1 Presence of intraocular lens; Z82.49 Family history of ischemic heart disease and other diseases of the circulatory system; Z87.891 Personal history of nicotine dependence; Z91.81 History of falling; Z95.1 Presence of aortocoronary bypass graft; Z98.1 Arthrodesis status; Z99.2 Dependence on renal dialysis; Y93.89 Activity, other specified; Y92.098 Other place in other non-institutional residence as the place of occurrence of the external cause; Y99.8 Other external cause status; Z87.440 Personal history of urinary (tract) infections; Z88.8 Allergy status to other drugs, medicaments and biological substances; Z98.51 Tubal ligation status; Z68.22 Body mass index [BMI] 22.0-22.9, adult
CPT/HCPCS: 29515; 36415; 36569; 36600; 70450; 71010; 72170; 73560; 73562; 73590; 73700; 74000; 76000; 80048; 82306; 82805; 83605; 85007; 85014; 85018; 85025; 85027; 85610; 86850; 86900; 86901; 86920; 87040; 87641; 90715; 94002; 94003; C1713; C1769; J0171; J0690; J1100; J1580; J2250; J2270; J2405; J2543; J2704; J2710; J2795; J3010; J3370; J3490; J7030; J7050; P9016; P9045; 99291-25; A4461; J2001